=== PATIENT | male | born 1975 | race Caucasian/White ===

== ENCOUNTER → 2017-02-16 | Outpatient (CLI) | payer OTHER ==
[~2017-02-16] MED LIST: BUPR100T8 PO; CLOB-65 TOP; DOCU-149 PO; DOCU-94 PO; FLUT0.15 NAE; GABA800T PO; INSU100I23 INJ; INSU32MI13; LANC1MIS; LISI-729 PO; LSN5 PO; METF500T5 PO; METH10SO PO; NRN800 PO; NVLGIPEN INJ; OMEP40CA PO; OMEP40CA41 PO; RIVA1.5T PO; SIMV-151 PO; SIMV20TA2 PO; SULF800T23 PO; SUMA100T15 PO; SUMA100T16 PO; TRIA37.5 PO; VALA1TAB31 PO; VENL75CA73 PO; WLLSR150 PO; XRL15 PO; [UNRECOGNIZED DRUG - CODE]; [UNRECOGNIZED DRUG - CODE] PO; [UNRECOGNIZED DRUG - REMARK] PO
--- NOTE | 2017-02-17 06:38 | SPLIT NIGHT TECHNICIAN REPORT ---
[facility] Split Night Polysomnogram - Associate Sales Manager Report Study date: 02/16/2017 Referring Physician: Iona Mak M.D. Name: GERALDINE CABALLERO Hellen Associate Sales Manager: Roya Azar [facility]. Date of : 1975 Height: 41 years, Height 6' 1" Sex: Male Weight: 337 lbs Age: 41 BMI: Medications: 44.46 SUMATRIPTAN 100 MG, DOCUSATE SODIUM 100 MG, OMEPRAZOLE 40 MG, LISINOPRIL 5 MG, GABAPENTIN 800 MG, WELLBUTRIN 100 MG, SIMVASTATIN 20 MG, XARELTO 15 MG, METFORMIN 500 MG, METHADONE 10 MG/5 ML Patient History 41 yr-old male here for a baseline/split study. He has had previous sleep testing. He was found to be positive for TONY but could not tolerate CPAP. He is back after weight loss to assess his TONY. His [place] scale is 2. The test was started on room air. ETCO2 testing is included in this study. Room 1 Parameters Monitored NPSG: E1-M2, E2-M1, Fp1-M2, Fp2-M1, F3-M2, F4-M2, F4-M1, C3-M2, C4-M2, C4-M1, O1-M2, O2-M2, O2-M1, T3-M2, T4-M1, P3-M2, P4-M1, CHIN1, CHIN2, HR, EKG, Legs, PFLOW, SNOR, FLOW, CFLOW, Tidal Volume, THOR, ABDO, SpO2, PLTH, CPRESS, ETCO2 Wave, ETCO2, pH SLEEP SUMMARY DATA DIAGNOSTIC TREATMENT Lights Out: 10:14:19 PM 1:35:19 AM Lights On: 1:18:49 AM 5:47:49 AM Total Recording Time (TRT): 184.5 min. 252.5 min. Total Sleep Time (TST): 130.5 min. 216.0 min. NREM Time: 130.5 min. 117.5 min. REM Time: 0.0 min. 98.5 min. Sleep Period Time (SPT): 160.0 min. 244.0 min. Sleep Efficiency (SE): 71 % 86 % Sleep Latency: 24.5 min. 8.5 min. Arousal Index: 42.3 8.3 PAP Treatment Levels: 4, 6, 8, 9 * Optimal Pressure(s) SLEEP STAGING DATA DIAGNOSTIC TREATMENT Duration (min) TST % Duration (min) TST % Stage Wake: 54.0 min. -- 36.5 min. -- WASO: 29.5 min. -- 28.0 min. -- NREM: 130.5 min. 100 % 117.5 min. 54 % Stage N1: 35.5 min. 27 % 13.0 min. 6 % Stage N2: 89.5 min. 69 % 104.5 min. 48 % Stage N3: 5.5 min. 4 % 0.0 min. 0 % REM: 0.0 min. 0 % 98.5 min. 46 % POSITIONAL DATA Event Count Index Event Count Index Supine: 62 42.6 22 9.8 Supine NREM: 62 42.6 9 7.6 Supine REM: N/A N/A 13 12 Non-Supine: 32 36.4 3 2.2 Non-Supine NREM: 32 36.4 1 1.3 Non-Supine REM: N/A N/A 2 3.5 AROUSAL SUMMARY DATA: Event Count Index Event Count Index Apnea Arousals: 11 6.0 3 1.1 Hypopnea Arousals: 14 6.4 1 0.3 Snore Arousals: 51 23.4 6 1.7 PLM Arousals: 3 1.4 0 0.0 Non-Specific Arousals: 10 4.6 17 4.7 Total Arousals: 92 42.3 30 8.3 MYOCLONUS (PLM) Event Count Index Event Count Index PLM: 104 47.8 84 23.3 PLM AROUSAL: 3 1.4 0 0.0 PLM W/O AROUSAL 104 47.8 84 23.3 PLM W/RESP EVENT 15 0.0 0 0.0 MYOCLONUS (PLM) Event Count Index Event Count Index LM: 6 14.3 41 11.4 LM AROUSAL: 6 2.8 3 0.8 LM W/O AROUSAL LM W/RESP EVENT LM NON SPECIFIC 106 48.7 120 33.3 HEART RATE DATA DIAGNOSTIC TREATMENT Sleep (bpm): 84 81 REM (bpm): N/A 91 NREM (bpm): 92 91 Tachycardia Count: 0 0 Tachycardia Duration: 0.00 0 Bradycardia Count: 0 0 Bradycardia Duration: 0.00 0 DIAGNOSTIC PORTION TREATMENT PORTION RESPIRATORY DATA Event Count Index Event Count Index AHI: -- 40.5 -- 6.9 RDI: -- 43.2 -- 7 Obstructive Apnea: 13 6.0 0 0.0 Central Apnea: 0 0.0 4 1.1 Mixed Apnea: 0 0.0 0 0.0 Hypopnea: 75 34.5 21 5.8 RERA: 6 2.8 0 0.0 Total Apneas: 13 6.0 4 1.1 RESPIRATORY DATA REM NREM SLEEP REM NREM SLEEP Supine Position: Obstructive Apneas: N/A 0 0 0 0 0 Central Apneas: N/A 0 0 0 4 4 Mixed Apneas: N/A 0 0 0 0 0 Hypopneas: N/A 61 61 13 5 18 RERA N/A 1 1 0 0 0 Total Supine Events: N/A 62 62 13 9 22 Supine AHI: N/A 42.6 42.6 12 7.6 9.8 Supine RDI: N/A 43.3 43.3 12.2 7.6 9.8 REM NREM SLEEP REM NREM SLEEP Non-Supine Position: Obstructive Apneas: N/A 13 13 0 0 0 Central Apneas: N/A 0 0 0 0 0 Mixed Apneas: N/A 0 0 0 0 0 Hypopneas: N/A 14 14 2 1 3 RERA N/A 5 5 0 0 0 Total Supine Events: N/A 32 32 2 1 3 Supine AHI: N/A 36.4 36.4 3.5 1.3 2.2 Supine RDI: N/A 43.1 43.1 3.5 1.3 2.2 OXYGEN DESTAURATION DATA: Event Count Index Event Count Index REM Desaturations: N/A N/A 36 21.9 NREM Desaturations: 105 48.3 12 6.1 SNORE DATA DIAGNOSTIC TREATMENT Snore Time: 32.9 1:43:49 AM Snore TST%: 11 9 Snore Arousal Count: 51 6 Snore Arousal Index: 23.4 1.7 Desaturation Event Summary: Minimum %SpO2 Event Count Mean/Min/Max Duration(sec.) Desaturation Index % Time In Bed > 90 162 24.5 / 4.3 / 60.0 32.2 71.8 86 - 90 20 23.1 / 7.8 / 60.0 11.0 26.0 81 - 85 0 N/A 0.0 2.2 76 - 80 0 N/A 0.0 0.0 71 - 75 0 N/A 0.0 0.0 66 - 70 0 N/A 0.0 0.0 61 - 65 0 N/A 0.0 0.0 56 - 60 0 N/A 0.0 0.0 51 - 55 0 N/A 0.0 0.0 < 50 0 N/A 0.0 0.0 OXYGEN SATURATION DATA DIAGNOSTIC TREATMENT SpO2 Mean Sleep: 92 % 91 % SpO2 Mean REM: N/A % 91 % SpO2 Mean NREM: 92 % 91 % SpO2 Minimum Sleep: 86 % 83 % SpO2 Minimum REM: N/A % 83 % SpO2 Minimum NREM: 86 % 83 % Time Below 90% (TST): 9.7 49.2 Time Below 88% (TST): 0.3 15.7 Total REM NREM Awake <50% 0.0 min. 0.0 min. 0.0 min. 0.0 min. 51 - 60% 0.0 min. 0.0 min. 0.0 min. 0.0 min. 61 - 70% 0.0 min. 0.0 min. 0.0 min. 0.0 min. 71 - 80% 0.0 min. 0.0 min. 0.0 min. 0.0 min. 81 - 90% 118.8 min. 49.5 min. 65.5 min. 3.8 min. 91 - 100% 302.3 min. 48.8 min. 181.0 min. 72.6 min. Average 92 91 92 94 Minimum SpO2 80 83 83 80 Desaturation Event Index 22.8 21.9 28.3 8.6 # Desat. Events below 89% 42 19 21 2 Time(%) with Saturation below 89% 7.4 4.2 2.4 0.8 Time(min.) with Saturation below 89% 31.3 17.9 10.1 3.3 Recording Associate Sales Manager Comments: Mr. Caballero slept in the right, supine, and prone positions. No cardiac arrhythmias were noted. PLMs were noted. No bruxism noted. Snoring was noted and scored as a 4 on a scale of 1 through 5. (0=no snoring, 5=snoring loud enough to be heard through a closed door or down the kelly way) At 1:30 am, he met specific Split-Night criteria during the diagnostic portion of this study. CPAP was initiated at +4 CMH2O and up-titrated to a level of +9 CMH2O, Cflex 2 which nearly eliminated all respiratory events and snoring. An AirFit F10 full face mask size medium from [employer] was used during titration He awoke to use the restroom two times during the night. Mr. Caballero stated that he slept poorly. The final report will be interpreted and signed by a sleep physician. The completed physician report will then be placed in the patient medical record. Therapy Event: Therapy (cm H20) 0 4 6 8 9 Total Time at Pressure (min.) 184.5 32.7 57.3 119.5 43.0 TST at Pressure (min.) 130.5 24.2 57.3 91.5 43.0 # Periods 1 1 1 1 1 Sleep Onset (min.) 24.5 8.5 0.0 0.0 0.0 REM Onset (min.) N/A N/A 13.3 0.0 8.5 Sleep Efficiency % 70 74 100 76 100 Wakefulness (%) 29.3 26.0 0.0 23.4 0.0 Wakefulness (min.) 54.0 8.5 0.0 28.0 0.0 NREM 1 (%) 19.2 9.2 0.0 8.4 0.0 NREM 1 (min.) 35.5 3.0 0.0 10.0 0.0 NREM 2 (%) 48.5 64.9 23.1 51.5 19.7 NREM 2 (min.) 89.5 21.2 13.3 61.5 8.5 NREM 3 (%) 3.0 0.0 0.0 0.0 0.0 NREM 3 (min.) 5.5 0.0 0.0 0.0 0.0 REM (%) 0.0 0.0 76.9 16.7 80.3 REM (min.) 0.0 0.0 44.1 19.9 34.5 # Arousals 92 5 8 17 0 Arousal Index 42.3 12.4 8.4 11.2 0.0 # Snore 1,688 293 258 107 134 Snore Index 776.1 725.1 270.1 70.2 187.2 AHI 40.5 12.4 13.6 3.3 2.8 AHI Supine 42.6 12.4 13.6 4.5 N/A AHI Non-Supine 36.4 N/A N/A 1.6 2.8 NREM AHI 40.5 12.4 4.5 3.4 0.0 REM AHI N/A N/A 16.3 3.0 3.5 RDI 43.2 12.4 13.6 3.3 2.8 # Obstructive 13 0 0 0 0 # Central Ap 0 3 0 1 0 # Mixed 0 0 0 0 0 # Hypopneas 75 2 13 4 2 RERAS 6 0 0 0 0 Total Respiratory Events 94 5 13 5 2 Time Below SpO2 89.00% (min.) 1.9 0.0 14.5 11.0 0.6 Mean NREM SpO2 (%) 92 92 92 91 91 Mean REM SpO2 (%) N/A N/A 90 91 92 Mean Sleep SpO2 (%) 92 92 90 91 92 Min NREM SpO2 (%) 86 89 87 83 89 Min REM SpO2 (%) N/A N/A 83 86 86 Position Supine (min.) 86.0 24.2 57.3 53.4 0.0 Position Non-supine (min.) 44.5 0.0 0.0 38.0 43.0 LM Index Sleep 62.1 22.3 22.0 51.2 23.7 LM Index NREM 62.1 22.3 0.0 51.2 0.0 LM Index REM N/A N/A 28.6 51.2 29.6 Mean Heart Rate (bpm) 84 79 81 82 79 Min Heart Rate (bpm) 74 71 71 72 68
--- NOTE | 2017-03-03 08:49 | POLYSOMNOGRAPH REPORT ---
REFERRING PERSON: Dr. Eris Mak. LOGISTICS CENTER MANAGER: Roya Azar. Mr. Blake is a 41-year-old male sent for baseline sleep study. He has had previous sleep testing and has been intolerant to CPAP in the past. However, he has lost at least 100 pounds since then. His [place] sleepiness scale score on the evening of this study is 2. BMI is 44.46. Following the technical and digital specifications of the [employer] [employer] (AASM) a standard diagnostic polysomnogram was performed monitoring EEG, EOG, EMG (chin and leg deviations), oxygen saturation, body position, digital video, respiratory effort and airflow. The sleep Stage and event scoring was based on the AASM Manual for the Scoring of Sleep and Associated Events 2007 edition. Apneas are defined as a drop in the peak thermal sensor excursion by >90% of baseline for at least 10 seconds. Hypopneas were scored using the 4% oxygen desaturation rule (4A-[employer]) and a decrease in the nasal pressure excursions by >30% of baseline for at least 10 seconds. Respiratory effort-related arousal (RERA's) is defined as a sequence of breaths lasting at least 10 seconds characterized by increasing respiratory effort or flattening of the nasal pressure waveform leading to an arousal from sleep when the sequence of breaths does not meet criteria for an apnea or hypopnea. Apnea Hypopnea index (AHI) is defined as the number of apneas and hypopneas occurring in an hour of sleep. Respiratory disturbance index (RDI) is defined as the number of apneas, hypopneas, and RERA's occurring in an hour of sleep. Mr. Blake did qualify for a split night sleep study. He was observed for 130.5 minutes of sleep time. During that time he had 27% N1 sleep, 69% in N2 sleep and 4% N3 sleep. There were 92 cortical arousals from sleep. Ten of these arousals were nonspecific, 3 were due to periodic limb movements of sleep, 51 were due to snoring and the remaining 25 were due to respiratory events. There were 104 periodic limb movements noted on this test. Limb movement with arousal index was 1.4. Mean saturation during observation was 92% with desaturations to 86%. Saturations were less than 89% for 9.7% of total sleep time during observation. There were 13 obstructive apneas, no central or mixed apneas during observation. There were 75 hypopneas and 6 RERA. Apnea-hypopnea index was 40.5 with an RDI of 43.2. Therefore, at 1:30 a.m., this patient was started on CPAP therapy. He used a medium AirFit F10 full facemask by [facility] for his titration. He was titrated from a CPAP pressure of 4 to a CPAP pressure of 9 over the remainder of the night. Increasing pressures were needed to prevent apneas, hypopneas and arousals. On a pressure of 9, he slept for 43 minutes. There were 34.5 minutes of non-supine REM sleep on this pressure. AHI and RDI were both 2.8 and saturations were less than 89 for 0.6 minutes of recorded time. IMPRESSION AND PLAN: Successful split night sleep study in this patient with severe sleep apnea despite 100 pounds of weight loss. I would recommend that he be started on CPAP at a pressure of 9. A download from his machine can be reviewed in 1 month both to check compliance as well as AHI and further pressure adjustments can occur at that time.
== END ==
LOC: C.NEUR 21:00
PROVIDERS: ATTEND Family Medicine
DX: G47.33 Obstructive sleep apnea (adult) (pediatric) (principal); Z99.89 Dependence on other enabling machines and devices; E66.9 Obesity, unspecified

== ENCOUNTER 2017-08-24 10:47 | Inpatient (IN) | payer OTHER ==
[2017-08-24] VITALS (19 sets, daily range): BP systolic 72–157; BP diastolic 44–107; PULSE 91–101; TEMP 36.7; O2SAT 90–96; BMI 42.1
[~2017-08-24] VITALS: Ht 185.4 cm; Wt 157.6 kg
[~2017-08-24 10:47] MED LIST changes: -DOCU-149 PO; -INSU100I23 INJ; -INSU32MI13; -LANC1MIS; -LSN5 PO; -METF500T5 PO; -NRN800 PO; -NVLGIPEN INJ; -OMEP40CA41 PO; -SIMV-151 PO; -SUMA100T15 PO; -VALA1TAB31 PO; -WLLSR150 PO; -XRL15 PO; -[UNRECOGNIZED DRUG - CODE]; -[UNRECOGNIZED DRUG - CODE] PO
[2017-08-24] MEDS: NALOXONE HCL 0.4 MG/1 ML VIAL/CARP IV STA ×2 (11:13→11:28)
--- NOTE | 2017-08-24 11:18 | EMERGENCY ROOM VISIT NOTE ---
History Report prepared by Alessandro: Michelle Wilder Under the Supervision of: Dr. Sheldon Myers M.D. First contact with patient: 11:03 Chief Complaint: FALL Stated Complaint: FELL, ACTING NOT RIGHT, HEAD BACK FOOT History of Present Illness The patient is a 42 year old male who presents to the Emergency Room with complaints of a sudden, unwitnessed fall that occurred a few days ago. He currently rates his discomfort as a 2/10 in severity. Per the patient's mother , the patient fell and hit his head and back. She states that since then the patient has been confused. The patient's mother states that the patient has been drowsy for the past few days, noting that the patient has not been sleeping. She states that the patient has had a decrease in appetite. The patient's mother states that the patient is on Methadone and came here straight from the Methadone clinic. She states that the patient has complained of foot pain. Source of History: patient Onset: few days ago Position: other (global) Symptom Intensity: 2/10 Quality: other (fall) Timing: other (sudden) Note: Associated symptoms: drowsy, confused Review of Systems See HPI for pertinent positives & negatives. A total of 10 systems reviewed and were otherwise negative. Past Medical & Surgical Medical Problems: (1) Altered mental status (2) Cellulitis of forearm, left (3) Chest pain (4) Chronic back pain (5) Chronic deep venous thrombosis (6) Chronic dental pain (7) CHRONIC PAIN SYNDROME (8) Degeneration of lumbar intervertebral disc (9) Depression (10) Discitis (11) DKA, type 1, not at goal (12) Drug overdose (13) Dyslipidemia (14) Epistaxis (15) Factor V Leiden mutation (16) Foot fracture, right (17) GERD (gastroesophageal reflux disease) (18) HTN (hypertension) (19) Migraine (20) Multiple injuries 2007 (21) Narcotic withdrawal (22) Noncompliance with medication regimen (23) Osteomyelitis of thoracic spine (24) Pneumonia (25) Pulmonary embolism (26) Recurrent DVT (27) Respiratory failure (28) Stasis dermatitis, acute (29) Superficial phlebitis of arm (30) TOBACCO USE DISORDER Surgical Problems: (1) s/p left hip arthroscopy (2) s/p left knee ACL repair Family History FHx: diabetes Social History Smoking Status: Current Every Day Smoker Alcohol Use: none Drug Use: none Marital Status: single Housing Status: lives with family Occupation Status: student Current/Historical Medications Scheduled Bupropion HCl (Bupropion HCl Sr), 150 MG PO DAILY Docusate Sodium (Ra Col-Rite), 100 MG PO BID Lisinopril (Lisinopril), 5 MG PO DAILY Metformin Hcl Er (Glucophage Er), 500 MG PO DAILY Omeprazole (Prilosec), 40 MG PO DAILY Simvastatin (Simvastatin), 20 MG PO HS Allergies Coded Allergies: Amoxicillin (Verified Allergy, Severe, Hives, swelling of tongue and throat., 08/24/17) Reported by PT. Clindamycin (Verified Allergy, Severe, lip swelling, rash, 08/24/17) Penicillins (Unverified Allergy, Severe, Hives, swelling of tongue and throat., 08/24/17) Reported by PT. Aspirin (Verified Allergy, Intermediate, GI SYMPTOMS, 08/24/17) CI Pigment Blue 63 (Verified Allergy, Intermediate, DELIRIUM, 08/24/17) Duloxetine (Verified Allergy, Intermediate, DELIRIUM, 08/24/17) Ketorolac Tromethamine (Verified Allergy, Intermediate, GI SYMPTOMS, 08/24) NSAIDs (Unverified Adverse Reaction, Intermediate, SUICIDAL/HOMICIDAL, ) Tramadol (Unverified Adverse Reaction, Intermediate, SUICIDAL/HOMICIDAL, 08/24/17) Acetaminophen (Unverified Adverse Reaction, Unknown, Abdominal cramping and diarrhea., 08/24/17) Reported by PT. Azithromycin (Verified Adverse Reaction, Unknown, abd pain cramps, ) Physical Exam Vital Signs Date Time Temp Pulse Resp B/P (MAP) Pulse Ox O2 Delivery O2 Flow Rate FiO2 08/24/17 14:13 97 08/24/17 14:02 98 23 149/96 95 Room Air 08/24/17 13:10 98 130/96 90 Nasal Cannula 4.0 08/24/17 12:35 96 149/83 93 Room Air 08/24/17 11:29 104 08/24/17 11:27 102 156/115 90 Nasal Cannula 4.0 08/24/17 11:16 91 Nasal Cannula 4.0 08/24/17 11:16 91 Nasal Cannula 4.0 08/24/17 10:54 36.7 108 18 153/91 86 Room Air Physical Exam GENERAL: Falling asleep on exam, cannot answer any questions. HEAD: Normocephalic atraumatic EYES: Ocular movements intact pupils equal and react to light OROPHARYNX mucous membranes are moist no exudates present no erythema or edema present NECK: Supple no nuchal rigidity CHEST: Good equal expansion LUNGS: Clear and equal to auscultation CARDIAC: Normal S1 and S2 ABDOMEN: Soft nontender no guarding BACK: No CVA tenderness EXTREMITIES: No pain upon palpation normal muscle strength in all groups no clubbing cyanosis or edema NEURO: Falling asleep on exam, cannot answer any questions. Medical Decision & Procedures ER Provider Diagnostic Interpretation: Radiology results as stated below per my review and radiologist interpretation: CT HEAD WITHOUT CONTRAST (CT) CLINICAL HISTORY: Trauma. Acute change in mental status. COMPARISON STUDY: 05/28/2014 TECHNIQUE: Axial CT of the brain is performed from the vertex to the skull base. IV contrast was not administered for this examination. A dose lowering technique was utilized adhering to the principles of ALARA. CT DOSE: 614.27 mGy.cm FINDINGS: No intra or extra-axial mass lesions are visualized. There is no CT evidence of acute cortical infarction. There is no evidence of midline shift. There is no acute hemorrhage. No calvarial fractures are visualized. There is no evidence of pathologic ventricular dilatation. There is no evidence of acute sinusitis IMPRESSION: No acute intracranial findings Electronically signed by: Raymon Brito M.D. 08/24/2017 12:33 PM Dictated Date/Time: 08/24/2017 12:31 PM CHEST ONE VIEW PORTABLE CLINICAL HISTORY: Pt c/o hypoxia dyspnea COMPARISON STUDY: 10/08/2014 FINDINGS: Minimal bibasilar plaque atelectasis IMPRESSION: Minimal basilar atelectasis. Otherwise negative study. The above report was generated using voice recognition software. It may contain grammatical, syntax or spelling errors. Electronically signed by: Robel Faulkner M.D. 08/24/2017 12:24 PM Dictated Date/Time: 08/24/2017 12:21 PM (CHEST FOR PE) ANGIO WITH CT DOSE: 736.89 mGy.cm HISTORY: Chest pain dyspnea TECHNIQUE: Multiaxial CT images of the chest were performed following the intravenous administration of contrast to evaluate the pulmonary arteries. Maximal intensity projection images were also obtained. A dose lowering technique was utilized adhering to the principles of ALARA. COMPARISON STUDY: 10/08/2014 FINDINGS: There is a normal caliber thoracic aorta with no evidence for dissection. There is no evidence for pulmonary embolus. No pleural effusions. No pneumothorax. The liver and spleen are unremarkable. No mediastinal or hilar lymphadenopathy. The central airways are patent. The lungs are clear. Mild peribronchial thickening throughout both hemithoraces. Fatty infiltration of liver. IMPRESSION: 1. Study is negative for pulmonary embolus. 2. Lungs are clear. 3. Mild peribronchial thickening bilaterally. 4. Fatty infiltration of liver The above report was generated using voice recognition software. It may contain grammatical, syntax or spelling errors. Electronically signed by: Robel Faulkner M.D. 08/24/2017 12:42 PM Dictated Date/Time: 08/24/2017 12:34 PM Laboratory Results 08/24/17 11:30 Red Blood Count 6.08, Mean Corpuscular Volume 98.7, Mean Corpuscular Hemoglobin 31.6, Mean Corpuscular Hemoglobin Concent 32.0, Mean Platelet Volume 12.9, Neutrophils (%) (Auto) 70.1, Lymphocytes (%) (Auto) 19.8, Monocytes (%) (Auto) 9.4, Eosinophils (%) (Auto) 0.2, Basophils (%) (Auto) 0.2, Neutrophils # (Auto) 9.28, Lymphocytes # (Auto) 2.61, Monocytes # (Auto) 1.24, Eosinophils # (Auto) 0.02, Basophils # (Auto) 0.02 08/24/17 14:06 Test 08/24/17 11:30 08/24/17 11:55 08/24/17 13:54 08/24/17 14:06 White Blood Count 13.21 K/uL (4.8-10.8) Red Blood Count 6.08 M/uL (4.7-6.1) Hemoglobin 19.2 g/dL (14.0-18.0) Hematocrit 60.0 % (42-52) Mean Corpuscular Volume 98.7 fL (80-100) Mean Corpuscular Hemoglobin 31.6 pg (25-34) Mean Corpuscular Hemoglobin Concent 32.0 g/dl (32-36) Platelet Count 191 K/uL (130-400) Mean Platelet Volume 12.9 fL (7.4-10.4) Neutrophils (%) (Auto) 70.1 % Lymphocytes (%) (Auto) 19.8 % Monocytes (%) (Auto) 9.4 % Eosinophils (%) (Auto) 0.2 % Basophils (%) (Auto) 0.2 % Neutrophils # (Auto) 9.28 K/uL (1.4-6.5) Lymphocytes # (Auto) 2.61 K/uL (1.2-3.4) Monocytes # (Auto) 1.24 K/uL (0.11-0.59) Eosinophils # (Auto) 0.02 K/uL (0-0.5) Basophils # (Auto) 0.02 K/uL (0-0.2) RDW Standard Deviation 49.8 fL (36.4-46.3) RDW Coefficient of Variation 13.7 % (11.5-14.5) Immature Granulocyte % (Auto) 0.3 % Immature Granulocyte # (Auto) 0.04 K/uL (0.00-0.02) Estimated Average Glucose 435 mg/dl Hemoglobin A1c 16.8 % (4.5-5.6) Total Bilirubin 0.8 mg/dl (0.2-1) Aspartate Amino Transf (AST/SGOT) U/L (15-37) Alanine Aminotransferase (ALT/SGPT) 265 U/L (12-78) Alkaline Phosphatase 145 U/L (45-117) Total Protein 9.2 gm/dl (6.4-8.2) Albumin 3.9 gm/dl (3.4-5.0) Globulin 5.3 gm/dl (2.5-4.0) Albumin/Globulin Ratio 0.7 (0.9-2) Urine Color YELLOW Urine Appearance CLEAR (CLEAR) Urine pH 5.0 (4.5-7.5) Urine Specific [place] 1.042 (1.000-1.030) Urine Protein NEG (NEG) Urine Glucose (UA) 3+ (NEG) Urine Ketones TRACE (NEG) Urine Occult Blood NEG (NEG) Urine Nitrite NEG (NEG) Urine Bilirubin NEG (NEG) Urine Urobilinogen NEG (NEG) Urine Leukocyte Esterase NEG (NEG) Urine Opiates Screen NEG (NEG) Urine Methadone, Qualitative POS (NEG) Urine Barbiturates NEG (NEG) Urine Phencyclidine (PCP) Level NEG (NEG) Ur Amphetamine/Methamphetamine NEG (NEG) MDMA (Ecstasy) Screen NEG (NEG) Urine Benzodiazepines Screen NEG (NEG) Urine Cocaine Metabolite NEG (NEG) Urine Marijuana (THC) NEG (NEG) Prothrombin Time 11.1 SECONDS (9.0-12.0) Prothromb Time International Ratio 1.0 (0.9-1.1) Activated Partial Thromboplast Time 20.6 SECONDS (21.0-31.0) Partial Thromboplastin Ratio 0.8 Anion Gap 10.0 mmol/L (3-11) Est Creatinine Clear Calc Drug Dose 82.8 ml/min Estimated GFR () 55.6 Estimated GFR (Non- 48.0 BUN/Creatinine Ratio 23.1 (10-20) Calcium Level 10.1 mg/dl (8.5-10.1) Phosphorus Level 7.1 mg/dl (2.5-4.9) Magnesium Level 3.2 mg/dl (1.8-2.4) Total Creatine Kinase 268 U/L (39-308) Creatine Kinase MB 2.2 ng/ml (0.5-3.6) Creatine Kinase MB Ratio 0.8 (0-3.0) Troponin I < 0.015 ng/ml (0-0.045) Beta-Hydroxybutyric Acid 19.26 mg/dL (0.2-2.81) Test 08/24/17 14:25 08/24/17 14:39 08/24/17 14:40 Arterial Blood pH 7.35 (7.35-7.45) Arterial Blood Partial Pressure CO2 64 mmHg (35-46) Arterial Blood Partial Pressure O2 64 mm/Hg (80-95) Arterial Blood HCO3 35 mmol/L (19-24) Arterial Blood Oxygen Saturation 90.3 % (90-95) Arterial Blood Base Excess 6.1 mEq/L (-9-1.8) Arterial Blood Gas Delivery 4L Salazar Test POS (POS) Labs reviewed by ED physician. Medications Administered Medications (Trade) Dose Ordered Sig/Ehsan Route Start Time Stop Time Status Last Admin Dose Admin Naloxone HCl (Narcan Inj) 0.4 mg NOW STAT IV 08/24/17 11:13 08/24/17 11:15 DC 08/24/17 11:13 0.4 MG Naloxone HCl 5 mg/ Sodium Chloride 112.5 ml @ 0 mls/hr Q0M STAT IV 08/24/17 11:20 08/24/17 11:21 DC 08/24/17 13:12 4 MLS/HR Ondansetron HCl (Zofran Inj) 4 mg NOW STAT IV 08/24/17 12:10 08/24/17 12:11 DC 08/24/17 13:07 4 MG Naloxone HCl (Narcan Inj) 0.4 mg NOW STAT IV 08/24/17 13:09 08/24/17 13:10 DC 08/24/17 13:09 0.2 MG Sodium Chloride 1,000 ml @ 999 mls/hr Q1H1M STAT IV 08/24/17 13:57 08/24/17 14:57 DC 08/24/17 13:57 999 MLS/HR Sodium Chloride 1,000 ml @ 999 mls/hr Q1H1M STAT IV 08/24/17 13:57 08/24/17 14:57 DC 08/24/17 13:57 999 MLS/HR Naloxone HCl (Narcan Inj) 0.2 mg NOW STAT IV 08/24/17 14:31 08/24/17 14:32 DC 08/24/17 14:31 0.2 MG Insulin Human Regular 5.5 unit/ Syringe 5.5 ml @ 1 mls/min TODAY@1500 IV 08/24/17 15:00 08/24/17 15:06 DC 08/24/17 15:05 1 MLS/MIN Insulin Human Regular 250 units/ Sodium Chloride 252.5 ml @ 0 mls/hr Q24H IV 08/24/17 15:00 08/24/17 23:59 08/24/17 15:09 5.4 MLS/HR ECG Indication: other (confusion) Rate (beats per minute): 102 Rhythm: sinus tachycardia Findings: no acute ischemic change, no ectopy ED Course 1105: Past medical records reviewed. The patient was evaluated in room C10. A complete history and physical examination was performed. 1113: Ordered Narcan Inj 0.4 mg IV. 1155: Per nursing staff the patient responded well to the Narcan. 1202: I reevaluated the patient and he is wide awake 1210: Ordered Zofran Inj 4 mg IV. Medical Decision Differential diagnosis: Etiologies such as metabolic, infection, hypoglycemia, electrolyte abnormalities , cardiac sources, intracerebral event, toxicologic, neurologic, as well as others were entertained. This is a 42-year-old male who presents emergency department complaining of immediately falling asleep. The patient is hypoxic. He has been this way since leaving methadone clinic this morning. The patient was given Narcan which she immediately woke up with however after it ran out he immediately past backout. When he does this he is oxygen desaturates. Laboratory work was obtained the patient has a blood sugar in the thousands. Based on this finding the patient was given 2 L of fluid. An ABG was obtained and the patient was given insulin and placed on an insulin drip. I will note his potassium is 5.2. I did discuss the case with the hospitalist service who agreed to admit the patient. Patient and mother were in agreement with treatment plan. Medication Reconcilliation Current Medication List: was personally reviewed by me Blood Pressure Screening Patient's blood pressure: Elevated blood pressure Blood pressure disposition: Referred to PCP Impression Primary Impression: DKA, type 1, not at goal Critical Care I have personally spent greater than 90 minutes of critical care time in the direct management of this patient. This includes bedside care, interpretation of diagnostic studies, and testing, discussion with consultants, patient, and family members, and other required patient management activities. This 90 minutes is in excess of all separately billable procedures. Scribe Attestation The scribe's documentation has been prepared under my direction and personally reviewed by me in its entirety. I confirm that the note above accurately reflects all work, treatment, procedures, and medical decision making performed by me. Departure Information Dispostion Still a Patient Referrals Dashawn Fuentes M.D.([facility]) (PCP) Patient Instructions My [facility]
[2017-08-24] MEDS ORDERED: NALOXONE HCL INJ 5 MG in SODIUM CHLORIDE 0.9% 100ML 100 ML IV STA (11:20)
[2017-08-24 11:59] LABS: BASO % 0.2 %; BASO ABS # 0.02 K/uL (0-0.2); COMPLETE YES; EOS % 0.2 %; IG% 0.3 %; LYMPH % 19.8 %; LYMPH ABS # 2.61 K/uL (1.2-3.4); MEAN CELL VOLUME 98.7 fL (80-100); MEAN CORPUSCULAR HEMOGLOBIN 31.6 pg (25-34); MEAN PLATELET VOLUME 12.9 fL (7.4-10.4); MONO % 9.4 %; NEUT % 70.1 %; PLATELET COUNT 191 K/uL (130-400); RED BLOOD COUNT 6.08 M/uL (4.7-6.1); WHITE BLOOD COUNT 13.21 K/uL (4.8-10.8)
[2017-08-24] MEDS ORDERED: ONDANSETRON INJ 2 MG/ML 2 ML VIAL IV STA (12:10)
[2017-08-24 12:18] LABS: URINE APPEARANCE CLEAR (CLEAR); URINE BILIRUBIN NEG (NEG); URINE COLOR YELLOW; URINE NITRITE NEG (NEG); URINE SPECIFIC GRAVITY 1.042 (1.000-1.030); UROBILINOGEN NEG (NEG); ZZUR CULT IF INDIC CLEAN CATCH NO
[2017-08-24 12:20] LABS: MANUAL MICROSCOPIC REQUIRED? NO; REVIEW REQ? NO
--- NOTE | 2017-08-24 12:25 | DIAGNOSTIC IMAGING REPORT ---
CHEST ONE VIEW PORTABLE CLINICAL HISTORY: Pt c/o hypoxia dyspnea COMPARISON STUDY: 10/08/2014 FINDINGS: Minimal bibasilar plaque atelectasis IMPRESSION: Minimal basilar atelectasis. Otherwise negative study. The above report was generated using voice recognition software. It may contain grammatical, syntax or spelling errors. Electronically signed by: Robel Faulkner M.D. 08/24/2017 12:24 PM Dictated Date/Time: 08/24/2017 12:21 PM
--- NOTE | 2017-08-24 12:34 | DIAGNOSTIC IMAGING REPORT ---
CT HEAD WITHOUT CONTRAST (CT) CLINICAL HISTORY: Trauma. Acute change in mental status. COMPARISON STUDY: 05/28/2014 TECHNIQUE: Axial CT of the brain is performed from the vertex to the skull base. IV contrast was not administered for this examination. A dose lowering technique was utilized adhering to the principles of ALARA. CT DOSE: 614.27 mGy.cm FINDINGS: No intra or extra-axial mass lesions are visualized. There is no CT evidence of acute cortical infarction. There is no evidence of midline shift. There is no acute hemorrhage. No calvarial fractures are visualized. There is no evidence of pathologic ventricular dilatation. There is no evidence of acute sinusitis IMPRESSION: No acute intracranial findings Electronically signed by: Raymon Brito M.D. 08/24/2017 12:33 PM Dictated Date/Time: 08/24/2017 12:31 PM
--- NOTE | 2017-08-24 12:44 | DIAGNOSTIC IMAGING REPORT ---
(CHEST FOR PE) ANGIO WITH CT DOSE: 736.89 mGy.cm HISTORY: Chest pain dyspnea TECHNIQUE: Multiaxial CT images of the chest were performed following the intravenous administration of contrast to evaluate the pulmonary arteries. Maximal intensity projection images were also obtained. A dose lowering technique was utilized adhering to the principles of ALARA. COMPARISON STUDY: 10/08/2014 FINDINGS: There is a normal caliber thoracic aorta with no evidence for dissection. There is no evidence for pulmonary embolus. No pleural effusions. No pneumothorax. The liver and spleen are unremarkable. No mediastinal or hilar lymphadenopathy. The central airways are patent. The lungs are clear. Mild peribronchial thickening throughout both hemithoraces. Fatty infiltration of liver. IMPRESSION: 1. Study is negative for pulmonary embolus. 2. Lungs are clear. 3. Mild peribronchial thickening bilaterally. 4. Fatty infiltration of liver The above report was generated using voice recognition software. It may contain grammatical, syntax or spelling errors. Electronically signed by: Robel Faulkner M.D. 08/24/2017 12:42 PM Dictated Date/Time: 08/24/2017 12:34 PM
[2017-08-24] MEDS ORDERED: OPTIRAY 320 IV PRN (12:45)
[2017-08-24] MEDS ORDERED: NALOXONE HCL 0.4 MG/1 ML VIAL/CARP IV STA ×2 (13:09→14:31)
[2017-08-24] MEDS ORDERED: LSN5 PO (13:10)
[2017-08-24] MEDS ORDERED: DOCU-149 PO (13:10)
[2017-08-24] MEDS ORDERED: WLLSR150 PO (13:10)
[2017-08-24] MEDS ORDERED: OMEP40CA41 PO (13:11)
[2017-08-24] MEDS ORDERED: SIMV-151 PO (13:11)
[2017-08-24 13:13] LABS: BENZODIAZEPINE, URINE NEG (NEG); COCAINE,URINE NEG (NEG); PHENCYCLIDINE, URINE NEG (NEG)
[2017-08-24] MEDS ORDERED: METF500T5 PO (13:14)
[2017-08-24 13:54] LABS: ALB/GLOB RATIO 0.7 (0.9-2); ALKALINE PHOSPHATASE 145 U/L (45-117); ALT/SGPT 265 U/L (12-78); BLOOD UREA NITROGEN 39 mg/dl (7-18); BUN/CREATININE RATIO 18.5 (10-20); CALCIUM 9.9 mg/dl (8.5-10.1); CHLORIDE 96 mmol/L (98-107); CREATININE 2.13 mg/dl (0.60-1.40); GLUCOSE 1152 mg/dl (70-99); SODIUM 138 mmol/L (136-145)
[2017-08-24] MEDS ORDERED: SODIUM CHLORIDE 0.9% 1000ML 1,000 ML IV STA ×2 (13:57)
[2017-08-24] MEDS ORDERED: NovoLIN-R INSULIN PER UNIT CHARGE IV STA (13:57)
[2017-08-24] MEDS ORDERED: INSULIN IV INFUSION PROTOCOL STA (14:09)
[2017-08-24] MEDS ORDERED: SEVERE STRESS LEVEL ONE (14:15)
[2017-08-24] MEDS ORDERED: PHARMACY GLYCEMIC MGMT CONSULT PRN (14:15)
[2017-08-24] MEDS ORDERED: DKA GOAL RANGE 150-250 mg/dl 1 EA ONE (14:15)
[2017-08-24 14:30] LABS: PARTIAL THROMBOPLASTIN RATIO 0.8; PROTHROMBIN TIME (PATIENT) 11.1 SECONDS (9.0-12.0)
[2017-08-24 14:32] LABS: ESTIMATED AVERAGE GLUCOSE 435 mg/dl; HA1C FLAG Normal (Normal)
[2017-08-24 14:39] LABS: ALLEN TEST POS (POS); ARTERIAL BLD GAS O2 SATURATION 90.3 % (90-95); ARTERIAL BLOOD GAS BASE EXCESS 6.1 mEq/L (-9-1.8); ARTERIAL BLOOD GAS HCO3 35 mmol/L (19-24); ARTERIAL BLOOD GAS PO2 64 mm/Hg (80-95); ARTERIAL BLOOD GAS pH 7.35 (7.35-7.45); O2 ADMINISTRATION 4L
[2017-08-24 14:43] LABS: BLOOD UREA NITROGEN 39 mg/dl (7-18); BUN/CREATININE RATIO 23.1 (10-20); CALCIUM 10.1 mg/dl (8.5-10.1); CARBON DIOXIDE 34 mmol/L (21-32); CHLORIDE 100 mmol/L (98-107); CKMB/CK RATIO 0.8 (0-3.0); GLUCOSE 909 mg/dl (70-99); MAGNESIUM 3.2 mg/dl (1.8-2.4); PHOSPHORUS 7.1 mg/dl (2.5-4.9); POTASSIUM 5.1 mmol/L (3.5-5.1); SODIUM 144 mmol/L (136-145)
[2017-08-24] MEDS ORDERED: DEXTROSE 50% 50 ML SYR IV PRN (14:45)
[2017-08-24] MEDS ORDERED: ACETAMINOPHEN 325 MG TAB PO PRN (14:45)
[2017-08-24] MEDS ORDERED: GLUCOSE 40% GEL 15 GM TUBE PO PRN (14:45)
[2017-08-24] MEDS ORDERED: GLUCOSE 10 TABS/TUBE PO PRN (14:45)
[2017-08-24] MEDS ORDERED: GLUCAGON FOR INJ 1 MG VIAL SQ PRN (14:45)
--- NOTE | 2017-08-24 14:59 | Pharmacy Progress Note ---
Glycemic Control Intl Consult Date of Service Aug 24, 2017. Scope Glycemic Pharmacist consulted by Dr Nagel on 08/24/17 for glycemic control and to write orders per [facility] inpatient glycemic control protocol Objective Weight (Kilograms): 144.000 Accuchecks BSG (last 24hrs): Test 08/24/17 11:30 08/24/17 14:06 Random Glucose 1152 mg/dl (70-99) 909 mg/dl (70-99) Laboratory Data (last 24hrs) Test 08/24/17 11:30 08/24/17 14:06 Anion Gap mmol/L 10.0 mmol/L BUN/Creatinine Ratio 18.5 23.1 Blood Urea Nitrogen 39 mg/dl 39 mg/dl Creatinine 2.13 mg/dl 1.70 mg/dl Hemoglobin A1c 16.8 % Potassium Level mmol/L 5.1 mmol/L Sodium Level 138 mmol/L 144 mmol/L White Blood Count 13.21 K/uL Red Blood Count 6.08 M/uL Hemoglobin 19.2 g/dL Hematocrit 60.0 % Mean Corpuscular Volume 98.7 fL Mean Corpuscular Hemoglobin 31.6 pg Mean Corpuscular Hemoglobin Concent 32.0 g/dl Platelet Count 191 K/uL Mean Platelet Volume 12.9 fL Neutrophils (%) (Auto) 70.1 % Lymphocytes (%) (Auto) 19.8 % Monocytes (%) (Auto) 9.4 % Eosinophils (%) (Auto) 0.2 % Basophils (%) (Auto) 0.2 % Neutrophils # (Auto) 9.28 K/uL Lymphocytes # (Auto) 2.61 K/uL Monocytes # (Auto) 1.24 K/uL Eosinophils # (Auto) 0.02 K/uL Basophils # (Auto) 0.02 K/uL HbA1c Test 08/24/17 11:30 Hemoglobin A1c 16.8 % (4.5-5.6) H Recent Pertinent Medications Outpatient Anti-diabetic Regimen: * metformin 500 mg PO daily Risk Factors for Insulin Resistance: * Diet: NPO except ice chips Assessment & Plan ASSESSMENT: * ADA & AACE recommend a goal blood sugar range 140-180 mg/dl for the majority of critically ill & non-critically ill patients. However, more stringent targets may be selected in individual cases. Will utilize goal of 200-300mg/dl based on patient age & comorbidities. * Mr Blake is a 42 y/o T2DM who is admitted after suffering a fall several days ago. His mother reports a several day history of decreased PO intake. Currently, patient is receiving a Narcan infusion (receives methadone at home); his admitting blood sugar is 1152 mg/dL. This corrected slightly to 907 mg/dL with several fluid boluses and no insulin. * Recommend starting insulin infusion with slightly higher goal range due to the patient's HbA1C. Also recommend initiating rapid fluid replacement as typical fluid loss from [facility] is around 5-6 liters per day. PLAN FOR INPATIENT GLYCEMIC CONTROL: * Starting IV insulin infusion per severe (moderate/severe) stress protocol * Goal Range 200 - 300 mg/dl * In the critical care setting, continuous IV insulin infusion has been shown to be the best method for achieving glycemic targets. * Holding outpatient oral diabetes medications * Please note that the plan above was derived based on current level of insulin resistance and hospital stress. These recommendations are appropriate for inpatient admission only. Plan of care upon discharge will need to be reassessed to avoid potential outpatient hypo/hyperglycemia. Thank you.
[2017-08-24] MEDS ORDERED: INSULIN HUMAN REGULAR BOLUS IV SCH (15:00)
[2017-08-24] MEDS: PENDING D5NS+20mEq KCL IVF SCH ×4 (15:00→21:00)
[2017-08-24] MEDS: PENDING NSS+20mEq KCL IVF SCH ×4 (15:00→21:00)
[2017-08-24 15:03] LABS: BETA-HYDROXYBUTYRATE 19.26 mg/dL (0.2-2.81)
[2017-08-24] MEDS: INSULIN REGULAR 250 UNITS in SODIUM CHLORIDE 0.9% 250ML 250 ML IV SCH ×2 (15:09→19:57)
[2017-08-24] MEDS ORDERED: XRL15 PO (16:01)
[2017-08-24] MEDS ORDERED: NRN800 PO (16:01)
[2017-08-24] MEDS ORDERED: [UNRECOGNIZED DRUG - CODE] PO (16:01)
[2017-08-24] MEDS ORDERED: VALA1TAB31 PO (16:01)
[2017-08-24] MEDS ORDERED: SUMA100T15 PO (16:01)
--- NOTE | 2017-08-24 16:03 | History and Physical ---
History & Physical Date & Time of Service: Aug 24, 2017 at 14:50 Chief Complaint: Fell, Acting Not Right, Head Back Foot Primary Care Physician: Dashawn Fuentes M.D.(RUPINDER) History of Present Illness Source: patient, parent (mother), clinic records, hospital records Pt is 42 y/o M with PMH chronic back pain, substance abuse - on methadone, HTN, dyslipidemia, obesity, Factor V Leiden with hx DVT, on xarelto, migraine, GERD presented to ED with mother with c/o altered mental status x couple of days. Mother states pt fell on 08/20/17 and she reports that he fell backwards hitting wall hitting his head and back. Mother states since has noticed pt seems confused, is more drowsy, decreased appetite and has been c/o being dizzy. Pt very drowsy in ER and noted desaturations, and initially mother gives hx. Pt was given additional dose of narcan and arouses and gives additional history. Pt reports feeling dizzy past couple of days. He is unsure if had any LOC with the fall or after. C/O nausea and intermittent vomiting past couple of days. Pt goes to methadone clinic, denies using any other drugs. Admits drank 4 beers "the other day", but states usually doesn't drink. Pt reports was told he is diabetic. Was on metformin 500mg 1 tab daily and on 07/29/17 it was increased to 2 tabs daily. Pt reports doesn't do home glucose monitoring. No A1C noted in epic records. last glucose was 257 on 09/17/15 hospital records. Pt denies polydipsia, polyuria. Reports hx migraines but denies any increased SALEH 's. Pt admits to being non-compliant with his medications. Reports trying to loose weight, but he is unsure if he has lost any weight. Denies any known fever , chills, diaphoresis, diarrhea, constipation, vision changes, CP, SOB, orthopnea, palpitations, cough, sore throat, choking, otalgia, rhinorrhea, abdominal pain, paresthesias, weakness, extremity edema, rashes, dysuria, hematuria. In ER pt afebrile, desats to 86% on RA, 90% on 4L NC. ER staff reports pt somnolent and arouses after narcan multiple doses. WBC: 13 Glucose: 1152, beta hydroxybutyric acid: 19, hgbA1c: 16.8, BUN: 39, CR: 2.1, urine: trace ketones, urine tox: +methadone. CXR: bibasilar atelectasis, negative head CT, negative CT chest for PE. EK sinus tachy with prolonged QT: 497 Past Medical/Surgical History Medical Problems: (1) Altered mental status Status: Resolved (2) Cellulitis of forearm, left Status: Resolved (3) Chest pain Status: Resolved (4) Chronic back pain Status: Chronic (5) Chronic deep venous thrombosis Status: Chronic (6) Chronic dental pain Status: Chronic (7) CHRONIC PAIN SYNDROME Status: Chronic (8) Degeneration of lumbar intervertebral disc Status: Resolved (9) Depression Status: Chronic (10) Discitis Status: Chronic (11) Dyslipidemia Status: Chronic (12) Epistaxis Status: Resolved (13) Factor V Leiden mutation Status: Chronic (14) Foot fracture, right Status: Resolved (15) GERD (gastroesophageal reflux disease) Status: Chronic (16) HTN (hypertension) Status: Chronic (17) Migraine Status: Chronic (18) Multiple injuries 2007 Permanent Comment: slipped on floor 2007 injured back, left hip, left knee Status: Resolved (19) Narcotic withdrawal Status: Resolved (20) Noncompliance with medication regimen Status: Resolved (21) Osteomyelitis of thoracic spine Status: Resolved (22) Pneumonia Status: Resolved (23) Pulmonary embolism Status: Resolved (24) Recurrent DVT Status: Chronic (25) Respiratory failure Status: Resolved (26) Stasis dermatitis, acute Status: Resolved (27) Superficial phlebitis of arm Status: Resolved (28) TOBACCO USE DISORDER Status: Chronic Surgical Problems: (1) s/p left hip arthroscopy Status: Resolved (2) s/p left knee ACL repair Status: Resolved Family History Depression BROTHER FHx: diabetes BROTHER Social History Smoking Status: Current Every Day Smoker (0.25ppd x 10 years) Smokeless Tobacco Use: No Alcohol Use: occasionally Drug Use: other (hx substance abuse. currently on methadone) Marital Status: single Housing status: lives with family Occupational Status: student Immunizations History of Influenza Vaccine: N/A History of Tetanus Vaccine?: No History of Pneumococcal: No History of Hepatitis B Vaccine: No Multi-Drug Resistant Organisms History of MDRO: No Allergies Coded Allergies: Amoxicillin (Verified Allergy, Severe, Hives, swelling of tongue and throat., 08/24/17) Reported by PT. Clindamycin (Verified Allergy, Severe, lip swelling, rash, 08/24/17) Penicillins (Verified Allergy, Severe, Hives, swelling of tongue and throat., 08/24/17) Reported by PT. Aspirin (Verified Allergy, Intermediate, GI SYMPTOMS, 08/24/17) Duloxetine (Verified Allergy, Intermediate, DELIRIUM, 08/24/17) NSAIDs (Verified Adverse Reaction, Severe, SUICIDAL/HOMICIDAL, 08/24/17) Tramadol (Verified Adverse Reaction, Severe, SUICIDAL/HOMICIDAL, 08/24/17) Acetaminophen (Verified Adverse Reaction, Mild, Abdominal cramping and diarrhea., 08/24/17) Reported by PT. Azithromycin (Verified Adverse Reaction, Mild, abd pain cramps, 08/24/17) Ketorolac Tromethamine (Verified Adverse Reaction, Mild, GI SYMPTOMS, ) Home Medications Scheduled Bupropion HCl (Bupropion HCl Sr), 150 MG PO DAILY Docusate Sodium (Ra Col-Rite), 100 MG PO BID Gabapentin (Gabapentin), 800 MG PO QID Insulin Aspart (Novolog Flexpen), 0 INJ ACHS Insulin Glargine (Basaglar Kwikpen), 40 UNITS INJ BID Lisinopril (Lisinopril), 5 MG PO DAILY Metformin Hcl Er (Glucophage Er), 1,000 MG PO BID Methadone HCl (Methadose), 111 MG PO DAILY Omeprazole (Prilosec), 40 MG PO DAILY Rivaroxaban (Xarelto), 1 TAB PO DAILY Simvastatin (Simvastatin), 20 MG PO HS Sumatriptan Succinate (Imitrex), 1 TAB PO UD Valacyclovir Hcl (Valtrex), 2 TAB PO UD Review of Systems Constitutional: + problem reported (see HPI) Eyes: No worsening of vision, No eye pain, No redness, No discharge, No diplopia ENT: No unusual epistaxis, No nasal symptoms, No sore throat, No tinnitus, No trouble swallowing Respiratory: No cough, No sputum, No wheezing, No shortness of breath, No hemoptysis Cardiovascular: No chest pain, No orthopnea, No PND, No palpitations Abdomen: + problem reported (see HPI), No GI bleeding Musculoskeletal: + problem reported (chronic back pain) Genitourinary - Male: No hematuria, No dysuria, No urinary frequency, No urinary urgency, No urinary hesitancy, No urinary retention, No urinary incontinence Neurologic: + problem reported (see HPI) Psychiatric: + depression symptoms (hx depression - on wellbutrin) Endocrine: + problem reported (see HPI) Hematologic / Lymphatic: + problem reported (hx factor V leiden ), No abnormal bleeding/bruising, No night sweats Integumentary: + color change (hx discolored bilateral lower extremities, denies worsening) Physical Exam Vital Signs Date Time Temp Pulse Resp B/P (MAP) Pulse Ox O2 Delivery O2 Flow Rate FiO2 08/24/17 14:13 97 08/24/17 14:02 98 23 149/96 95 Room Air 08/24/17 13:10 98 130/96 90 Nasal Cannula 4.0 08/24/17 12:35 96 149/83 93 Room Air 08/24/17 11:29 104 08/24/17 11:27 102 156/115 90 Nasal Cannula 4.0 08/24/17 11:16 91 Nasal Cannula 4.0 08/24/17 11:16 91 Nasal Cannula 4.0 08/24/17 10:54 36.7 108 18 153/91 86 Room Air General Appearance: + obese, + pertinent finding (pt somnolent, does arouse after narcan given and able to answer questions, however starts talking on tangent) Head: normocephalic, atraumatic Eyes: normal inspection, PERRL, EOMI, sclerae normal ENT: hearing grossly normal, pharynx normal, + pertinent finding (+dry mucous membranes) Neck: supple, no JVD, no carotid bruits Respiratory/Chest: chest non-tender, lungs clear, normal breath sounds, no respiratory distress, no accessory muscle use Cardiovascular: no murmur, + tachycardia (100-106) Abdomen/GI: normal bowel sounds, non tender, soft Extremities/Musculoskelatal: no calf tenderness, normal capillary refill, non- tender, + pedal edema (mild bilaterally), + pertinent finding (venous stasis changes bilateral lower legs) Neurologic/Psych: + pertinent finding (drowsy, falling alseep. after narcan given during exam pt alert oriented to person, place and time. pedal pushes intact, no facial drooping, strength equal bilateral upper and lower extremities , sensation to light touch intact. ) Skin: warm/dry Diagnostics Laboratory Results Last 24 Hours Test 08/24/17 11:30 08/24/17 11:55 08/24/17 13:54 08/24/17 14:06 White Blood Count 13.21 K/uL Red Blood Count 6.08 M/uL Hemoglobin 19.2 g/dL Hematocrit 60.0 % Mean Corpuscular Volume 98.7 fL Mean Corpuscular Hemoglobin 31.6 pg Mean Corpuscular Hemoglobin Concent 32.0 g/dl Platelet Count 191 K/uL Mean Platelet Volume 12.9 fL Neutrophils (%) (Auto) 70.1 % Lymphocytes (%) (Auto) 19.8 % Monocytes (%) (Auto) 9.4 % Eosinophils (%) (Auto) 0.2 % Basophils (%) (Auto) 0.2 % Neutrophils # (Auto) 9.28 K/uL Lymphocytes # (Auto) 2.61 K/uL Monocytes # (Auto) 1.24 K/uL Eosinophils # (Auto) 0.02 K/uL Basophils # (Auto) 0.02 K/uL RDW Standard Deviation 49.8 fL RDW Coefficient of Variation 13.7 % Immature Granulocyte % (Auto) 0.3 % Immature Granulocyte # (Auto) 0.04 K/uL Sodium Level 138 mmol/L 144 mmol/L Potassium Level mmol/L 5.1 mmol/L Chloride Level 96 mmol/L 100 mmol/L Carbon Dioxide Level mmol/L 34 mmol/L Anion Gap mmol/L 10.0 mmol/L Blood Urea Nitrogen 39 mg/dl 39 mg/dl Creatinine 2.13 mg/dl 1.70 mg/dl Est Creatinine Clear Calc Drug Dose 66.1 ml/min 82.8 ml/min Estimated GFR () 42.3 55.6 Estimated GFR (Non- 36.5 48.0 BUN/Creatinine Ratio 18.5 23.1 Random Glucose 1152 mg/dl 909 mg/dl Estimated Average Glucose 435 mg/dl Hemoglobin A1c 16.8 % Calcium Level 9.9 mg/dl 10.1 mg/dl Total Bilirubin 0.8 mg/dl Aspartate Amino Transf (AST/SGOT) U/L Alanine Aminotransferase (ALT/SGPT) 265 U/L Alkaline Phosphatase 145 U/L Total Protein 9.2 gm/dl Albumin 3.9 gm/dl Globulin 5.3 gm/dl Albumin/Globulin Ratio 0.7 Beta-Hydroxybutyric Acid mg/dL 19.26 mg/dL Urine Color YELLOW Urine Appearance CLEAR Urine pH 5.0 Urine Specific [place] 1.042 Urine Protein NEG Urine Glucose (UA) 3+ Urine Ketones TRACE Urine Occult Blood NEG Urine Nitrite NEG Urine Bilirubin NEG Urine Urobilinogen NEG Urine Leukocyte Esterase NEG Urine Opiates Screen NEG Urine Methadone, Qualitative POS Urine Barbiturates NEG Urine Phencyclidine (PCP) Level NEG Ur Amphetamine/Methamphetamine NEG MDMA (Ecstasy) Screen NEG Urine Benzodiazepines Screen NEG Urine Cocaine Metabolite NEG Urine Marijuana (THC) NEG Prothrombin Time 11.1 SECONDS Prothromb Time International Ratio 1.0 Activated Partial Thromboplast Time 20.6 SECONDS Partial Thromboplastin Ratio 0.8 Phosphorus Level 7.1 mg/dl Magnesium Level 3.2 mg/dl Total Creatine Kinase 268 U/L Creatine Kinase MB 2.2 ng/ml Creatine Kinase MB Ratio 0.8 Troponin I < 0.015 ng/ml Test 08/24/17 14:25 08/24/17 14:39 08/24/17 14:40 Arterial Blood pH 7.35 Arterial Blood Partial Pressure CO2 64 mmHg Arterial Blood Partial Pressure O2 64 mm/Hg Arterial Blood HCO3 35 mmol/L Arterial Blood Oxygen Saturation 90.3 % Arterial Blood Base Excess 6.1 mEq/L Arterial Blood Gas Delivery 4L Salazar Test POS Diagnostic Radiology Head CT: IMPRESSION: No acute intracranial findings CXR: IMPRESSION: Minimal basilar atelectasis. Otherwise negative study. CT CHEST: IMPRESSION: 1. Study is negative for pulmonary embolus. 2. Lungs are clear. 3. Mild peribronchial thickening bilaterally. 4. Fatty infiltration of liver EKG EKG: sinus tachy, rate 102, QT: 497 EKG read by cardiology: 24-AUG-2017 11:48:10 [facility] Sinus tachycardia Otherwise normal ECG When compared with ECG of 08-OCT-2014 13:24, QT has lengthened Confirmed by GIOVANNA FRANCO ([id number]) on 08/24/2017 3:10:41 PM Impression Assessment and Plan DKA Pt presents with dehydration and hyperglycemia. Pt with reported hx diabetes on metformin 500mg once daily and was increased to 1000mg daily 2 weeks ago. Today Glucose: 1152. HgbA1C: 16.8. beta-hydroxybutyric acid: 19, trace ketones in urine Following DKA protocol. generous amount of fluids pharmacy glycemic consult serial prp to monitor electrolytes repeat phosphorus and magnesium labs npo until acidosis resolved vbgs Further management per ICU SOMNOLENCE/HYPOXIA metabolic encephalopathy, substance abuse. Urine tox +methadone. Pending ETOH level. Pt becomes more aroused after narcan -O2 per protocol -continue to monitor -per ICU recommendations LEUKOCYTOSIS at this time CXR no infiltrates, U/A benign for infection. No signs of infectious etiology at this time. probable secondary to dehydration, DKA -add blood culture and urine culture -pending lactic acid -pending procalcitonin -repeat CBC in am BROOKS BUN: 39, CR: 2.1, GFR: 36.5. probable secondary to dehydration, DKA -avoid contrast, nephrotoxic agents -nephro consult HTN stable at this time -continue to monitor -hold lisinopril PROLONGED QT -QTc: 497 -repeat EKG daily -avoid meds that prolong QT FACTOR V LEIDEN CT negative for PE. Ordered U/S LE. pt rx xarelto but admits med non-compliance -hold xarelto -Heparin SQ CHRONIC BACK PAIN -hold gabapentin DEPRESSION -hold wellbutrin SUBSTANCE ABUSE Pt on methadone. Urine tox positive for methadone only. Pending ETOH level. Pt responded with increased arousal after multiple doses narcan in ER -continue to monitor -neuro checks -hold methadone GERD -protonix DVT PROPHYLAXIS -Heparin SQ DISPOSITION -admit ICE -Full Code as per discussion with pt -Follows with Dr Fuentes for routine care Pt was seen with Dr Nagel. See addendum ATTENDING ADDENDUM : pt seen and examined , in agreement with H&P above 42 yo -poorly compliant with med hx of Type 2 DM , Factor v Leiden with hx of DVT on Xarelto, poly substance abuse on Methadone brought to ED by family for altered mental status pt woke up after giving multiple dose of Narcan lab shows : BSG> 1100, BROOKS , non gap acidosis -HHS pt will be admitted to ICU , started on IV insulin infusion , HB A1c > 16 -showing non compliance given IV fluid bolus 2 L in ER ordered for 1more liter of NSS followed by IVF @ 200 ml /hr BSG monitoring Q1 hr while on IV insulin gtt BROOKS with Cr > 2 -due to HHS cont IVF , nephrology eval requested case D/w on [employer] director , in agreement with ICU admission please refer to Documentation by Pito CALVERT for further discussion of other issues Kelsie Nagel MD Level of Care Critical Care Resuscitation Status FULL RESUSCITATION VTE Prophylaxis VTE Risk Assessment Done? Y/N: Yes Risk Level: High Additional Copies To Dashawn Fuentes M.D.(HUGH)
--- NOTE | 2017-08-24 16:06 | Critical Care Consultation ---
Critical Care Consultation Date of Consultation: Aug 24, 2017. Attending Physician: Reason for Consultation: Hyperosmolar Non-ketotic state New onset Type II Diabetes History of Present Illness This is a 42 yo M with h/o substance abuse currently on methadone, HTN, Obesity , Dyslipidemia, Factor V Leiden w/ Hx of multiple DVT's on Xarelto, GERD, presenting with Acute confusion and Fall with Head injury to back of his head. Much of the history is through chart review because patient is a poor historian. Prior to arrival by a few days, patient reportedly exhibited increasing confusion, lethargy. In the ED , the patient was found to be hypoxic. He was given Narcan and awakened immediately. Lab work showed Glucose of 1152 and patient was placed on an insulin drip. CT head was unremarkable. ABG showed pH of 7.35 HCo3 35 pCO2 64. Potassium of 5.2 was found. Patient was given 2L IV NS. Past Medical/Surgical History (1) Altered mental status Status: Resolved (2) Cellulitis of forearm, left Status: Resolved (3) Chest pain Status: Resolved (4) Chronic back pain Status: Chronic (5) Chronic deep venous thrombosis Status: Chronic (6) Chronic dental pain Status: Chronic (7) CHRONIC PAIN SYNDROME Status: Chronic (8) Degeneration of lumbar intervertebral disc Status: Resolved (9) Depression Status: Chronic (10) Discitis Status: Chronic (11) Dyslipidemia Status: Chronic (12) Epistaxis Status: Resolved (13) Factor V Leiden mutation Status: Chronic (14) Foot fracture, right Status: Resolved (15) GERD (gastroesophageal reflux disease) Status: Chronic (16) HTN (hypertension) Status: Chronic (17) Migraine Status: Chronic (18) Multiple injuries 2007 Permanent Comment: slipped on floor 2007 injured back, left hip, left knee Status: Resolved (19) Narcotic withdrawal Status: Resolved (20) Noncompliance with medication regimen Status: Resolved (21) Osteomyelitis of thoracic spine Status: Resolved (22) Pneumonia Status: Resolved (23) Pulmonary embolism Status: Resolved (24) Recurrent DVT Status: Chronic (25) Respiratory failure Status: Resolved (26) Stasis dermatitis, acute Status: Resolved (27) Superficial phlebitis of arm Status: Resolved (28) TOBACCO USE DISORDER Status: Chronic Surgical Problems: (1) s/p left hip arthroscopy Status: Resolved (2) s/p left knee ACL repair Status: Resolved Family History Depression BROTHER FHx: diabetes BROTHER Social History Smoking Status: Current Every Day Smoker (0.25ppd x 10 years) Smokeless Tobacco Use: No Alcohol Use: occasionally Drug Use: other (hx substance abuse. currently on methadone) Marital Status: single Housing Status: lives with family Occupation Status: student Allergies Coded Allergies: Amoxicillin (Verified Allergy, Severe, Hives, swelling of tongue and throat., 08/24/17) Reported by PT. Clindamycin (Verified Allergy, Severe, lip swelling, rash, 08/24/17) Penicillins (Verified Allergy, Severe, Hives, swelling of tongue and throat., 08/24/17) Reported by PT. Aspirin (Verified Allergy, Intermediate, GI SYMPTOMS, 08/24/17) Duloxetine (Verified Allergy, Intermediate, DELIRIUM, 08/24/17) NSAIDs (Verified Adverse Reaction, Severe, SUICIDAL/HOMICIDAL, 08/24/17) Tramadol (Verified Adverse Reaction, Severe, SUICIDAL/HOMICIDAL, 08/24/17) Acetaminophen (Verified Adverse Reaction, Mild, Abdominal cramping and diarrhea., 08/24/17) Reported by PT. Azithromycin (Verified Adverse Reaction, Mild, abd pain cramps, 08/24/17) Ketorolac Tromethamine (Verified Adverse Reaction, Mild, GI SYMPTOMS, ) Home Medications Scheduled Bupropion HCl (Bupropion HCl Sr), 150 MG PO DAILY Docusate Sodium (Ra Col-Rite), 100 MG PO BID Gabapentin (Gabapentin), 1 TAB PO QID Lisinopril (Lisinopril), 5 MG PO DAILY Metformin Hcl Er (Glucophage Er), 1,000 MG PO DAILY Methadone HCl (Methadose), 111 MG PO DAILY Omeprazole (Prilosec), 40 MG PO DAILY Rivaroxaban (Xarelto), 1 TAB PO DAILY Simvastatin (Simvastatin), 20 MG PO HS Sumatriptan Succinate (Imitrex), 1 TAB PO UD Valacyclovir Hcl (Valtrex), 2 TAB PO UD Current Inpatient Medications Current Inpatient Medications Medications (Trade) Dose Ordered Sig/Ehsan Route Start Time Stop Time Status Last Admin Dose Admin Ioversol (Optiray 320) 100 ml UD PRN IV 08/24/17 12:45 08/28/17 12:44 Insulin Aspart (novoLOG ASPART) SLIDING SCALE PCHS SC 08/24/17 19:00 09/23/17 18:59 UNV Sodium Chloride 1,000 ml @ 999 mls/hr Q1H1M ONCE IV 08/24/17 14:09 08/24/17 15:09 UNV Sodium Chloride 1,000 ml @ 200 mls/hr Q5H IV 08/24/17 14:09 09/23/17 14:08 UNV Miscellaneous Information (PENDING NSS+20mEq KCL IVF) 1 ea Q2H N/A 08/24/17 15:00 09/23/17 14:59 Miscellaneous Information (PENDING D5NS+20mEq KCL IVF) 1 ea Q2H N/A 08/24/17 15:00 09/23/17 14:59 Miscellaneous Information (Consult Glycemic Management Pharmacy) 1 ea UD PRN N/A 08/24/17 14:15 09/23/17 14:14 Non-Formulary Medication (Omeprazole (Prilosec)) 40 mg DAILY PO 08/25/17 09:00 09/24/17 08:59 UNV Insulin Human Regular 250 units/ Sodium Chloride 252.5 ml @ 0 mls/hr Q24H IV 08/24/17 15:00 08/24/17 23:59 08/24/17 15:09 5.4 MLS/HR Insulin Aspart (novoLOG ASPART) SLIDING SCALE [facility] 08/24/17 19:00 09/23/17 18:59 Glucose (Glucose 40% Gel) UD PRN PO 08/24/17 14:45 09/23/17 14:44 Glucose (Glucose Chew Tab) 1 tabs UD PRN PO 08/24/17 14:45 09/23/17 14:44 Dextrose (Dextrose 50% 50ML Syringe) 50 ml UD PRN IV 08/24/17 14:45 09/23/17 14:44 Glucagon (Glucagon Inj) 1 mg UD PRN SQ 08/24/17 14:45 09/23/17 14:44 Heparin Sodium (Porcine) (Heparin Sq 5000 Unit/0.5ml) 5,000 unit Q8H SQ 08/24/17 14:45 09/23/17 14:44 UNV Acetaminophen (Tylenol Tab) 650 mg Q4H PRN PO 08/24/17 14:45 09/23/17 14:44 UNV Pantoprazole Sodium 40 mg/ Syringe 10 ml @ 5 mls/min DAILY IV 08/25/17 09:00 09/24/17 08:59 UNV Review of Systems Constitutional: No fever, No chills Respiratory: No cough, No shortness of breath Cardiovascular: No chest pain, No edema, No palpitations Abdomen: + nausea, + vomiting, No pain, No diarrhea Genitourinary - Male: No hematuria, No dysuria Neurologic: + weakness, No numbness/tingling Endocrine: + fatigue Integumentary: No rash, No itch Physical Exam Date Time Temp Pulse Resp B/P (MAP) Pulse Ox O2 Delivery O2 Flow Rate FiO2 08/24/17 16:02 101 157/107 94 08/24/17 14:13 97 08/24/17 14:02 98 23 149/96 95 Nasal Cannula 4.0 08/24/17 13:10 98 130/96 90 Nasal Cannula 4.0 08/24/17 12:35 96 149/83 93 Room Air 08/24/17 11:29 104 08/24/17 11:27 102 156/115 90 Nasal Cannula 4.0 08/24/17 11:16 91 Nasal Cannula 4.0 08/24/17 11:16 91 Nasal Cannula 4.0 08/24/17 10:54 36.7 108 18 153/91 86 Room Air GENERAL: alert, awake EYE EXAM: PERRL and EOM's grossly intact NECK: supple, no nuchal rigidity, no adenopathy, LUNGS: Clear to auscultation. Normal chest wall mechanics HEART: no murmurs, S1 normal and S2 normal ABDOMEN: abdomen soft, non-tender, normo-active bowel sounds, no masses, no rebound or guarding. SKIN: no rashes and no bruising LOWER EXTREMITIES: No pitting edema. NEURO EXAM: Normal sensorium, cranial nerves II-XII grossly intact Laboratory Results Last 24 Hours Test 08/24/17 11:30 08/24/17 11:55 08/24/17 13:54 08/24/17 14:06 White Blood Count 13.21 K/uL Red Blood Count 6.08 M/uL Hemoglobin 19.2 g/dL Hematocrit 60.0 % Mean Corpuscular Volume 98.7 fL Mean Corpuscular Hemoglobin 31.6 pg Mean Corpuscular Hemoglobin Concent 32.0 g/dl Platelet Count 191 K/uL Mean Platelet Volume 12.9 fL Neutrophils (%) (Auto) 70.1 % Lymphocytes (%) (Auto) 19.8 % Monocytes (%) (Auto) 9.4 % Eosinophils (%) (Auto) 0.2 % Basophils (%) (Auto) 0.2 % Neutrophils # (Auto) 9.28 K/uL Lymphocytes # (Auto) 2.61 K/uL Monocytes # (Auto) 1.24 K/uL Eosinophils # (Auto) 0.02 K/uL Basophils # (Auto) 0.02 K/uL RDW Standard Deviation 49.8 fL RDW Coefficient of Variation 13.7 % Immature Granulocyte % (Auto) 0.3 % Immature Granulocyte # (Auto) 0.04 K/uL Sodium Level 138 mmol/L 144 mmol/L Potassium Level mmol/L 5.1 mmol/L Chloride Level 96 mmol/L 100 mmol/L Carbon Dioxide Level mmol/L 34 mmol/L Anion Gap mmol/L 10.0 mmol/L Blood Urea Nitrogen 39 mg/dl 39 mg/dl Creatinine 2.13 mg/dl 1.70 mg/dl Est Creatinine Clear Calc Drug Dose 66.1 ml/min 82.8 ml/min Estimated GFR () 42.3 55.6 Estimated GFR (Non- 36.5 48.0 BUN/Creatinine Ratio 18.5 23.1 Random Glucose 1152 mg/dl 909 mg/dl Estimated Average Glucose 435 mg/dl Hemoglobin A1c 16.8 % Calcium Level 9.9 mg/dl 10.1 mg/dl Total Bilirubin 0.8 mg/dl Aspartate Amino Transf (AST/SGOT) U/L Alanine Aminotransferase (ALT/SGPT) 265 U/L Alkaline Phosphatase 145 U/L Total Protein 9.2 gm/dl Albumin 3.9 gm/dl Globulin 5.3 gm/dl Albumin/Globulin Ratio 0.7 Beta-Hydroxybutyric Acid mg/dL 19.26 mg/dL Urine Color YELLOW Urine Appearance CLEAR Urine pH 5.0 Urine Specific Hughson 1.042 Urine Protein NEG Urine Glucose (UA) 3+ Urine Ketones TRACE Urine Occult Blood NEG Urine Nitrite NEG Urine Bilirubin NEG Urine Urobilinogen NEG Urine Leukocyte Esterase NEG Urine Opiates Screen NEG Urine Methadone, Qualitative POS Urine Barbiturates NEG Urine Phencyclidine (PCP) Level NEG Ur Amphetamine/Methamphetamine NEG MDMA (Ecstasy) Screen NEG Urine Benzodiazepines Screen NEG Urine Cocaine Metabolite NEG Urine Marijuana (THC) NEG Prothrombin Time 11.1 SECONDS Prothromb Time International Ratio 1.0 Activated Partial Thromboplast Time 20.6 SECONDS Partial Thromboplastin Ratio 0.8 Phosphorus Level 7.1 mg/dl Magnesium Level 3.2 mg/dl Total Creatine Kinase 268 U/L Creatine Kinase MB 2.2 ng/ml Creatine Kinase MB Ratio 0.8 Troponin I < 0.015 ng/ml Test 08/24/17 14:25 08/24/17 14:39 08/24/17 14:40 08/24/17 15:38 Arterial Blood pH 7.35 Arterial Blood Partial Pressure CO2 64 mmHg Arterial Blood Partial Pressure O2 64 mm/Hg Arterial Blood HCO3 35 mmol/L Arterial Blood Oxygen Saturation 90.3 % Arterial Blood Base Excess 6.1 mEq/L Arterial Blood Gas Delivery 4L Salazar Test POS Test 08/24/17 16:00 Diagnostic Results ULTRASOUND BILATERAL LOWER EXTREMITY VENOUS CLINICAL HISTORY: Fall. Leg pain. Factor V Leiden deficiency. COMPARISON STUDY: Bilateral lower extremity venous ultrasound dated 11/29/2013. TECHNIQUE: Real-time, grayscale, and color Doppler sonography of the deep veins of the right and left lower extremity was performed from the inguinal crease to the calf. Compression and augmentation were utilized. FINDINGS: There is no sonographic evidence of deep venous thrombosis identified in the right or left lower extremity. The common femoral, superficial femoral, and popliteal veins are patent and normally compressible bilaterally. The greater saphenous vein and the profunda femoris vein at the junction with the common femoral vein are clear in both legs. The visualized calf veins are patent bilaterally. IMPRESSION: There is no sonographic evidence of deep venous thrombosis identified in the right or left lower extremity. (CHEST FOR PE) ANGIO WITH CT DOSE: 736.89 mGy.cm HISTORY: Chest pain dyspnea TECHNIQUE: Multiaxial CT images of the chest were performed following the intravenous administration of contrast to evaluate the pulmonary arteries. Maximal intensity projection images were also obtained. A dose lowering technique was utilized adhering to the principles of ALARA. COMPARISON STUDY: 10/08/2014 FINDINGS: There is a normal caliber thoracic aorta with no evidence for dissection. There is no evidence for pulmonary embolus. No pleural effusions. No pneumothorax. The liver and spleen are unremarkable. No mediastinal or hilar lymphadenopathy. The central airways are patent. The lungs are clear. Mild peribronchial thickening throughout both hemithoraces. Fatty infiltration of liver. IMPRESSION: 1. Study is negative for pulmonary embolus. 2. Lungs are clear. 3. Mild peribronchial thickening bilaterally. 4. Fatty infiltration of liver CHEST ONE VIEW PORTABLE CLINICAL HISTORY: Pt c/o hypoxia dyspnea COMPARISON STUDY: 10/08/2014 FINDINGS: Minimal bibasilar plaque atelectasis IMPRESSION: Minimal basilar atelectasis. Otherwise negative study. ] CT HEAD WITHOUT CONTRAST (CT) CLINICAL HISTORY: Trauma. Acute change in mental status. COMPARISON STUDY: 05/28/2014 TECHNIQUE: Axial CT of the brain is performed from the vertex to the skull base. IV contrast was not administered for this examination. A dose lowering technique was utilized adhering to the principles of ALARA. CT DOSE: 614.27 mGy.cm FINDINGS: No intra or extra-axial mass lesions are visualized. There is no CT evidence of acute cortical infarction. There is no evidence of midline shift. There is no acute hemorrhage. No calvarial fractures are visualized. There is no evidence of pathologic ventricular dilatation. 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: H/o of Substance of Abuse, Methadone user, H/O Head injury GCS: 15 Pupils: Pinpoint, reactive, Focal Signs: None Narcan drip ( Titrate down) Plan to restart Methadone CT head dated 08/24/17: Result : no intracranial abnormality Respiratory: Possible Sleep Apnea: Chest X-ray: Reviewed: Will need Sleep study following discharge and f/u with Pulmonology Cardiovascular: stable Rhythm: Sinus EKG: Sinus tachycardia, QTc 497 Echo report 2014: LV wall Normal, EF 60-65%, Grossly normal valves, Valves not well visualized Fluids/Renal: BROOKS , Hyperkalemia, BROOKS: likely Prerenal, Cr trending down with IV fluids Hyperkalemia: decreased with Insulin infusion, Start PO supplementation IV Fluids: Fluids from intravenous medications GI/Nutrition: Feeding: ADA Diet Prophylaxis: Protonix Endocrine: T2DM poorly controlled, [facility] glucose trend: 1152-->909 Insulin protocol: Yes; Drip: Yes Hematology: Factor V Leiden, Hx Of DVT's Factor V Leiden, Hx Of DVT's: restart Xarelto Hemoglobin: 19 DVT prophylaxis: Restarted home Xarelto 15 mg daily Infectious Disease/Immunology: Afebrile Tmax:36.7 Leukocytosis likely stress demargination in setting of HONK Check HepC HIV Resident Physician Supervision Note: Dr. Mckeon was resident physician during care of patient. I separately evaluated patient and did history and exam. I discussed the case with the resident and generally agree with the findings and plan. Patient is critically ill due to waxing and waning mental status in the setting of an acute kidney injury and long-term chronic narcotic, methadone, use, and hyperosmolar nonketotic coma. The patient's mental status waxes and wanes and is likely multifactorial. It improves while on a Narcan drip. I suspect that given the significant acute kidney injury the patient has accumulation of methadone and its metabolites. This is also evidence by the prolonged QTC. He is certainly at risk for compromise respiratory status given his morbid obesity and likely obstructive sleep apnea, there may also be an aspect of obesity hypoventilation syndrome. His bicarbonate is elevated which could very well be compensation for chronic respiratory acidosis. He does smoke but I would doubt that he has true COPD physiology and is more likely related to obesity and sleep apnea. The patient is also at risk for DVT and PE, I have reviewed the imaging obtained in the emergency department. We will continue Xarelto at this time. The patient has a significant free water deficit. The patient's initial sodium was reported at 138 however correcting for the extreme hyperglycemia would place it on 163 mEq. I believe the patient could be at risk for central pontine myelinolysis given such a profound hyperosmolar hyperglycemic state. I have personally spent 70 minutes of critical care time in the direct management of this patient. This is a life/limb threatening event. This includes time spent evaluating patient, direct bedside care, chart review, placing orders, interpretation of diagnostic studies, discussion with consultants, patient, and family members, as well as other required patient management activities. This time is exclusive of all separately billable procedures, and teaching time and separate from and in addition to any other critical care service time. Documented By: Jorge Schroeder DO Resident Tracking Resident Involvement: Resident Care Provided Care Provided: [facility]
[2017-08-24] MEDS ORDERED: INSULIN GLARGINE SOLOSTAR 100 UNITS/ML 3 ML PEN SC ONE (16:15)
[2017-08-24] MEDS: SODIUM CHLORIDE 0.9% 1000ML 1,000 ML IV SCH ×2 (16:30→21:30)
[2017-08-24] MEDS ORDERED: SODIUM CHLORIDE 0.9% 1000ML 1,000 ML IV ONE (16:30)
[2017-08-24 16:40] LABS: THYROID STIMULATING HORMONE 0.096 uIu/ml (0.300-4.500)
[2017-08-24] MEDS ORDERED: LANTUS PER UNIT CHARGE SQ ONE (16:45)
[2017-08-24] MEDS: NALOXONE HCL INJ 5 MG in SODIUM CHLORIDE 0.9% 100ML 100 ML IV SCH (16:45)
[2017-08-24] MEDS ORDERED: INSULIN ASPART 100 UNITS/ML 3 ML PEN SC SCH (17:15)
[2017-08-24] MEDS: INSULIN ASPART 100 UNITS/ML 3 ML PEN SC SCH ×2 (17:15→21:00)
--- NOTE | 2017-08-24 17:28 | DIAGNOSTIC IMAGING REPORT ---
ULTRASOUND BILATERAL LOWER EXTREMITY VENOUS CLINICAL HISTORY: Fall. Leg pain. Factor V Leiden deficiency. COMPARISON STUDY: Bilateral lower extremity venous ultrasound dated 11/29/2013. TECHNIQUE: Real-time, grayscale, and color Doppler sonography of the deep veins of the right and left lower extremity was performed from the inguinal crease to the calf. Compression and augmentation were utilized. FINDINGS: There is no sonographic evidence of deep venous thrombosis identified in the right or left lower extremity. The common femoral, superficial femoral, and popliteal veins are patent and normally compressible bilaterally. The greater saphenous vein and the profunda femoris vein at the junction with the common femoral vein are clear in both legs. The visualized calf veins are patent bilaterally. IMPRESSION: There is no sonographic evidence of deep venous thrombosis identified in the right or left lower extremity. Electronically signed by: Luis Richter M.D. 08/24/2017 5:27 PM Dictated Date/Time: 08/24/2017 5:26 PM
[2017-08-24 18:37] LABS: BUN/CREATININE RATIO 22.4 (10-20); CALCIUM 9.7 mg/dl (8.5-10.1); CREATININE 1.47 mg/dl (0.60-1.40); MAGNESIUM 2.9 mg/dl (1.8-2.4); PHOSPHORUS 4.9 mg/dl (2.5-4.9); POTASSIUM 3.8 mmol/L (3.5-5.1)
[2017-08-24 18:54] LABS: BETA-HYDROXYBUTYRATE 8.84 mg/dL (0.2-2.81)
[2017-08-24] MEDS ORDERED: POTASSIUM CHLORIDE 20 MEQ TABCR PO ONE (19:15)
[2017-08-24] MEDS: NORMOSOL R 1,000 ML IV SCH (21:00)
[2017-08-24 21:11] LABS: ISTAT CARBON DIOXIDE 33 mEq/l (24-31); ISTAT CHLORIDE 101 mEq/L (101-112); ISTAT CREATININE 1.2 mg/dl (0.6-1.3); ISTAT HEMATOCRIT 56 % (42-52); ISTAT IONIZED CALCIUM 1.24 mmol/l (1.12-1.32); ISTAT SODIUM 147 mEq/L (135-144)
[2017-08-24] MEDS: HEPARIN SOD 5000 UNIT/0.5 ML CARP SQ SCH (23:21)
[2017-08-24 23:33] LABS: BLOOD UREA NITROGEN 27 mg/dl (7-18); BUN/CREATININE RATIO 20.8 (10-20); CALCIUM 9.7 mg/dl (8.5-10.1); CARBON DIOXIDE 38 mmol/L (21-32); CHLORIDE 112 mmol/L (98-107); GLUCOSE 346 mg/dl (70-99); MAGNESIUM 2.8 mg/dl (1.8-2.4); POTASSIUM 3.6 mmol/L (3.5-5.1); SODIUM 153 mmol/L (136-145)
[2017-08-24 23:44] LABS: BETA-HYDROXYBUTYRATE 1.66 mg/dL (0.2-2.81); CKMB/CK RATIO 0.5 (0-3.0); PHOSPHORUS 2.8 mg/dl (2.5-4.9)
[2017-08-24] MEDS ORDERED: POTASSIUM CHLORIDE 20 MEQ TABCR PO STA (23:46)
[2017-08-25] VITALS (15 sets, daily range): BP systolic 99–144; BP diastolic 67–96; PULSE 77–96; TEMP 36.5–37; O2SAT 92–94
[2017-08-25] MEDS: NORMOSOL R 1,000 ML IV SCH ×2 (02:15→09:00)
[2017-08-25] MEDS: NALOXONE HCL INJ 5 MG in SODIUM CHLORIDE 0.9% 100ML 100 ML IV SCH (02:16)
[2017-08-25 04:14] LABS: BASO % 0.3 %; BASO ABS # 0.03 K/uL (0-0.2); COMPLETE YES; EOS % 1.8 %; HEMATOCRIT 51.3 % (42-52); IG% 0.3 %; LYMPH ABS # 3.46 K/uL (1.2-3.4); MEAN CELL VOLUME 94.8 fL (80-100); MEAN CORPUSCULAR HEMOGLOBIN 31.1 pg (25-34); MEAN CORPUSCULAR HGB CONC 32.7 g/dl (32-36); MEAN PLATELET VOLUME 11.6 fL (7.4-10.4); MONO % 6.8 %; NEUT % 61.8 %; PLATELET COUNT 152 K/uL (130-400); RED BLOOD COUNT 5.41 M/uL (4.7-6.1); WHITE BLOOD COUNT 11.92 K/uL (4.8-10.8)
[2017-08-25 04:35] LABS: BUN/CREATININE RATIO 22.1 (10-20); CALCIUM 9.2 mg/dl (8.5-10.1); CREATININE 1.18 mg/dl (0.60-1.40); MAGNESIUM 2.6 mg/dl (1.8-2.4); POTASSIUM 3.8 mmol/L (3.5-5.1)
[2017-08-25 04:40] LABS: CKMB/CK RATIO 0.5 (0-3.0); PHOSPHORUS 2.8 mg/dl (2.5-4.9)
[2017-08-25] MEDS ORDERED: NURSING VERBAL MED ORDER ONE (04:45)
[2017-08-25] MEDS ORDERED: POTASSIUM CHLORIDE 20 MEQ TABCR PO ONE (05:00)
[2017-08-25] MEDS: HEPARIN SOD 5000 UNIT/0.5 ML CARP SQ SCH (05:54)
[2017-08-25] MEDS: RIVAROXABAN TAB 15 MG TAB PO SCH (07:59)
[2017-08-25] MEDS: INSULIN ASPART 100 UNITS/ML 3 ML PEN SC SCH ×5 (08:00→21:00)
--- NOTE | 2017-08-25 08:17 | Progress Note ---
Medicine Progress Note Date & Time of Visit: Aug 25, 2017 at 07:45 . Subjective Admitted yesterday with blood sugar of 1152. Received insulin infusion, IV fluids with improvement. No fever. No chest pain. No cough or dyspnea. No nausea or vomiting. No diarrhea. No urinary symptoms. . Objective Last 8 Hrs Date Time Temp Pulse Resp B/P (MAP) Pulse Ox O2 Delivery O2 Flow Rate FiO2 08/25/17 06:01 87 18 140/78 (108) 92 08/25/17 04:24 36.9 96 14 118/84 (97) 93 08/25/17 04:00 93 Nasal Cannula 08/25/17 02:01 90 17 133/86 (98) 94 08/25/17 01:01 90 22 113/90 (102) 92 Physical Exam: General- no distress Eyes- anicteric Neck- slight JVD Lungs- clear Heart- RRR, no murmur or gallop Abdomen- + BS, soft, nontender Extremities- trace pretibial edema, no calf tenderness Neuro- alert Skin- chronic venous stasis changes lower extremities; warm & dry . Laboratory Results: Last 24 Hours Test 08/24/17 11:30 08/24/17 11:55 08/24/17 13:54 08/24/17 13:59 White Blood Count 13.21 K/uL Red Blood Count 6.08 M/uL Hemoglobin 19.2 g/dL Hematocrit 60.0 % Mean Corpuscular Volume 98.7 fL Mean Corpuscular Hemoglobin 31.6 pg Mean Corpuscular Hemoglobin Concent 32.0 g/dl Platelet Count 191 K/uL Mean Platelet Volume 12.9 fL Neutrophils (%) (Auto) 70.1 % Lymphocytes (%) (Auto) 19.8 % Monocytes (%) (Auto) 9.4 % Eosinophils (%) (Auto) 0.2 % Basophils (%) (Auto) 0.2 % Neutrophils # (Auto) 9.28 K/uL Lymphocytes # (Auto) 2.61 K/uL Monocytes # (Auto) 1.24 K/uL Eosinophils # (Auto) 0.02 K/uL Basophils # (Auto) 0.02 K/uL RDW Standard Deviation 49.8 fL RDW Coefficient of Variation 13.7 % Immature Granulocyte % (Auto) 0.3 % Immature Granulocyte # (Auto) 0.04 K/uL Sodium Level 138 mmol/L Potassium Level mmol/L Chloride Level 96 mmol/L Carbon Dioxide Level mmol/L Anion Gap mmol/L Blood Urea Nitrogen 39 mg/dl Creatinine 2.13 mg/dl Est Creatinine Clear Calc Drug Dose 66.1 ml/min Estimated GFR () 42.3 Estimated GFR (Non- 36.5 BUN/Creatinine Ratio 18.5 Random Glucose 1152 mg/dl Estimated Average Glucose 435 mg/dl Hemoglobin A1c 16.8 % Calcium Level 9.9 mg/dl Total Bilirubin 0.8 mg/dl Aspartate Amino Transf (AST/SGOT) U/L Alanine Aminotransferase (ALT/SGPT) 265 U/L Alkaline Phosphatase 145 U/L Total Protein 9.2 gm/dl Albumin 3.9 gm/dl Globulin 5.3 gm/dl Albumin/Globulin Ratio 0.7 Beta-Hydroxybutyric Acid mg/dL Urine Color YELLOW Urine Appearance CLEAR Urine pH 5.0 Urine Specific [place] 1.042 Urine Protein NEG Urine Glucose (UA) 3+ Urine Ketones TRACE Urine Occult Blood NEG Urine Nitrite NEG Urine Bilirubin NEG Urine Urobilinogen NEG Urine Leukocyte Esterase NEG Urine Opiates Screen NEG Urine Methadone, Qualitative POS Urine Barbiturates NEG Urine Phencyclidine (PCP) Level NEG Ur Amphetamine/Methamphetamine NEG MDMA (Ecstasy) Screen NEG Urine Benzodiazepines Screen NEG Urine Cocaine Metabolite NEG Urine Marijuana (THC) NEG Prothrombin Time 11.1 SECONDS Prothromb Time International Ratio 1.0 Activated Partial Thromboplast Time 20.6 SECONDS Partial Thromboplastin Ratio 0.8 Bedside Glucose > 600 mg/dl Test 08/24/17 14:06 08/24/17 14:10 08/24/17 14:25 08/24/17 16:40 Sodium Level 144 mmol/L Potassium Level 5.1 mmol/L Chloride Level 100 mmol/L Carbon Dioxide Level 34 mmol/L Anion Gap 10.0 mmol/L 19.0 mmol/L Blood Urea Nitrogen 39 mg/dl Creatinine 1.70 mg/dl Est Creatinine Clear Calc Drug Dose 82.8 ml/min Estimated GFR () 55.6 Estimated GFR (Non- 48.0 BUN/Creatinine Ratio 23.1 Random Glucose 909 mg/dl Calcium Level 10.1 mg/dl Phosphorus Level 7.1 mg/dl Magnesium Level 3.2 mg/dl Total Creatine Kinase 268 U/L Creatine Kinase MB 2.2 ng/ml Creatine Kinase MB Ratio 0.8 Troponin I < 0.015 ng/ml Lipase 305 U/L Beta-Hydroxybutyric Acid 19.26 mg/dL Thyroid Stimulating Hormone (TSH) 0.096 uIu/ml Bedside Hemoglobin 19.0 g/dl Bedside Hematocrit 56 % Bedside Sodium 147 mEq/L Bedside Potassium 5.2 mEq/L Bedside Chloride 101 mEq/L Bedside Total CO2 33 mEq/l Bedside Blood Urea Nitrogen 38 mg/dl Bedside Creatinine 1.2 mg/dl Bedside Glucose (other) > 700 mg/dl Bedside Ionized Calcium (Michel) 1.24 mmol/l Arterial Blood pH 7.35 Arterial Blood Partial Pressure CO2 64 mmHg Arterial Blood Partial Pressure O2 64 mm/Hg Arterial Blood HCO3 35 mmol/L Arterial Blood Oxygen Saturation 90.3 % Arterial Blood Base Excess 6.1 mEq/L Arterial Blood Gas Delivery 4L Salazar Test POS Lactic Acid Level 1.7 mmol/L Test 08/24/17 17:58 08/24/17 19:49 08/24/17 20:35 08/24/17 21:33 Sodium Level 150 mmol/L Potassium Level 3.8 mmol/L Chloride Level 110 mmol/L Carbon Dioxide Level 33 mmol/L Anion Gap 7.0 mmol/L Blood Urea Nitrogen 33 mg/dl Creatinine 1.47 mg/dl Est Creatinine Clear Calc Drug Dose 95.7 ml/min Estimated GFR () 66.3 Estimated GFR (Non- 57.2 BUN/Creatinine Ratio 22.4 Random Glucose 642 mg/dl Calcium Level 9.7 mg/dl Phosphorus Level 4.9 mg/dl Magnesium Level 2.9 mg/dl Beta-Hydroxybutyric Acid 8.84 mg/dL Procalcitonin 0.27 ng/ml Ethyl Alcohol mg/dL < 3.0 mg/dl D-Dimer 560 ug/L FEU Venous Blood pH 7.39 Bedside Glucose 554 mg/dl 412 mg/dl Test 08/24/17 22:36 08/24/17 22:40 08/24/17 23:02 08/24/17 23:27 Bedside Glucose 349 mg/dl 299 mg/dl Creatine Kinase MB Ratio 0.5 Venous Blood pH 7.39 Sodium Level 153 mmol/L Potassium Level 3.6 mmol/L Chloride Level 112 mmol/L Carbon Dioxide Level 38 mmol/L Anion Gap 3.0 mmol/L Blood Urea Nitrogen 27 mg/dl Creatinine 1.30 mg/dl Est Creatinine Clear Calc Drug Dose 108.2 ml/min Estimated GFR () 76.9 Estimated GFR (Non- 66.4 BUN/Creatinine Ratio 20.8 Random Glucose 346 mg/dl Calcium Level 9.7 mg/dl Phosphorus Level 2.8 mg/dl Magnesium Level 2.8 mg/dl Total Creatine Kinase 319 U/L Creatine Kinase MB 1.7 ng/ml Troponin I < 0.015 ng/ml Beta-Hydroxybutyric Acid 1.66 mg/dL Hepatitis C Antibody NEG Test 08/25/17 00:29 08/25/17 01:38 08/25/17 01:54 08/25/17 02:12 Bedside Glucose 246 mg/dl 180 mg/dl 198 mg/dl 196 mg/dl Test 08/25/17 02:30 08/25/17 03:03 08/25/17 04:02 08/25/17 05:10 Bedside Glucose 207 mg/dl 220 mg/dl 217 mg/dl 211 mg/dl White Blood Count 11.92 K/uL Red Blood Count 5.41 M/uL Hemoglobin 16.8 g/dL Hematocrit 51.3 % Mean Corpuscular Volume 94.8 fL Mean Corpuscular Hemoglobin 31.1 pg Mean Corpuscular Hemoglobin Concent 32.7 g/dl Platelet Count 152 K/uL Mean Platelet Volume 11.6 fL Neutrophils (%) (Auto) 61.8 % Lymphocytes (%) (Auto) 29.0 % Monocytes (%) (Auto) 6.8 % Eosinophils (%) (Auto) 1.8 % Basophils (%) (Auto) 0.3 % Neutrophils # (Auto) 7.38 K/uL Lymphocytes # (Auto) 3.46 K/uL Monocytes # (Auto) 0.81 K/uL Eosinophils # (Auto) 0.21 K/uL Basophils # (Auto) 0.03 K/uL RDW Standard Deviation 47.2 fL RDW Coefficient of Variation 13.7 % Immature Granulocyte % (Auto) 0.3 % Immature Granulocyte # (Auto) 0.03 K/uL Venous Blood pH 7.39 Sodium Level 154 mmol/L Potassium Level 3.8 mmol/L Chloride Level 112 mmol/L Carbon Dioxide Level 38 mmol/L Anion Gap 4.0 mmol/L Blood Urea Nitrogen 26 mg/dl Creatinine 1.18 mg/dl Est Creatinine Clear Calc Drug Dose 119.2 ml/min Estimated GFR () 86.5 Estimated GFR (Non- 74.6 BUN/Creatinine Ratio 22.1 Random Glucose 245 mg/dl Calcium Level 9.2 mg/dl Phosphorus Level 2.8 mg/dl Magnesium Level 2.6 mg/dl Total Creatine Kinase 321 U/L Creatine Kinase MB 1.7 ng/ml Creatine Kinase MB Ratio 0.5 Troponin I 0.016 ng/ml Lipase 140 U/L Test 08/25/17 08:00 Date/Time Source Procedure Growth Status 08/24/17 19:49 Blood Blood Culture Pending Received 08/24/17 16:40 Blood Blood Culture Pending Received 08/24/17 16:38 Nasal MRSA DNA Surveillance Screen - Final Specimen Negative for MRSA by DNA Probe Complete Assessment & Plan DM TYPE 2, UNCONTROLLED / HYPEROSMOLAR HYPERGLYCEMIC STATE Presented with blood sugar of 1152. Although ketones were present (elevated BHB), anion gap and pH were normal. Therefore, favor HHS rather than DKA. Hgb A1C 16. No apparent infection or other acute illness that might precipitate hyperglycemia; suspect noncompliance is a factor. Pharmacy consulted for glycemia management. Glucose has improved with insulin infusion. Transition to SQ therapy per protocol. Ongoing diabetes education / support. ALTERED MENTAL STATUS Head CT negative. Metabolic encephalopathy secondary to HHS. Improved. HISTORY PULMONARY EMBOLISM / FACTOR V LEIDEN MUTATION / ELEVATED D-DIMER Compliance with rivaroxaban uncertain. D-dimer elevated. CTA chest negative for PE. Venous duplex lower extremities negative for DVT. Resume rivaroxaban. HYPERTENSION Lisinopril held due to BROOKS. Follow and titrate therapy. ACUTE KIDNEY INJURY Serum creatinine 2.13 on admission. BROOKS probably secondary to hyperglycemia / osmolar diuresis. Received IV fluids. Serum creatinine today = 1.18. Follow. HYPERNATREMIA Serum sodium this morning = 154. Adjust IV fluids. CHRONIC PAIN Continue methadone at usual dose. VTE PROPHYLAXIS Receiving SQ heparin. Resume rivaroxaban. DISPOSITION Expected discharge to home. Family Medicine follow-up with Dr. Fuentes. . Current Inpatient Medications: Current Inpatient Medications Medications (Trade) Dose Ordered Sig/Ehsan Route Start Time Stop Time Status Last Admin Dose Admin Ioversol (Optiray 320) 100 ml UD PRN IV 08/24/17 12:45 08/28/17 12:44 Miscellaneous Information (Consult Glycemic Management Pharmacy) 1 ea UD PRN N/A 08/24/17 14:15 09/23/17 14:14 Insulin Aspart (novoLOG ASPART) SLIDING SCALE PCHS SC 08/24/17 17:15 09/23/17 18:59 Glucose (Glucose 40% Gel) UD PRN PO 08/24/17 14:45 09/23/17 14:44 Glucose (Glucose Chew Tab) 1 tabs UD PRN PO 08/24/17 14:45 09/23/17 14:44 Dextrose (Dextrose 50% 50ML Syringe) 50 ml UD PRN IV 08/24/17 14:45 09/23/17 14:44 Glucagon (Glucagon Inj) 1 mg UD PRN SQ 08/24/17 14:45 09/23/17 14:44 Heparin Sodium (Porcine) (Heparin Sq 5000 Unit/0.5ml) 5,000 unit Q8 SQ 08/24/17 22:00 09/23/17 21:59 08/25/17 05:54 5,000 UNIT Acetaminophen (Tylenol Tab) 650 mg Q4H PRN PO 08/24/17 14:45 09/23/17 14:44 Pantoprazole Sodium 40 mg/ Syringe 10 ml @ 5 mls/min DAILY@1100 IV 08/25/17 11:00 09/24/17 10:59 Naloxone HCl 5 mg/ Sodium Chloride 112.5 ml @ 5 mls/hr [id number] IV 08/24/17 16:45 09/23/17 16:44 08/25/17 02:16 5 MLS/HR Parenteral Electrolyte Solution 1,000 ml @ 150 mls/hr [id number] IV 08/24/17 20:30 09/23/17 20:29 08/25/17 02:15 150 MLS/HR Rivaroxaban (Xarelto Tab) 15 mg DAILY PO 08/25/17 09:00 09/24/17 08:59 08/25/17 07:59 15 MG
[2017-08-25] MEDS ORDERED: NON-FORMULARY MEDICATION (Omeprazole (Prilosec) 40 MG) PO SCH (09:00)
[2017-08-25 09:11] LABS: BUN/CREATININE RATIO 19.9 (10-20); CREATININE 1.19 mg/dl (0.60-1.40); MAGNESIUM 2.7 mg/dl (1.8-2.4); PHOSPHORUS 2.4 mg/dl (2.5-4.9); POTASSIUM 3.6 mmol/L (3.5-5.1)
--- NOTE | 2017-08-25 10:14 | Nephrology Consultation ---
Nephrology Consultation Date of Consultation: Aug 24, 2017. ( delayed note) Reason for Consultation: ARF and Electrolyte issues History of Present Illness 42 /M with PMH chronic back pain, substance abuse - on methadone, HTN, obesity , Factor V Leiden with h/o DVT, ???on xarelto, presented to ED with c/o altered mental status for couple of days. He fell on 08/20/17 backwards hitting wall with his head . Since then somewhat seems confused, more drowsy, decreased appetite and has been c/o being dizzy. Pt was given additional dose of narcan . C/O nausea and intermittent vomiting past couple of days. Pt goes to methadone clinic, denies using any other drugs. Pt reports was told he is diabetic few years ago and was on metformin 500mg 1 tab daily and on 07/29/17 it was increased to 2 tabs daily. Last glucose was 257 on 09/17/15 hospital records. for thee last few years he was c/o POlydipsia and polyuria and has lost more than 80 lbvs of weight . He thought he was doing great by loosing wt. Pt admits to being non-compliant with his medications. Denies any known fever , chills, diaphoresis, diarrhea, constipation, vision changes, CP, SOB, orthopnea, palpitations, cough, sore throat, choking, otalgia, rhinorrhea, abdominal pain, paresthesias, weakness, extremity edema, rashes, dysuria, hematuria. In ER pt afebrile, desats to 86% on RA, 90% on 4L NC. ER staff reports pt somnolent and arouses after narcan multiple doses. Glucose: 1152, beta hydroxybutyric acid: 19, hgbA1c: 16.8, BUN: 39, CR: 2.1, urine: trace ketones, urine tox: +methadone. Na was 138. Started on Insulin drip and aggressive hydration. making urine. Seemed alert when I saw him in the ICU. Past Medical/Surgical History Medical Problems: (1) Altered mental status Status: Resolved (2) Cellulitis of forearm, left Status: Resolved (3) Chest pain Status: Resolved (4) Chronic back pain Status: Chronic (5) Chronic deep venous thrombosis Status: Chronic (6) Chronic dental pain Status: Chronic (7) CHRONIC PAIN SYNDROME Status: Chronic (8) Degeneration of lumbar intervertebral disc Status: Resolved (9) Depression Status: Chronic (10) Discitis Status: Chronic (11) Dyslipidemia Status: Chronic (12) Epistaxis Status: Resolved (13) Factor V Leiden mutation Status: Chronic (14) Foot fracture, right Status: Resolved (15) GERD (gastroesophageal reflux disease) Status: Chronic (16) HTN (hypertension) Status: Chronic (17) Migraine Status: Chronic (18) Multiple injuries 2007 Permanent Comment: slipped on floor 2007 injured back, left hip, left knee Status: Resolved (19) Narcotic withdrawal Status: Resolved (20) Noncompliance with medication regimen Status: Resolved (21) Osteomyelitis of thoracic spine Status: Resolved (22) Pneumonia Status: Resolved (23) Pulmonary embolism Status: Resolved (24) Recurrent DVT Status: Chronic (25) Respiratory failure Status: Resolved (26) Stasis dermatitis, acute Status: Resolved (27) Superficial phlebitis of arm Status: Resolved (28) TOBACCO USE DISORDER Status: Chronic Surgical Problems: (1) s/p left hip arthroscopy Status: Resolved (2) s/p left knee ACL repair Status: Resolved Family History Depression BROTHER FHx: diabetes BROTHER Social History Smoking Status: Current Every Day Smoker (0.25ppd x 10 years) Smokeless Tobacco Use: No Alcohol Use: occasionally Drug Use: other (hx substance abuse. currently on methadone) Marital Status: single Housing status: lives with family Occupational Status: student Immunizations History of Influenza Vaccine: N/A History of Tetanus Vaccine?: No History of Pneumococcal: No History of Hepatitis B Vaccine: No Multi-Drug Resistant Organisms History of MDRO: No Allergies Coded Allergies: Amoxicillin (Verified Allergy, Severe, Hives, swelling of tongue and throat., 08/24/17) Reported by PT. Clindamycin (Verified Allergy, Severe, lip swelling, rash, 08/24/17) Penicillins (Unverified Allergy, Severe, Hives, swelling of tongue and throat., 08/24/17) Reported by PT. Aspirin (Verified Allergy, Intermediate, GI SYMPTOMS, 08/24/17) CI Pigment Blue 63 (Verified Allergy, Intermediate, DELIRIUM, 08/24/17) Duloxetine (Verified Allergy, Intermediate, DELIRIUM, 08/24/17) Ketorolac Tromethamine (Verified Allergy, Intermediate, GI SYMPTOMS, 08/24) NSAIDs (Unverified Adverse Reaction, Intermediate, SUICIDAL/HOMICIDAL, ) Tramadol (Unverified Adverse Reaction, Intermediate, SUICIDAL/HOMICIDAL, 08/24/17) Acetaminophen (Unverified Adverse Reaction, Unknown, Abdominal cramping and diarrhea., 08/24/17) Reported by PT. Azithromycin (Verified Adverse Reaction, Unknown, abd pain cramps, ) Home Medications Scheduled Bupropion HCl (Bupropion HCl Sr), 150 MG PO DAILY Docusate Sodium (Ra Col-Rite), 100 MG PO BID Lisinopril (Lisinopril), 5 MG PO DAILY Metformin Hcl Er (Glucophage Er), 500 MG PO DAILY Omeprazole (Prilosec), 40 MG PO DAILY Simvastatin (Simvastatin), 20 MG PO HS Review of Systems 12 systems reviewed and negative. +ve listed in HPI. Physical Ex - H&P Physical Exam Vital Signs Date Time Temp Pulse Resp B/P (MAP) Pulse Ox O2 Delivery O2 Flow Rate FiO2 08/24/17 14:13 97 08/24/17 14:02 98 23 149/96 95 Room Air 08/24/17 13:10 98 130/96 90 Nasal Cannula 4.0 08/24/17 12:35 96 149/83 93 Room Air 08/24/17 11:29 104 08/24/17 11:27 102 156/115 90 Nasal Cannula 4.0 08/24/17 11:16 91 Nasal Cannula 4.0 08/24/17 11:16 91 Nasal Cannula 4.0 08/24/17 10:54 36.7 108 18 153/91 86 Room Air General Appearance: + obese, looks older than age. Head: normocephalic, atraumatic +dry mucous membranes) Neck: supple, no JVD, no carotid bruits Respiratory/Chest: chest non-tender, lungs clear, normal breath sounds, no respiratory distress, no accessory muscle use Cardiovascular: no murmur, + tachycardia (100-106) Abdomen/GI: normal bowel sounds, non tender, soft Extremities/Musculoskelatal: no calf tenderness, normal capillary refill, non- tender, + no edema venous stasis skin changes bilateral lower legs) Neurologic/Psych: By my exam time after naracan he was fully awake and alert. Diagnostics - H&P Diagnostics Laboratory Results Last 24 Hours Test 08/24/17 11:30 08/24/17 11:55 08/24/17 13:54 08/24/17 14:06 White Blood Count 13.21 K/uL Red Blood Count 6.08 M/uL Hemoglobin 19.2 g/dL Hematocrit 60.0 % Mean Corpuscular Volume 98.7 fL Mean Corpuscular Hemoglobin 31.6 pg Mean Corpuscular Hemoglobin Concent 32.0 g/dl Platelet Count 191 K/uL Mean Platelet Volume 12.9 fL Neutrophils (%) (Auto) 70.1 % Lymphocytes (%) (Auto) 19.8 % Monocytes (%) (Auto) 9.4 % Eosinophils (%) (Auto) 0.2 % Basophils (%) (Auto) 0.2 % Neutrophils # (Auto) 9.28 K/uL Lymphocytes # (Auto) 2.61 K/uL Monocytes # (Auto) 1.24 K/uL Eosinophils # (Auto) 0.02 K/uL Basophils # (Auto) 0.02 K/uL RDW Standard Deviation 49.8 fL RDW Coefficient of Variation 13.7 % Immature Granulocyte % (Auto) 0.3 % Immature Granulocyte # (Auto) 0.04 K/uL Sodium Level 138 mmol/L 144 mmol/L Potassium Level mmol/L 5.1 mmol/L Chloride Level 96 mmol/L 100 mmol/L Carbon Dioxide Level mmol/L 34 mmol/L Anion Gap mmol/L 10.0 mmol/L Blood Urea Nitrogen 39 mg/dl 39 mg/dl Creatinine 2.13 mg/dl 1.70 mg/dl Est Creatinine Clear Calc Drug Dose 66.1 ml/min 82.8 ml/min Estimated GFR () 42.3 55.6 Estimated GFR (Non- 36.5 48.0 BUN/Creatinine Ratio 18.5 23.1 Random Glucose 1152 mg/dl 909 mg/dl Estimated Average Glucose 435 mg/dl Hemoglobin A1c 16.8 % Calcium Level 9.9 mg/dl 10.1 mg/dl Total Bilirubin 0.8 mg/dl Aspartate Amino Transf (AST/SGOT) U/L Alanine Aminotransferase (ALT/SGPT) 265 U/L Alkaline Phosphatase 145 U/L Total Protein 9.2 gm/dl Albumin 3.9 gm/dl Globulin 5.3 gm/dl Albumin/Globulin Ratio 0.7 Beta-Hydroxybutyric Acid mg/dL 19.26 mg/dL Urine Color YELLOW Urine Appearance CLEAR Urine pH 5.0 Urine Specific [place] 1.042 Urine Protein NEG Urine Glucose (UA) 3+ Urine Ketones TRACE Urine Occult Blood NEG Urine Nitrite NEG Urine Bilirubin NEG Urine Urobilinogen NEG Urine Leukocyte Esterase NEG Urine Opiates Screen NEG Urine Methadone, Qualitative POS Urine Barbiturates NEG Urine Phencyclidine (PCP) Level NEG Ur Amphetamine/Methamphetamine NEG MDMA (Ecstasy) Screen NEG Urine Benzodiazepines Screen NEG Urine Cocaine Metabolite NEG Urine Marijuana (THC) NEG Prothrombin Time 11.1 SECONDS Prothromb Time International Ratio 1.0 Activated Partial Thromboplast Time 20.6 SECONDS Partial Thromboplastin Ratio 0.8 Phosphorus Level 7.1 mg/dl Magnesium Level 3.2 mg/dl Total Creatine Kinase 268 U/L Creatine Kinase MB 2.2 ng/ml Creatine Kinase MB Ratio 0.8 Troponin I < 0.015 ng/ml Test 08/24/17 14:25 08/24/17 14:39 08/24/17 14:40 Arterial Blood pH 7.35 Arterial Blood Partial Pressure CO2 64 mmHg Arterial Blood Partial Pressure O2 64 mm/Hg Arterial Blood HCO3 35 mmol/L Arterial Blood Oxygen Saturation 90.3 % Arterial Blood Base Excess 6.1 mEq/L Arterial Blood Gas Delivery 4L Salazar Test POS Diagnostic Radiology Head CT: IMPRESSION: No acute intracranial findings CXR: IMPRESSION: Minimal basilar atelectasis. Otherwise negative study. CT CHEST: IMPRESSION: 1. Study is negative for pulmonary embolus. 2. Lungs are clear. 3. Mild peribronchial thickening bilaterally. 4. Fatty infiltration of liver Family History Depression BROTHER FHx: diabetes BROTHER Social History Smoking Status: Current Every Day Smoker Alcohol Use: none Drug Use: other (hx substance abuse. currently on methadone) Marital Status: single Housing Status: lives with family Occupation Status: student Allergies Coded Allergies: Amoxicillin (Verified Allergy, Severe, Hives, swelling of tongue and throat., 08/24/17) Reported by PT. Clindamycin (Verified Allergy, Severe, lip swelling, rash, 08/24/17) Penicillins (Verified Allergy, Severe, Hives, swelling of tongue and throat., 08/24/17) Reported by PT. Aspirin (Verified Allergy, Intermediate, GI SYMPTOMS, 08/24/17) Duloxetine (Verified Allergy, Intermediate, DELIRIUM, 08/24/17) NSAIDs (Verified Adverse Reaction, Severe, SUICIDAL/HOMICIDAL, 08/24/17) Tramadol (Verified Adverse Reaction, Severe, SUICIDAL/HOMICIDAL, 08/24/17) Acetaminophen (Verified Adverse Reaction, Mild, Abdominal cramping and diarrhea., 08/24/17) Reported by PT. Azithromycin (Verified Adverse Reaction, Mild, abd pain cramps, 08/24/17) Ketorolac Tromethamine (Verified Adverse Reaction, Mild, GI SYMPTOMS, ) Medications Current Inpatient Medications Medications (Trade) Dose Ordered Sig/Ehsan Route Start Time Stop Time Status Last Admin Dose Admin Ioversol (Optiray 320) 100 ml UD PRN IV 08/24/17 12:45 08/28/17 12:44 Miscellaneous Information (Consult Glycemic Management Pharmacy) 1 ea UD PRN N/A 08/24/17 14:15 09/23/17 14:14 Insulin Human Regular 250 units/ Sodium Chloride 252.5 ml @ 0 mls/hr Q24H IV 08/24/17 15:00 08/28/17 23:59 08/24/17 19:57 7.8 MLS/HR Insulin Aspart (novoLOG ASPART) SLIDING SCALE PCHS SC 08/24/17 17:15 09/23/17 18:59 08/25/17 09:39 12 UNITS Glucose (Glucose 40% Gel) UD PRN PO 08/24/17 14:45 09/23/17 14:44 Glucose (Glucose Chew Tab) 1 tabs UD PRN PO 08/24/17 14:45 09/23/17 14:44 Dextrose (Dextrose 50% 50ML Syringe) 50 ml UD PRN IV 08/24/17 14:45 09/23/17 14:44 Glucagon (Glucagon Inj) 1 mg UD PRN SQ 08/24/17 14:45 09/23/17 14:44 Heparin Sodium (Porcine) (Heparin Sq 5000 Unit/0.5ml) 5,000 unit Q8 SQ 08/24/17 22:00 09/23/17 21:59 08/25/17 05:54 5,000 UNIT Acetaminophen (Tylenol Tab) 650 mg Q4H PRN PO 08/24/17 14:45 09/23/17 14:44 Pantoprazole Sodium 40 mg/ Syringe 10 ml @ 5 mls/min DAILY@1100 IV 08/25/17 11:00 09/24/17 10:59 Naloxone HCl 5 mg/ Sodium Chloride 112.5 ml @ 5 mls/hr [id number] IV 08/24/17 16:45 09/23/17 16:44 08/25/17 02:16 5 MLS/HR Parenteral Electrolyte Solution 1,000 ml @ 150 mls/hr [id number] IV 08/24/17 20:30 09/23/17 20:29 08/25/17 09:00 150 MLS/HR Rivaroxaban (Xarelto Tab) 15 mg DAILY PO 08/25/17 09:00 09/24/17 08:59 08/25/17 07:59 15 MG Home Meds and Scripts Medications Dose Route/Sig Max Daily Dose Days Date Category Dose Instructions Methadose (Methadone HCl) 10 Mg/Ml Soln 111 Mg PO DAILY 08/24/17 Reported Valtrex (Valacyclovir Hcl) 1 Gm Tab 2 Tab PO UD 30 08/24/17 Reported 2 tabs po Q12 hr for 1 day prn cold sore Imitrex (Sumatriptan Succinate) 100 Mg Tab 1 Tab PO UD 30 08/24/17 Reported 1 tab po Q2hrs prn migraine. do not exceed more than 2 tabs in 24 hours Gabapentin 800 Mg Tab 1 Tab PO QID 08/24/17 Reported Xarelto (Rivaroxaban) 15 Mg Tab 1 Tab PO DAILY 08/24/17 Reported Glucophage Er (Metformin HCl) 500 Mg Tab 1,000 Mg PO DAILY 08/24/17 Reported Prilosec (Omeprazole) 40 Mg Cap 40 Mg PO DAILY 08/24/17 Reported Simvastatin 20 Mg Tab 20 Mg PO HS 08/24/17 Reported Lisinopril 5 Mg Tab 5 Mg PO DAILY 08/24/17 Reported Bupropion HCl Sr (Bupropion HCl) 150 Mg Tabcr 150 Mg PO DAILY 08/24/17 Reported Ra Col-Rite (Docusate Sodium) 100 Mg Cap 100 Mg PO BID 08/24/17 Reported Physical Exam Date Time Temp Pulse Resp B/P (MAP) Pulse Ox O2 Delivery O2 Flow Rate FiO2 08/25/17 08:00 94 Nasal Cannula 4.0 08/25/17 08:00 36.6 87 16 144/96 (112) 94 Nasal Cannula 4.0 08/25/17 06:01 87 18 140/78 (108) 92 08/25/17 04:24 36.9 96 14 118/84 (97) 93 08/25/17 04:00 93 Nasal Cannula 08/25/17 02:01 90 17 133/86 (98) 94 08/25/17 01:01 90 22 113/90 (102) 92 08/25/17 00:01 36.5 90 24 133/87 (95) 93 08/24/17 23:59 93 Nasal Cannula 08/24/17 22:30 91 27 137/96 (104) 91 08/24/17 20:15 91 27 137/96 (104) 91 08/24/17 20:02 93 19 72/44 (66) 96 08/24/17 20:00 91 4.0 08/24/17 20:00 93 18 94 08/24/17 19:01 94 26 138/91 (110) 94 08/24/17 19:00 95 22 08/24/17 18:01 96 25 131/96 (105) 90 08/24/17 18:00 95 20 91 08/24/17 17:01 96 22 120/79 (101) 92 08/24/17 17:00 96 20 90 08/24/17 16:38 94 17 136/97 (111) 92 08/24/17 16:34 36.7 101 23 144/86 92 4.0 08/24/17 16:02 101 157/107 94 08/24/17 15:36 97 157/107 (112) 92 08/24/17 15:00 97 93 08/24/17 14:31 100 19 118/88 (109) 90 08/24/17 14:13 97 08/24/17 14:02 98 23 149/96 95 Nasal Cannula 4.0 08/24/17 14:02 99 24 149/96 (102) 91 08/24/17 14:01 97 25 153/100 (131) 92 08/24/17 14:00 96 26 93 08/24/17 13:10 98 130/96 90 Nasal Cannula 4.0 08/24/17 12:35 96 149/83 93 Room Air 08/24/17 11:29 104 08/24/17 11:27 102 156/115 90 Nasal Cannula 4.0 11/22/17 11:16 91 Nasal Cannula 4.0 08/24/17 11:16 91 Nasal Cannula 4.0 08/24/17 10:54 36.7 108 18 153/91 86 Room Air General Appearance: + mild distress, + obese Neck: supple, no JVD Respiratory/Chest: lungs clear, no respiratory distress Cardiovascular: regular rate, rhythm, no edema Abdomen: non tender, soft Extremities: non-tender, no pedal edema Skin: + pertinent finding skin changes of venous stasis seen Diagnostics Last 24 Hours Test 08/24/17 11:30 08/24/17 11:55 08/24/17 13:54 08/24/17 13:59 White Blood Count 13.21 K/uL Red Blood Count 6.08 M/uL Hemoglobin 19.2 g/dL Hematocrit 60.0 % Mean Corpuscular Volume 98.7 fL Mean Corpuscular Hemoglobin 31.6 pg Mean Corpuscular Hemoglobin Concent 32.0 g/dl Platelet Count 191 K/uL Mean Platelet Volume 12.9 fL Neutrophils (%) (Auto) 70.1 % Lymphocytes (%) (Auto) 19.8 % Monocytes (%) (Auto) 9.4 % Eosinophils (%) (Auto) 0.2 % Basophils (%) (Auto) 0.2 % Neutrophils # (Auto) 9.28 K/uL Lymphocytes # (Auto) 2.61 K/uL Monocytes # (Auto) 1.24 K/uL Eosinophils # (Auto) 0.02 K/uL Basophils # (Auto) 0.02 K/uL RDW Standard Deviation 49.8 fL RDW Coefficient of Variation 13.7 % Immature Granulocyte % (Auto) 0.3 % Immature Granulocyte # (Auto) 0.04 K/uL Sodium Level 138 mmol/L Potassium Level mmol/L Chloride Level 96 mmol/L Carbon Dioxide Level mmol/L Anion Gap mmol/L Blood Urea Nitrogen 39 mg/dl Creatinine 2.13 mg/dl Est Creatinine Clear Calc Drug Dose 66.1 ml/min Estimated GFR () 42.3 Estimated GFR (Non- 36.5 BUN/Creatinine Ratio 18.5 Random Glucose 1152 mg/dl Estimated Average Glucose 435 mg/dl Hemoglobin A1c 16.8 % Calcium Level 9.9 mg/dl Total Bilirubin 0.8 mg/dl Aspartate Amino Transf (AST/SGOT) U/L Alanine Aminotransferase (ALT/SGPT) 265 U/L Alkaline Phosphatase 145 U/L Total Protein 9.2 gm/dl Albumin 3.9 gm/dl Globulin 5.3 gm/dl Albumin/Globulin Ratio 0.7 Beta-Hydroxybutyric Acid mg/dL Urine Color YELLOW Urine Appearance CLEAR Urine pH 5.0 Urine Specific [place] 1.042 Urine Protein NEG Urine Glucose (UA) 3+ Urine Ketones TRACE Urine Occult Blood NEG Urine Nitrite NEG Urine Bilirubin NEG Urine Urobilinogen NEG Urine Leukocyte Esterase NEG Urine Opiates Screen NEG Urine Methadone, Qualitative POS Urine Barbiturates NEG Urine Phencyclidine (PCP) Level NEG Ur Amphetamine/Methamphetamine NEG MDMA (Ecstasy) Screen NEG Urine Benzodiazepines Screen NEG Urine Cocaine Metabolite NEG Urine Marijuana (THC) NEG Prothrombin Time 11.1 SECONDS Prothromb Time International Ratio 1.0 Activated Partial Thromboplast Time 20.6 SECONDS Partial Thromboplastin Ratio 0.8 Bedside Glucose > 600 mg/dl Test 08/24/17 14:06 08/24/17 14:10 08/24/17 14:25 08/24/17 16:40 Sodium Level 144 mmol/L Potassium Level 5.1 mmol/L Chloride Level 100 mmol/L Carbon Dioxide Level 34 mmol/L Anion Gap 10.0 mmol/L 19.0 mmol/L Blood Urea Nitrogen 39 mg/dl Creatinine 1.70 mg/dl Est Creatinine Clear Calc Drug Dose 82.8 ml/min Estimated GFR () 55.6 Estimated GFR (Non- 48.0 BUN/Creatinine Ratio 23.1 Random Glucose 909 mg/dl Calcium Level 10.1 mg/dl Phosphorus Level 7.1 mg/dl Magnesium Level 3.2 mg/dl Total Creatine Kinase 268 U/L Creatine Kinase MB 2.2 ng/ml Creatine Kinase MB Ratio 0.8 Troponin I < 0.015 ng/ml Lipase 305 U/L Beta-Hydroxybutyric Acid 19.26 mg/dL Thyroid Stimulating Hormone (TSH) 0.096 uIu/ml Bedside Hemoglobin 19.0 g/dl Bedside Hematocrit 56 % Bedside Sodium 147 mEq/L Bedside Potassium 5.2 mEq/L Bedside Chloride 101 mEq/L Bedside Total CO2 33 mEq/l Bedside Blood Urea Nitrogen 38 mg/dl Bedside Creatinine 1.2 mg/dl Bedside Glucose (other) > 700 mg/dl Bedside Ionized Calcium (Michel) 1.24 mmol/l Arterial Blood pH 7.35 Arterial Blood Partial Pressure CO2 64 mmHg Arterial Blood Partial Pressure O2 64 mm/Hg Arterial Blood HCO3 35 mmol/L Arterial Blood Oxygen Saturation 90.3 % Arterial Blood Base Excess 6.1 mEq/L Arterial Blood Gas Delivery 4L Salazar Test POS Lactic Acid Level 1.7 mmol/L Test 08/24/17 17:58 08/24/17 19:49 08/24/17 20:35 08/24/17 21:33 Sodium Level 150 mmol/L Potassium Level 3.8 mmol/L Chloride Level 110 mmol/L Carbon Dioxide Level 33 mmol/L Anion Gap 7.0 mmol/L Blood Urea Nitrogen 33 mg/dl Creatinine 1.47 mg/dl Est Creatinine Clear Calc Drug Dose 95.7 ml/min Estimated GFR () 66.3 Estimated GFR (Non- 57.2 BUN/Creatinine Ratio 22.4 Random Glucose 642 mg/dl Calcium Level 9.7 mg/dl Phosphorus Level 4.9 mg/dl Magnesium Level 2.9 mg/dl Beta-Hydroxybutyric Acid 8.84 mg/dL Procalcitonin 0.27 ng/ml Ethyl Alcohol mg/dL < 3.0 mg/dl D-Dimer 560 ug/L FEU Venous Blood pH 7.39 Bedside Glucose 554 mg/dl 412 mg/dl Test 08/24/17 22:36 08/24/17 22:40 08/24/17 23:02 08/24/17 23:27 Bedside Glucose 349 mg/dl 299 mg/dl Creatine Kinase MB Ratio 0.5 Venous Blood pH 7.39 Sodium Level 153 mmol/L Potassium Level 3.6 mmol/L Chloride Level 112 mmol/L Carbon Dioxide Level 38 mmol/L Anion Gap 3.0 mmol/L Blood Urea Nitrogen 27 mg/dl Creatinine 1.30 mg/dl Est Creatinine Clear Calc Drug Dose 108.2 ml/min Estimated GFR () 76.9 Estimated GFR (Non- 66.4 BUN/Creatinine Ratio 20.8 Random Glucose 346 mg/dl Calcium Level 9.7 mg/dl Phosphorus Level 2.8 mg/dl Magnesium Level 2.8 mg/dl Total Creatine Kinase 319 U/L Creatine Kinase MB 1.7 ng/ml Troponin I < 0.015 ng/ml Beta-Hydroxybutyric Acid 1.66 mg/dL Hepatitis C Antibody NEG Test 08/25/17 00:29 08/25/17 01:38 08/25/17 01:54 08/25/17 02:12 Bedside Glucose 246 mg/dl 180 mg/dl 198 mg/dl 196 mg/dl Test 08/25/17 02:30 08/25/17 03:03 08/25/17 04:02 08/25/17 05:10 Bedside Glucose 207 mg/dl 220 mg/dl 217 mg/dl 211 mg/dl White Blood Count 11.92 K/uL Red Blood Count 5.41 M/uL Hemoglobin 16.8 g/dL Hematocrit 51.3 % Mean Corpuscular Volume 94.8 fL Mean Corpuscular Hemoglobin 31.1 pg Mean Corpuscular Hemoglobin Concent 32.7 g/dl Platelet Count 152 K/uL Mean Platelet Volume 11.6 fL Neutrophils (%) (Auto) 61.8 % Lymphocytes (%) (Auto) 29.0 % Monocytes (%) (Auto) 6.8 % Eosinophils (%) (Auto) 1.8 % Basophils (%) (Auto) 0.3 % Neutrophils # (Auto) 7.38 K/uL Lymphocytes # (Auto) 3.46 K/uL Monocytes # (Auto) 0.81 K/uL Eosinophils # (Auto) 0.21 K/uL Basophils # (Auto) 0.03 K/uL RDW Standard Deviation 47.2 fL RDW Coefficient of Variation 13.7 % Immature Granulocyte % (Auto) 0.3 % Immature Granulocyte # (Auto) 0.03 K/uL Venous Blood pH 7.39 Sodium Level 154 mmol/L Potassium Level 3.8 mmol/L Chloride Level 112 mmol/L Carbon Dioxide Level 38 mmol/L Anion Gap 4.0 mmol/L Blood Urea Nitrogen 26 mg/dl Creatinine 1.18 mg/dl Est Creatinine Clear Calc Drug Dose 119.2 ml/min Estimated GFR () 86.5 Estimated GFR (Non- 74.6 BUN/Creatinine Ratio 22.1 Random Glucose 245 mg/dl Calcium Level 9.2 mg/dl Phosphorus Level 2.8 mg/dl Magnesium Level 2.6 mg/dl Total Creatine Kinase 321 U/L Creatine Kinase MB 1.7 ng/ml Creatine Kinase MB Ratio 0.5 Troponin I 0.016 ng/ml Lipase 140 U/L Test 08/25/17 05:58 08/25/17 08:01 08/25/17 08:17 08/25/17 08:42 Bedside Glucose 217 mg/dl 185 mg/dl 189 mg/dl Venous Blood pH 7.37 Sodium Level 156 mmol/L Potassium Level 3.6 mmol/L Chloride Level 113 mmol/L Carbon Dioxide Level 38 mmol/L Anion Gap 4.0 mmol/L Blood Urea Nitrogen 24 mg/dl Creatinine 1.19 mg/dl Est Creatinine Clear Calc Drug Dose 118.5 ml/min Estimated GFR () 85.6 Estimated GFR (Non- 73.8 BUN/Creatinine Ratio 19.9 Random Glucose 207 mg/dl Calcium Level 9.0 mg/dl Phosphorus Level 2.4 mg/dl Magnesium Level 2.7 mg/dl Total Bilirubin 0.5 mg/dl Direct Bilirubin 0.1 mg/dl Aspartate Amino Transf (AST/SGOT) 59 U/L Alanine Aminotransferase (ALT/SGPT) 164 U/L Alkaline Phosphatase 98 U/L Total Protein 6.7 gm/dl Albumin 2.9 gm/dl Assessment & Plan 42/M Severe Uncontrolled DM 2 presenting with Hyperosmolar state and associated ARF and major electrolyte disorders. It was not DKA. ARF--pre renal--Continue Hydration. It is improving and will improve further. Hypernatremia---Typically with high glucose they have true water deficit and hypernatremia. But at the time of Admission extreme hyperglycemia was causing Pseudohyponatremia thus they were cancelling each other out. anw now with much better glucose the true na state is being seen. Now with rising NA+ Recommend to change the iv fluid to 1/2 NS at 150 ml/hr.Check labs every 8 hrs. High Mag--will improve slowly. Current choice of fluid --Normosol may not be the best--as it has Mag and too much Na. Thanks for the consult.
[2017-08-25] MEDS ORDERED: POTASSIUM CHLORIDE 20 MEQ TABCR PO STA (10:35)
[2017-08-25] MEDS: LACTATED RINGER'S 1000ML 1,000 ML IV SCH ×3 (10:42→19:23)
[2017-08-25] MEDS ORDERED: PANTOprazole INJ 40 MG in SYRINGE 0 ML IV SCH (11:00)
--- NOTE | 2017-08-25 11:25 | Critical Care Progress Note ---
Critical Care Progress Note Date of Service Aug 25, 2017. ICU Day ICU Day Number: [address] Schroeder Subjective NO acute events overnight. He denies lightheadedness, diaphoresis, N/V, abdominal pain, change in stool, CP, SOB. Objective GENERAL: alert, well appearing, no distress, non-toxic EYE EXAM: normal conjunctiva, PERRL and EOM's grossly intact NECK: supple, no nuchal rigidity, no adenopathy, non-tender LUNGS: Clear to auscultation. Normal chest wall mechanics HEART: no murmurs, S1 normal and S2 normal ABDOMEN: abdomen soft, non-tender, normo-active bowel sounds, no masses UPPER EXTREMITIES: upper extremities are grossly normal. LOWER EXTREMITIES: No pitting edema. 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: H/o of Substance Abuse, Methadone user, H/O Head injury GCS: 15 Pupils: Pinpoint, reactive Focal Signs: None Continue Narcan drip ( Titrate down) Hold Methadone secondary to QT prolongation CT head dated 08/24/17: Result : no intracranial abnormality Respiratory: Possible Sleep Apnea: Chest X-ray: Reviewed: Will need Sleep study following discharge and f/u with Pulmonology Cardiovascular: Prolonged QT stable Rhythm: Sinus EKG: NS, QTc 559 ,Prolonged QT likely secondary to h/o methadone use Echo report 2013: LV wall Normal, EF 60-65%, Grossly normal valves, Valves not well visualized Fluids/Renal: BROOKS , Hyperkalemia, Hypernatremia BROOKS: likely Prerenal, Cr trending down with IV fluids Hyperkalemia: decreased with Insulin infusion, Given 60meq KCl PO Hypernatremia: 154<--153, Start LR D/C Normosol Check BMP's q6 GI/Nutrition: Feeding: Start ADA Diet Prophylaxis: Protonix Endocrine: T2DM poorly controlled, [facility] glucose trend: 1152-->909-->642-->-->-->207 -->288 Insulin protocol: Yes; Drip: Yes Hematology: Factor V Leiden, Hx Of DVT's Factor V Leiden, Hx Of DVT's: restart Xarelto Hemoglobin: 16.8 DVT prophylaxis: Continue Xarelto 15 mg daily , D/C Heparin Infectious Disease/Immunology: Afebrile Tmax: 37.0 Leukocytosis likely stress demargination in setting of HONK Hep C Neg. F/u HIV Blood cx pending Resident Physician Supervision Note: Dr. Mckeon was resident physician during care of patient. I separately evaluated patient and did history and exam. I discussed the case with the resident and generally agree with the findings and plan. The patient status has continued to improve in last 24 hours and will discontinue the Narcan drip today. Still at risk for over an re-sedation as his QTc is still significantly prolonged believe he is still clearing methadone metabolites. There is been improvement in the patient's hyperglycemic status however there is still a significant free water deficit patient's serum sodium corrected yesterday was 163, and in the last 24 hours is now decreased to 156. He was being volume expanded with Normosol, I have changed that to LR which has a sodium content of 130 mEq per liter. I am happy with his sodium correction, and wouldn't tend to be more aggressive with free water repletion tomorrow giving his brain time to adjust to the sodium and osmolar fluid changes. Currently I estimate his free water deficit is roughly 10 L. I would encourage him to take free water orally and allow his body to correct itself. Patient is still rather somnolent being off the Narcan therefore we will keep him in the ICU for close observation. I have personally spent 45 minutes of critical care time in the direct management of this patient. This is a life/limb threatening event. This includes time spent evaluating patient, direct bedside care, chart review, placing orders, interpretation of diagnostic studies, discussion with consultants, patient, and family members, as well as other required patient management activities. This time is exclusive of all separately billable procedures, and teaching time and separate from and in addition to any other critical care service time. Documented By: Jorge Schroeder DO Consults & Procedures Consultants: Nephrology Procedures: ULTRASOUND BILATERAL LOWER EXTREMITY VENOUS CLINICAL HISTORY: Fall. Leg pain. Factor V Leiden deficiency. COMPARISON STUDY: Bilateral lower extremity venous ultrasound dated 11/29/2013. TECHNIQUE: Real-time, grayscale, and color Doppler sonography of the deep veins of the right and left lower extremity was performed from the inguinal crease to the calf. Compression and augmentation were utilized. FINDINGS: There is no sonographic evidence of deep venous thrombosis identified in the right or left lower extremity. The common femoral, superficial femoral, and popliteal veins are patent and normally compressible bilaterally. The greater saphenous vein and the profunda femoris vein at the junction with the common femoral vein are clear in both legs. The visualized calf veins are patent bilaterally. IMPRESSION: There is no sonographic evidence of deep venous thrombosis identified in the right or left lower extremity. (CHEST FOR PE) ANGIO WITH CT DOSE: 736.89 mGy.cm HISTORY: Chest pain dyspnea TECHNIQUE: Multiaxial CT images of the chest were performed following the intravenous administration of contrast to evaluate the pulmonary arteries. Maximal intensity projection images were also obtained. A dose lowering technique was utilized adhering to the principles of ALARA. COMPARISON STUDY: 10/08/2014 FINDINGS: There is a normal caliber thoracic aorta with no evidence for dissection. There is no evidence for pulmonary embolus. No pleural effusions. No pneumothorax. The liver and spleen are unremarkable. No mediastinal or hilar lymphadenopathy. The central airways are patent. The lungs are clear. Mild peribronchial thickening throughout both hemithoraces. Fatty infiltration of liver. IMPRESSION: 1. Study is negative for pulmonary embolus. 2. Lungs are clear. 3. Mild peribronchial thickening bilaterally. 4. Fatty infiltration of liver CHEST ONE VIEW PORTABLE CLINICAL HISTORY: Pt c/o hypoxia dyspnea COMPARISON STUDY: 10/08/2014 FINDINGS: Minimal bibasilar plaque atelectasis IMPRESSION: Minimal basilar atelectasis. Otherwise negative study. Data Medications: Current Inpatient Medications Medications (Trade) Dose Ordered Sig/Ehsan Route Start Time Stop Time Status Last Admin Dose Admin Ioversol (Optiray 320) 100 ml UD PRN IV 08/24/17 12:45 08/28/17 12:44 Miscellaneous Information (Consult Glycemic Management Pharmacy) 1 ea UD PRN N/A 08/24/17 14:15 12/22/17 14:14 Insulin Human Regular 250 units/ Sodium Chloride 252.5 ml @ 0 mls/hr Q24H IV 08/24/17 15:00 08/28/17 23:59 08/24/17 19:57 7.8 MLS/HR Insulin Aspart (novoLOG ASPART) SLIDING SCALE PCHS SC 08/24/17 17:15 09/23/17 18:59 08/25/17 09:39 12 UNITS Glucose (Glucose 40% Gel) UD PRN PO 08/24/17 14:45 09/23/17 14:44 Glucose (Glucose Chew Tab) 1 tabs UD PRN PO 08/24/17 14:45 09/23/17 14:44 Dextrose (Dextrose 50% 50ML Syringe) 50 ml UD PRN IV 08/24/17 14:45 09/23/17 14:44 Glucagon (Glucagon Inj) 1 mg UD PRN SQ 08/24/17 14:45 09/23/17 14:44 Acetaminophen (Tylenol Tab) 650 mg Q4H PRN PO 08/24/17 14:45 09/23/17 14:44 Pantoprazole Sodium 40 mg/ Syringe 10 ml @ 5 mls/min DAILY@1100 IV 08/25/17 11:00 09/24/17 10:59 08/25/17 10:35 5 MLS/MIN Naloxone HCl 5 mg/ Sodium Chloride 112.5 ml @ 5 mls/hr [id number] IV 08/24/17 16:45 09/23/17 16:44 08/25/17 02:16 5 MLS/HR Rivaroxaban (Xarelto Tab) 15 mg DAILY PO 08/25/17 09:00 09/24/17 08:59 08/25/17 07:59 15 MG Lactated Ringer's 1,000 ml @ 150 mls/hr Q6H40M IV 08/25/17 10:30 09/24/17 10:29 08/25/17 10:42 150 MLS/HR Vital Signs: Date Time Temp Pulse Resp B/P (MAP) Pulse Ox O2 Delivery O2 Flow Rate FiO2 08/25/17 10:00 82 14 116/90 (99) 92 Nasal Cannula 4.0 08/25/17 08:00 94 Nasal Cannula 4.0 08/25/17 08:00 36.6 87 16 144/96 (112) 94 Nasal Cannula 4.0 08/25/17 06:01 87 18 140/78 (108) 92 08/25/17 04:24 36.9 96 14 118/84 (97) 93 08/25/17 04:00 93 Nasal Cannula 08/25/17 02:01 90 17 133/86 (98) 94 08/25/17 01:01 90 22 113/90 (102) 92 08/25/17 00:01 36.5 90 24 133/87 (95) 93 08/24/17 23:59 93 Nasal Cannula 08/24/17 22:30 91 27 137/96 (104) 91 08/24/17 20:15 91 27 137/96 (104) 91 08/24/17 20:02 93 19 72/44 (66) 96 08/24/17 20:00 91 4.0 08/24/17 20:00 93 18 94 08/24/17 19:01 94 26 138/91 (110) 94 08/24/17 19:00 95 22 08/24/17 18:01 96 25 131/96 (105) 90 08/24/17 18:00 95 20 91 08/24/17 17:01 96 22 120/79 (101) 92 08/24/17 17:00 96 20 90 08/24/17 16:38 94 17 136/97 (111) 92 08/24/17 16:34 36.7 101 23 144/86 92 4.0 08/24/17 16:02 101 157/107 94 08/24/17 15:36 97 157/107 (112) 92 08/24/17 15:00 97 93 08/24/17 14:31 100 19 118/88 (109) 90 08/24/17 14:13 97 08/24/17 14:02 98 23 149/96 95 Nasal Cannula 4.0 08/24/17 14:02 99 24 149/96 (102) 91 08/24/17 14:01 97 25 153/100 (131) 92 08/24/17 14:00 96 26 93 08/24/17 13:10 98 130/96 90 Nasal Cannula 4.0 08/24/17 12:35 96 149/83 93 Room Air 08/24/17 11:29 104 08/24/17 11:27 102 156/115 90 Nasal Cannula 4.0 Laboratory Results: Last 24 Hours Test 08/24/17 11:30 08/24/17 11:55 08/24/17 13:54 08/24/17 13:59 White Blood Count 13.21 K/uL Red Blood Count 6.08 M/uL Hemoglobin 19.2 g/dL Hematocrit 60.0 % Mean Corpuscular Volume 98.7 fL Mean Corpuscular Hemoglobin 31.6 pg Mean Corpuscular Hemoglobin Concent 32.0 g/dl Platelet Count 191 K/uL Mean Platelet Volume 12.9 fL Neutrophils (%) (Auto) 70.1 % Lymphocytes (%) (Auto) 19.8 % Monocytes (%) (Auto) 9.4 % Eosinophils (%) (Auto) 0.2 % Basophils (%) (Auto) 0.2 % Neutrophils # (Auto) 9.28 K/uL Lymphocytes # (Auto) 2.61 K/uL Monocytes # (Auto) 1.24 K/uL Eosinophils # (Auto) 0.02 K/uL Basophils # (Auto) 0.02 K/uL RDW Standard Deviation 49.8 fL RDW Coefficient of Variation 13.7 % Immature Granulocyte % (Auto) 0.3 % Immature Granulocyte # (Auto) 0.04 K/uL Sodium Level 138 mmol/L Potassium Level mmol/L Chloride Level 96 mmol/L Carbon Dioxide Level mmol/L Anion Gap mmol/L Blood Urea Nitrogen 39 mg/dl Creatinine 2.13 mg/dl Est Creatinine Clear Calc Drug Dose 66.1 ml/min Estimated GFR () 42.3 Estimated GFR (Non- 36.5 BUN/Creatinine Ratio 18.5 Random Glucose 1152 mg/dl Estimated Average Glucose 435 mg/dl Hemoglobin A1c 16.8 % Calcium Level 9.9 mg/dl Total Bilirubin 0.8 mg/dl Aspartate Amino Transf (AST/SGOT) U/L Alanine Aminotransferase (ALT/SGPT) 265 U/L Alkaline Phosphatase 145 U/L Total Protein 9.2 gm/dl Albumin 3.9 gm/dl Globulin 5.3 gm/dl Albumin/Globulin Ratio 0.7 Beta-Hydroxybutyric Acid mg/dL Urine Color YELLOW Urine Appearance CLEAR Urine pH 5.0 Urine Specific [place] 1.042 Urine Protein NEG Urine Glucose (UA) 3+ Urine Ketones TRACE Urine Occult Blood NEG Urine Nitrite NEG Urine Bilirubin NEG Urine Urobilinogen NEG Urine Leukocyte Esterase NEG Urine Opiates Screen NEG Urine Methadone, Qualitative POS Urine Barbiturates NEG Urine Phencyclidine (PCP) Level NEG Ur Amphetamine/Methamphetamine NEG MDMA (Ecstasy) Screen NEG Urine Benzodiazepines Screen NEG Urine Cocaine Metabolite NEG Urine Marijuana (THC) NEG Prothrombin Time 11.1 SECONDS Prothromb Time International Ratio 1.0 Activated Partial Thromboplast Time 20.6 SECONDS Partial Thromboplastin Ratio 0.8 Bedside Glucose > 600 mg/dl Test 08/24/17 14:06 08/24/17 14:10 08/24/17 14:25 08/24/17 16:40 Sodium Level 144 mmol/L Potassium Level 5.1 mmol/L Chloride Level 100 mmol/L Carbon Dioxide Level 34 mmol/L Anion Gap 10.0 mmol/L 19.0 mmol/L Blood Urea Nitrogen 39 mg/dl Creatinine 1.70 mg/dl Est Creatinine Clear Calc Drug Dose 82.8 ml/min Estimated GFR () 55.6 Estimated GFR (Non- 48.0 BUN/Creatinine Ratio 23.1 Random Glucose 909 mg/dl Calcium Level 10.1 mg/dl Phosphorus Level 7.1 mg/dl Magnesium Level 3.2 mg/dl Total Creatine Kinase 268 U/L Creatine Kinase MB 2.2 ng/ml Creatine Kinase MB Ratio 0.8 Troponin I < 0.015 ng/ml Lipase 305 U/L Beta-Hydroxybutyric Acid 19.26 mg/dL Thyroid Stimulating Hormone (TSH) 0.096 uIu/ml Bedside Hemoglobin 19.0 g/dl Bedside Hematocrit 56 % Bedside Sodium 147 mEq/L Bedside Potassium 5.2 mEq/L Bedside Chloride 101 mEq/L Bedside Total CO2 33 mEq/l Bedside Blood Urea Nitrogen 38 mg/dl Bedside Creatinine 1.2 mg/dl Bedside Glucose (other) > 700 mg/dl Bedside Ionized Calcium (Michel) 1.24 mmol/l Arterial Blood pH 7.35 Arterial Blood Partial Pressure CO2 64 mmHg Arterial Blood Partial Pressure O2 64 mm/Hg Arterial Blood HCO3 35 mmol/L Arterial Blood Oxygen Saturation 90.3 % Arterial Blood Base Excess 6.1 mEq/L Arterial Blood Gas Delivery 4L Salazar Test POS Lactic Acid Level 1.7 mmol/L Test 08/24/17 17:58 08/24/17 19:49 08/24/17 20:35 08/24/17 21:33 Sodium Level 150 mmol/L Potassium Level 3.8 mmol/L Chloride Level 110 mmol/L Carbon Dioxide Level 33 mmol/L Anion Gap 7.0 mmol/L Blood Urea Nitrogen 33 mg/dl Creatinine 1.47 mg/dl Est Creatinine Clear Calc Drug Dose 95.7 ml/min Estimated GFR () 66.3 Estimated GFR (Non- 57.2 BUN/Creatinine Ratio 22.4 Random Glucose 642 mg/dl Calcium Level 9.7 mg/dl Phosphorus Level 4.9 mg/dl Magnesium Level 2.9 mg/dl Beta-Hydroxybutyric Acid 8.84 mg/dL Procalcitonin 0.27 ng/ml Ethyl Alcohol mg/dL < 3.0 mg/dl D-Dimer 560 ug/L FEU Venous Blood pH 7.39 Bedside Glucose 554 mg/dl 412 mg/dl Test 08/24/17 22:36 08/24/17 22:40 08/24/17 23:02 08/24/17 23:27 Bedside Glucose 349 mg/dl 299 mg/dl Creatine Kinase MB Ratio 0.5 Venous Blood pH 7.39 Sodium Level 153 mmol/L Potassium Level 3.6 mmol/L Chloride Level 112 mmol/L Carbon Dioxide Level 38 mmol/L Anion Gap 3.0 mmol/L Blood Urea Nitrogen 27 mg/dl Creatinine 1.30 mg/dl Est Creatinine Clear Calc Drug Dose 108.2 ml/min Estimated GFR () 76.9 Estimated GFR (Non- 66.4 BUN/Creatinine Ratio 20.8 Random Glucose 346 mg/dl Calcium Level 9.7 mg/dl Phosphorus Level 2.8 mg/dl Magnesium Level 2.8 mg/dl Total Creatine Kinase 319 U/L Creatine Kinase MB 1.7 ng/ml Troponin I < 0.015 ng/ml Beta-Hydroxybutyric Acid 1.66 mg/dL Hepatitis C Antibody NEG Test 08/25/17 00:29 08/25/17 01:38 08/25/17 01:54 08/25/17 02:12 Bedside Glucose 246 mg/dl 180 mg/dl 198 mg/dl 196 mg/dl Test 08/25/17 02:30 08/25/17 03:03 08/25/17 04:02 08/25/17 05:10 Bedside Glucose 207 mg/dl 220 mg/dl 217 mg/dl 211 mg/dl White Blood Count 11.92 K/uL Red Blood Count 5.41 M/uL Hemoglobin 16.8 g/dL Hematocrit 51.3 % Mean Corpuscular Volume 94.8 fL Mean Corpuscular Hemoglobin 31.1 pg Mean Corpuscular Hemoglobin Concent 32.7 g/dl Platelet Count 152 K/uL Mean Platelet Volume 11.6 fL Neutrophils (%) (Auto) 61.8 % Lymphocytes (%) (Auto) 29.0 % Monocytes (%) (Auto) 6.8 % Eosinophils (%) (Auto) 1.8 % Basophils (%) (Auto) 0.3 % Neutrophils # (Auto) 7.38 K/uL Lymphocytes # (Auto) 3.46 K/uL Monocytes # (Auto) 0.81 K/uL Eosinophils # (Auto) 0.21 K/uL Basophils # (Auto) 0.03 K/uL RDW Standard Deviation 47.2 fL RDW Coefficient of Variation 13.7 % Immature Granulocyte % (Auto) 0.3 % Immature Granulocyte # (Auto) 0.03 K/uL Venous Blood pH 7.39 Sodium Level 154 mmol/L Potassium Level 3.8 mmol/L Chloride Level 112 mmol/L Carbon Dioxide Level 38 mmol/L Anion Gap 4.0 mmol/L Blood Urea Nitrogen 26 mg/dl Creatinine 1.18 mg/dl Est Creatinine Clear Calc Drug Dose 119.2 ml/min Estimated GFR () 86.5 Estimated GFR (Non- 74.6 BUN/Creatinine Ratio 22.1 Random Glucose 245 mg/dl Calcium Level 9.2 mg/dl Phosphorus Level 2.8 mg/dl Magnesium Level 2.6 mg/dl Total Creatine Kinase 321 U/L Creatine Kinase MB 1.7 ng/ml Creatine Kinase MB Ratio 0.5 Troponin I 0.016 ng/ml Lipase 140 U/L Test 08/25/17 05:58 08/25/17 08:01 08/25/17 08:17 08/25/17 08:42 Bedside Glucose 217 mg/dl 185 mg/dl 189 mg/dl Venous Blood pH 7.37 Sodium Level 156 mmol/L Potassium Level 3.6 mmol/L Chloride Level 113 mmol/L Carbon Dioxide Level 38 mmol/L Anion Gap 4.0 mmol/L Blood Urea Nitrogen 24 mg/dl Creatinine 1.19 mg/dl Est Creatinine Clear Calc Drug Dose 118.5 ml/min Estimated GFR () 85.6 Estimated GFR (Non- 73.8 BUN/Creatinine Ratio 19.9 Random Glucose 207 mg/dl Calcium Level 9.0 mg/dl Phosphorus Level 2.4 mg/dl Magnesium Level 2.7 mg/dl Total Bilirubin 0.5 mg/dl Direct Bilirubin 0.1 mg/dl Aspartate Amino Transf (AST/SGOT) 59 U/L Alanine Aminotransferase (ALT/SGPT) 164 U/L Alkaline Phosphatase 98 U/L Total Protein 6.7 gm/dl Albumin 2.9 gm/dl Test 08/25/17 10:06 Bedside Glucose 270 mg/dl Resident Tracking Resident Involvement: Resident Care Provided Care Provided: Adult Hospital Medicine
[2017-08-25 12:24] LABS: BUN/CREATININE RATIO 21.2 (10-20); CALCIUM 8.7 mg/dl (8.5-10.1); CREATININE 1.17 mg/dl (0.60-1.40); MAGNESIUM 2.5 mg/dl (1.8-2.4); PHOSPHORUS 2.2 mg/dl (2.5-4.9); POTASSIUM 3.9 mmol/L (3.5-5.1)
[2017-08-25] MEDS: INSULIN REGULAR 250 UNITS in SODIUM CHLORIDE 0.9% 250ML 250 ML IV SCH (15:07)
[2017-08-25 18:23] LABS: BUN/CREATININE RATIO 22.3 (10-20); CALCIUM 8.5 mg/dl (8.5-10.1); CREATININE 1.02 mg/dl (0.60-1.40); POTASSIUM 3.7 mmol/L (3.5-5.1)
[2017-08-25] MEDS ORDERED: INSULIN GLARGINE SOLOSTAR 100 UNITS/ML 3 ML PEN SC SCH (18:30)
[2017-08-26] VITALS (12 sets, daily range): BP systolic 99–147; BP diastolic 56–82; PULSE 71–89; TEMP 36.5–37.5; O2SAT 91–96
[2017-08-26 00:58] LABS: BUN/CREATININE RATIO 19.6 (10-20); CALCIUM 8.1 mg/dl (8.5-10.1); CREATININE 1.05 mg/dl (0.60-1.40); POTASSIUM 3.6 mmol/L (3.5-5.1)
[2017-08-26] MEDS ORDERED: POTASSIUM CHLORIDE 20 MEQ TABCR PO STA (01:13)
[2017-08-26] MEDS: LACTATED RINGER'S 1000ML 1,000 ML IV SCH (01:36)
[2017-08-26 06:58] LABS: BUN/CREATININE RATIO 21.5 (10-20); CALCIUM 8.3 mg/dl (8.5-10.1); CREATININE 0.91 mg/dl (0.60-1.40); MAGNESIUM 2.3 mg/dl (1.8-2.4); POTASSIUM 3.8 mmol/L (3.5-5.1)
[2017-08-26 07:01] LABS: PHOSPHORUS 2.3 mg/dl (2.5-4.9)
[2017-08-26] MEDS ORDERED: NURSING VERBAL MED ORDER ONE (07:15)
[2017-08-26 07:22] LABS: BASO % 0.2 %; BASO ABS # 0.02 K/uL (0-0.2); COMPLETE YES; EOS % 3.7 %; HEMATOCRIT 44.4 % (42-52); IG% 0.2 %; LYMPH % 41.3 %; LYMPH ABS # 3.44 K/uL (1.2-3.4); MEAN CELL VOLUME 95.1 fL (80-100); MEAN CORPUSCULAR HEMOGLOBIN 29.6 pg (25-34); MEAN CORPUSCULAR HGB CONC 31.1 g/dl (32-36); MEAN PLATELET VOLUME 12.1 fL (7.4-10.4); MONO % 6.3 %; NEUT % 48.3 %; PLATELET COUNT 109 K/uL (130-400); RED BLOOD COUNT 4.67 M/uL (4.7-6.1); WHITE BLOOD COUNT 8.32 K/uL (4.8-10.8)
[2017-08-26] MEDS: INSULIN ASPART 100 UNITS/ML 3 ML PEN SC SCH ×4 (08:00→22:13)
[2017-08-26] MEDS: RIVAROXABAN TAB 15 MG TAB PO SCH (08:01)
[2017-08-26] MEDS: INSULIN GLARGINE SOLOSTAR 100 UNITS/ML 3 ML PEN SC SCH ×2 (08:30→17:05)
--- NOTE | 2017-08-26 11:50 | Critical Care Progress Note ---
Critical Care Progress Note Date of Service Aug 26, 2017. ICU Day ICU Day Number: [address] Schroeder Subjective No acute events overnight. Patient has no complaint. No fatigue weakness, n/v, abdominal pain , CP, palpitation, SOB Objective GENERAL: alert, well appearing, no distress, non-toxic EYE EXAM: normal conjunctiva, PERRL and EOM's grossly intact NECK: supple, no nuchal rigidity, no adenopathy, non-tender LUNGS: Clear to auscultation. Normal chest wall mechanics HEART: no murmurs, S1 normal and S2 normal ABDOMEN: abdomen soft, non-tender, normo-active bowel sounds, no masses UPPER EXTREMITIES: upper extremities are grossly normal. LOWER EXTREMITIES: No pitting edema. 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: H/o of Substance Abuse, Methadone user, H/O Head injury GCS: 15 Pupils: Pinpoint, reactive Focal Signs: None Narcan drip off Hold Methadone secondary to QT prolongation CT head dated 08/24/17: Result : no intracranial abnormality Respiratory: Possible Sleep Apnea: Chest X-ray: Reviewed: Will need Sleep study following discharge and f/u with Pulmonology Cardiovascular: Prolonged QT stable Rhythm: Sinus EKG: NS, QTc 524 ,NO significant changed from previous .Prolonged QT likely secondary to h/o methadone use Echo report 2013: LV wall Normal, EF 60-65%, Grossly normal valves, Valves not well visualized Fluids/Renal: BROOKS , Hyperkalemia, Hypernatremia, BROOKS: likely prerenal, now resolved with fluids Hyperkalemia: resolved Hypernatremia: Corrected Na 151, trending down in general LR stopped overnight, Free water deficit:6.9 L , Replete orally today Check BMP's GI/Nutrition: Feeding: ADA Diet Prophylaxis: Protonix Endocrine: T2DM poorly controlled, [facility] glucose trend: 1152-->909-->642-->-->-->207 -->288 Insulin protocol: Yes; Drip: Yes Hematology: Factor V Leiden, Hx Of DVT's Factor V Leiden, Hx Of DVT's: restart Xarelto Hemoglobin: 13.8 DVT prophylaxis: Continue Xarelto 15 mg daily Infectious Disease/Immunology: Afebrile Tmax: 37.0 Leukocytosis likely stress demargination in setting of [facility] Hep C Neg. F/u HIV Blood NGTD HIV, Hep C neg .Resident Physician Supervision Note: Dr. Mckeon was resident physician during care of patient. I separately evaluated patient and did history and exam. I discussed the case with the resident and generally agree with the findings and plan. increased lantus dosing. continued insulin infusion. Documented By: Jorge Schroeder DO Consults & Procedures Consultants: Nephrology Procedures: ULTRASOUND BILATERAL LOWER EXTREMITY VENOUS CLINICAL HISTORY: Fall. Leg pain. Factor V Leiden deficiency. COMPARISON STUDY: Bilateral lower extremity venous ultrasound dated 11/29/2013. TECHNIQUE: Real-time, grayscale, and color Doppler sonography of the deep veins of the right and left lower extremity was performed from the inguinal crease to the calf. Compression and augmentation were utilized. FINDINGS: There is no sonographic evidence of deep venous thrombosis identified in the right or left lower extremity. The common femoral, superficial femoral, and popliteal veins are patent and normally compressible bilaterally. The greater saphenous vein and the profunda femoris vein at the junction with the common femoral vein are clear in both legs. The visualized calf veins are patent bilaterally. IMPRESSION: There is no sonographic evidence of deep venous thrombosis identified in the right or left lower extremity. (CHEST FOR PE) ANGIO WITH CT DOSE: 736.89 mGy.cm HISTORY: Chest pain dyspnea TECHNIQUE: Multiaxial CT images of the chest were performed following the intravenous administration of contrast to evaluate the pulmonary arteries. Maximal intensity projection images were also obtained. A dose lowering technique was utilized adhering to the principles of ALARA. COMPARISON STUDY: 10/08/2014 FINDINGS: There is a normal caliber thoracic aorta with no evidence for dissection. There is no evidence for pulmonary embolus. No pleural effusions. No pneumothorax. The liver and spleen are unremarkable. No mediastinal or hilar lymphadenopathy. The central airways are patent. The lungs are clear. Mild peribronchial thickening throughout both hemithoraces. Fatty infiltration of liver. IMPRESSION: 1. Study is negative for pulmonary embolus. 2. Lungs are clear. 3. Mild peribronchial thickening bilaterally. 4. Fatty infiltration of liver CHEST ONE VIEW PORTABLE CLINICAL HISTORY: Pt c/o hypoxia dyspnea COMPARISON STUDY: 10/08/2014 FINDINGS: Minimal bibasilar plaque atelectasis IMPRESSION: Minimal basilar atelectasis. Otherwise negative study. Data Medications: Current Inpatient Medications Medications (Trade) Dose Ordered Sig/Ehsan Route Start Time Stop Time Status Last Admin Dose Admin Ioversol (Optiray 320) 100 ml UD PRN IV 08/24/17 12:45 08/28/17 12:44 Miscellaneous Information (Consult Glycemic Management Pharmacy) 1 ea UD PRN N/A 08/24/17 14:15 09/23/17 14:14 Insulin Human Regular 250 units/ Sodium Chloride 252.5 ml @ 0 mls/hr Q24H IV 08/24/17 15:00 08/28/17 23:59 08/25/17 15:07 7 MLS/HR Insulin Aspart (novoLOG ASPART) SLIDING SCALE PCHS SC 08/24/17 17:15 09/23/17 18:59 08/26/17 08:00 9 UNITS Glucose (Glucose 40% Gel) UD PRN PO 08/24/17 14:45 09/23/17 14:44 Glucose (Glucose Chew Tab) 1 tabs UD PRN PO 08/24/17 14:45 09/23/17 14:44 Dextrose (Dextrose 50% 50ML Syringe) 50 ml UD PRN IV 08/24/17 14:45 09/23/17 14:44 Glucagon (Glucagon Inj) 1 mg UD PRN SQ 08/24/17 14:45 09/23/17 14:44 Acetaminophen (Tylenol Tab) 650 mg Q4H PRN PO 08/24/17 14:45 09/23/17 14:44 Rivaroxaban (Xarelto Tab) 15 mg DAILY PO 08/25/17 09:00 09/24/17 08:59 08/26/17 08:01 15 MG Insulin Glargine (Lantus Solostar Pen) 80 units BID SC 08/26/17 09:00 09/24/17 18:29 08/26/17 08:30 80 UNITS Vital Signs: Date Time Temp Pulse Resp B/P (MAP) Pulse Ox O2 Delivery O2 Flow Rate FiO2 08/26/17 10:00 89 22 93 Room Air 08/26/17 08:00 36.7 81 18 99/72 (81) 91 Room Air 08/26/17 08:00 91 Room Air 08/26/17 06:01 76 20 122/56 (78) 94 Room Air 08/26/17 04:01 36.8 71 18 114/66 (82) 92 Nasal Cannula 4.0 08/26/17 04:00 93 Nasal Cannula 4.0 08/26/17 02:01 73 18 122/68 (86) 96 Nasal Cannula 4.0 08/26/17 00:02 36.9 83 16 122/74 (90) 92 4.0 08/25/17 23:59 93 Nasal Cannula 4.0 08/25/17 22:00 77 18 128/76 (93) 93 Nasal Cannula 4.0 08/25/17 20:00 94 Nasal Cannula 40.0 08/25/17 20:00 36.8 83 18 132/81 (98) 94 Nasal Cannula 4.0 08/25/17 18:00 89 18 123/91 (102) 93 Nasal Cannula 4.0 08/25/17 16:00 36.8 82 16 110/67 (81) 93 Nasal Cannula 4.0 08/25/17 16:00 93 Nasal Cannula 4.0 08/25/17 14:00 84 16 103/82 (89) 92 Nasal Cannula 4.0 08/25/17 12:00 92 Nasal Cannula 4.0 08/25/17 12:00 37.0 85 16 99/69 (79) 92 Nasal Cannula 4.0 Laboratory Results: Last 24 Hours Test 08/25/17 11:58 08/25/17 12:15 08/25/17 13:02 08/25/17 13:39 Venous Blood pH 7.39 Sodium Level 151 mmol/L Potassium Level 3.9 mmol/L Chloride Level 112 mmol/L Carbon Dioxide Level 37 mmol/L Anion Gap 3.0 mmol/L Blood Urea Nitrogen 25 mg/dl Creatinine 1.17 mg/dl Est Creatinine Clear Calc Drug Dose 120.5 ml/min Estimated GFR () 87.4 Estimated GFR (Non- 75.4 BUN/Creatinine Ratio 21.2 Random Glucose 288 mg/dl Calcium Level 8.7 mg/dl Phosphorus Level 2.2 mg/dl Magnesium Level 2.5 mg/dl Bedside Glucose 332 mg/dl 275 mg/dl HIV (1&2) Ab and P24 Ag, 4th Gener NEG Test 08/25/17 13:57 08/25/17 15:02 08/25/17 16:02 08/25/17 17:00 Bedside Glucose 375 mg/dl 201 mg/dl 195 mg/dl 183 mg/dl Test 08/25/17 17:50 08/25/17 18:22 08/25/17 19:27 08/25/17 20:27 Sodium Level 149 mmol/L Potassium Level 3.7 mmol/L Chloride Level 111 mmol/L Carbon Dioxide Level 35 mmol/L Anion Gap 3.0 mmol/L Blood Urea Nitrogen 23 mg/dl Creatinine 1.02 mg/dl Est Creatinine Clear Calc Drug Dose 138.2 ml/min Estimated GFR () 103.1 Estimated GFR (Non- 89.0 BUN/Creatinine Ratio 22.3 Random Glucose 216 mg/dl Calcium Level 8.5 mg/dl Bedside Glucose 230 mg/dl 214 mg/dl 206 mg/dl Test 08/25/17 21:29 08/25/17 22:26 08/25/17 23:31 08/26/17 00:14 Bedside Glucose 147 mg/dl 218 mg/dl 216 mg/dl Sodium Level 146 mmol/L Potassium Level 3.6 mmol/L Chloride Level 106 mmol/L Carbon Dioxide Level 33 mmol/L Anion Gap 7.0 mmol/L Blood Urea Nitrogen 21 mg/dl Creatinine 1.05 mg/dl Est Creatinine Clear Calc Drug Dose 134.3 ml/min Estimated GFR () 99.6 Estimated GFR (Non- 85.9 BUN/Creatinine Ratio 19.6 Random Glucose 236 mg/dl Calcium Level 8.1 mg/dl Test 08/26/17 00:16 08/26/17 01:39 08/26/17 02:26 08/26/17 03:31 Bedside Glucose 206 mg/dl 204 mg/dl 238 mg/dl 178 mg/dl Test 08/26/17 04:30 08/26/17 05:23 08/26/17 05:35 08/26/17 06:53 Bedside Glucose 191 mg/dl 178 mg/dl 150 mg/dl White Blood Count 8.32 K/uL Red Blood Count 4.67 M/uL Hemoglobin 13.8 g/dL Hematocrit 44.4 % Mean Corpuscular Volume 95.1 fL Mean Corpuscular Hemoglobin 29.6 pg Mean Corpuscular Hemoglobin Concent 31.1 g/dl Platelet Count 109 K/uL Mean Platelet Volume 12.1 fL Neutrophils (%) (Auto) 48.3 % Lymphocytes (%) (Auto) 41.3 % Monocytes (%) (Auto) 6.3 % Eosinophils (%) (Auto) 3.7 % Basophils (%) (Auto) 0.2 % Neutrophils # (Auto) 4.01 K/uL Lymphocytes # (Auto) 3.44 K/uL Monocytes # (Auto) 0.52 K/uL Eosinophils # (Auto) 0.31 K/uL Basophils # (Auto) 0.02 K/uL RDW Standard Deviation 46.7 fL RDW Coefficient of Variation 13.5 % Immature Granulocyte % (Auto) 0.2 % Immature Granulocyte # (Auto) 0.02 K/uL Sodium Level 149 mmol/L Potassium Level 3.8 mmol/L Chloride Level 111 mmol/L Carbon Dioxide Level 34 mmol/L Anion Gap 4.0 mmol/L Blood Urea Nitrogen 20 mg/dl Creatinine 0.91 mg/dl Est Creatinine Clear Calc Drug Dose 156.1 ml/min Estimated GFR () 118.4 Estimated GFR (Non- 102.1 BUN/Creatinine Ratio 21.5 Random Glucose 190 mg/dl Calcium Level 8.3 mg/dl Phosphorus Level 2.3 mg/dl Magnesium Level 2.3 mg/dl Total Bilirubin 0.5 mg/dl Direct Bilirubin 0.1 mg/dl Aspartate Amino Transf (AST/SGOT) 61 U/L Alanine Aminotransferase (ALT/SGPT) 121 U/L Alkaline Phosphatase 80 U/L Total Protein 5.7 gm/dl Albumin 2.5 gm/dl Lipase 100 U/L Test 08/26/17 07:55 08/26/17 09:05 08/26/17 10:05 08/26/17 11:07 Bedside Glucose 250 mg/dl 224 mg/dl 183 mg/dl 166 mg/dl
--- NOTE | 2017-08-26 12:26 | PROGRESS NOTE ---
DATE: 08/26/2017 REASON FOR CONSULT: Acute renal failure in the setting of extremely elevated blood glucose and multiple electrolyte issues. HISTORY OF PRESENT ILLNESS: He is making very good improvement. He now has normal glucose and normal kidney function and he looks much better and he feels better. He is still in the ICU but he is in the process of being transferred to the regular floor. Urine output yesterday was 1250 mL. PHYSICAL EXAMINATION: GENERAL: He is awake, alert, oriented x3. HEENT: Mucous membrane is moist. NECK: Supple. No jugular venous distention. VITAL SIGNS: Most recent blood pressure is 99/72, 93% on room air, pulse rate 89 per minute, temperature 36.7. CHEST: Bilateral clear to auscultation. CARDIOVASCULAR: S1 and S2, regular. ABDOMEN: Soft, nontender. EXTREMITIES: Shows 1+ edema with chronic venous stasis skin changes. LABORATORY DATA: Sodium 149, potassium 3.8, chloride 111, BUN 20, creatinine 0.91, calcium of 8.3. ASSESSMENT AND PLAN: 1. Acute renal failure resolved. It was prerenal secondary to extremely high glucose and associated osmotic diuresis. 2. Electrolyte imbalance. Most of the electrolytes are significantly better. Sodium is now down to 149 from 154. This will continue to get better. Fluid management is being addressed by critical care. At this point, I will sign out from the case. TAYLOR
[2017-08-26 12:45] LABS: BUN/CREATININE RATIO 19.3 (10-20); CALCIUM 8.3 mg/dl (8.5-10.1); CREATININE 0.93 mg/dl (0.60-1.40); POTASSIUM 3.5 mmol/L (3.5-5.1)
--- NOTE | 2017-08-26 14:36 | Pharmacy Progress Note ---
Pharmacy Glycemic Short Note 2 Date of Service Aug 26, 2017. OUTPATIENT ANTIDIABETIC REGIMEN: * Metformin 1000mg PO daily * HbA1c 16.8% (08/24/17) ASSESSMENT: * Mr Blake is a 42yo diabetic male, admitted with HHS (BSG 1152mg/dL). * Patient has required IV insulin infusion at high rates since admission. * Lantus initiated last evening in an attempt to transition off of IV insulin. * Even with Lantus on board, insulin infusion continues at rates of ~5-7 units/ hr. Will continue to overlap insulin gtt with Lantus until gtt "turns itself off" via insulin infusion adjustment calculator. * Reportedly, patient "grazes" on food intermittently throughout the day, which makes it difficult to adequately cover his carb intake. * Patient is in need of a great deal of education and support in terms of glycemic management. Current A1c is extremely elevated. CDE consult in place. PLAN FOR INPATIENT GLYCEMIC CONTROL: * Hold outpatient oral diabetes medications * Consider resuming in the next few days. * Patient rec'd IV contrast and was admitted with BROKOS * Basal insulin * Lantus 80 units SQ BID * Bolus insulin * NovoLog per scale ACHS or Q6hrs while NPO * Goal Range: Low 120 mg/dL - High 190 mg/dL * Correction/Prandial coverage per insulin infusion adjustment calculator ( until gtt d/c'd) PLAN FOR DISCHARGE: * Current A1c (16.8%) indicates incredibly poor glycemic control as an outpatient (estimated average glucose 435mg/dL). * Patient likely requires the addition of insulin at this point. 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 * Patient would greatly benefit from diabetic education and will need to increase self-monitoring with any changes to his glycemic regimen.
[2017-08-26 18:47] LABS: METHADONE METABOLITE 2430 NG/ML (CUTOFF=100); METHADONE VERIFIC 4360 NG/ML (CUTOFF=100)
[2017-08-26 19:28] LABS: BLOOD UREA NITROGEN 19 mg/dl (7-18); BUN/CREATININE RATIO 20.6 (10-20); CALCIUM 7.9 mg/dl (8.5-10.1); CARBON DIOXIDE 29 mmol/L (21-32); CHLORIDE 108 mmol/L (98-107); CREATININE 0.91 mg/dl (0.60-1.40); GLUCOSE 190 mg/dl (70-99); SODIUM 142 mmol/L (136-145)
--- NOTE | 2017-08-26 19:37 | Progress Note ---
Medicine Progress Note Date & Time of Visit: Aug 26, 2017 at ~ 11:00 . Subjective Feels better. Still insulin infusion. Blood sugars improved. Polyuria improved. No chest pain. No cough or shortness of breath. No nausea or vomiting. . Objective Last 8 Hrs Date Time Temp Pulse Resp B/P (MAP) Pulse Ox O2 Delivery O2 Flow Rate FiO2 08/26/17 19:11 36.5 73 18 135/56 (82) 92 Room Air 08/26/17 16:08 93 Room Air 08/26/17 15:34 36.9 72 18 119/80 (93) 94 Room Air 08/26/17 12:00 93 Room Air Physical Exam: General- no distress Eyes- anicteric Neck- no JVD Lungs- clear Heart- RRR, no murmur or gallop Abdomen- + BS, soft, nontender Extremities- trace pretibial edema, no calf tenderness Neuro- alert Skin- chronic venous stasis changes lower extremities; warm & dry . Laboratory Results: Last 24 Hours Test 08/25/17 20:27 08/25/17 21:29 08/25/17 22:26 08/25/17 23:31 Bedside Glucose 206 mg/dl 147 mg/dl 218 mg/dl 216 mg/dl Test 08/26/17 00:14 08/26/17 00:16 08/26/17 01:39 08/26/17 02:26 Sodium Level 146 mmol/L Potassium Level 3.6 mmol/L Chloride Level 106 mmol/L Carbon Dioxide Level 33 mmol/L Anion Gap 7.0 mmol/L Blood Urea Nitrogen 21 mg/dl Creatinine 1.05 mg/dl Est Creatinine Clear Calc Drug Dose 134.3 ml/min Estimated GFR () 99.6 Estimated GFR (Non- 85.9 BUN/Creatinine Ratio 19.6 Random Glucose 236 mg/dl Calcium Level 8.1 mg/dl Bedside Glucose 206 mg/dl 204 mg/dl 238 mg/dl Test 08/26/17 03:31 08/26/17 04:30 08/26/17 05:23 08/26/17 05:35 Bedside Glucose 178 mg/dl 191 mg/dl 178 mg/dl White Blood Count 8.32 K/uL Red Blood Count 4.67 M/uL Hemoglobin 13.8 g/dL Hematocrit 44.4 % Mean Corpuscular Volume 95.1 fL Mean Corpuscular Hemoglobin 29.6 pg Mean Corpuscular Hemoglobin Concent 31.1 g/dl Platelet Count 109 K/uL Mean Platelet Volume 12.1 fL Neutrophils (%) (Auto) 48.3 % Lymphocytes (%) (Auto) 41.3 % Monocytes (%) (Auto) 6.3 % Eosinophils (%) (Auto) 3.7 % Basophils (%) (Auto) 0.2 % Neutrophils # (Auto) 4.01 K/uL Lymphocytes # (Auto) 3.44 K/uL Monocytes # (Auto) 0.52 K/uL Eosinophils # (Auto) 0.31 K/uL Basophils # (Auto) 0.02 K/uL RDW Standard Deviation 46.7 fL RDW Coefficient of Variation 13.5 % Immature Granulocyte % (Auto) 0.2 % Immature Granulocyte # (Auto) 0.02 K/uL Sodium Level 149 mmol/L Potassium Level 3.8 mmol/L Chloride Level 111 mmol/L Carbon Dioxide Level 34 mmol/L Anion Gap 4.0 mmol/L Blood Urea Nitrogen 20 mg/dl Creatinine 0.91 mg/dl Est Creatinine Clear Calc Drug Dose 156.1 ml/min Estimated GFR () 118.4 Estimated GFR (Non- 102.1 BUN/Creatinine Ratio 21.5 Random Glucose 190 mg/dl Calcium Level 8.3 mg/dl Phosphorus Level 2.3 mg/dl Magnesium Level 2.3 mg/dl Total Bilirubin 0.5 mg/dl Direct Bilirubin 0.1 mg/dl Aspartate Amino Transf (AST/SGOT) 61 U/L Alanine Aminotransferase (ALT/SGPT) 121 U/L Alkaline Phosphatase 80 U/L Total Protein 5.7 gm/dl Albumin 2.5 gm/dl Lipase 100 U/L Test 08/26/17 06:53 08/26/17 07:55 08/26/17 09:05 08/26/17 10:05 Bedside Glucose 150 mg/dl 250 mg/dl 224 mg/dl 183 mg/dl Test 08/26/17 11:07 08/26/17 11:55 08/26/17 11:59 08/26/17 13:16 Bedside Glucose 166 mg/dl 141 mg/dl 247 mg/dl Sodium Level 143 mmol/L Potassium Level 3.5 mmol/L Chloride Level 109 mmol/L Carbon Dioxide Level 32 mmol/L Anion Gap 3.0 mmol/L Blood Urea Nitrogen 18 mg/dl Creatinine 0.93 mg/dl Est Creatinine Clear Calc Drug Dose 152.7 ml/min Estimated GFR () 115.3 Estimated GFR (Non- 99.5 BUN/Creatinine Ratio 19.3 Random Glucose 161 mg/dl Calcium Level 8.3 mg/dl Chemistry Specimen Hemolysis Test 08/26/17 14:04 08/26/17 15:06 08/26/17 15:56 08/26/17 17:01 Bedside Glucose 241 mg/dl 202 mg/dl 154 mg/dl 172 mg/dl Test 08/26/17 18:05 08/26/17 18:47 08/26/17 19:05 08/26/17 19:28 Bedside Glucose 162 mg/dl 220 mg/dl Sodium Level 142 mmol/L Potassium Level mmol/L Chloride Level 108 mmol/L Carbon Dioxide Level 29 mmol/L Anion Gap 5.0 mmol/L Blood Urea Nitrogen 19 mg/dl Creatinine 0.91 mg/dl Est Creatinine Clear Calc Drug Dose 156.1 ml/min Estimated GFR () 118.4 Estimated GFR (Non- 102.1 BUN/Creatinine Ratio 20.6 Random Glucose 190 mg/dl Calcium Level 7.9 mg/dl Assessment & Plan DM TYPE 2, UNCONTROLLED / HYPEROSMOLAR HYPERGLYCEMIC STATE Presented with blood sugar of 1152. Although ketones were present (elevated BHB), anion gap and pH were normal. Therefore, favor HHS rather than DKA. Hgb A1C 16. No apparent infection or other acute illness that might precipitate hyperglycemia; suspect noncompliance is a factor. Pharmacy consulted for glycemia management. Glucose has improved with insulin infusion. Transition to SQ therapy per protocol. Ongoing diabetes education / support. ALTERED MENTAL STATUS Head CT negative. Metabolic encephalopathy secondary to HHS. Improved. HISTORY PULMONARY EMBOLISM / FACTOR V LEIDEN MUTATION / ELEVATED D-DIMER Compliance with rivaroxaban uncertain. D-dimer elevated. CTA chest negative for PE. Venous duplex lower extremities negative for DVT. Resume rivaroxaban. HYPERTENSION Lisinopril held due to BROOKS. Follow and titrate therapy. ACUTE KIDNEY INJURY Serum creatinine 2.13 on admission. BROOKS probably secondary to hyperglycemia / osmolar diuresis. Received IV fluids. Serum creatinine today = 09.1. Follow. HYPERNATREMIA Serum sodium as high as 156. Hypernatremia secondary to HHS. Na this morning = 149. Follow. CHRONIC PAIN Continue methadone at usual dose. VTE PROPHYLAXIS Received SQ heparin, transitioned to rivaroxaban. DISPOSITION Expected discharge to home. Family Medicine follow-up with Dr. Fuentes. . Current Inpatient Medications: Current Inpatient Medications Medications (Trade) Dose Ordered Sig/Ehsan Route Start Time Stop Time Status Last Admin Dose Admin Ioversol (Optiray 320) 100 ml UD PRN IV 08/24/17 12:45 08/28/17 12:44 Miscellaneous Information (Consult Glycemic Management Pharmacy) 1 ea UD PRN N/A 08/24/17 14:15 09/23/17 14:14 Insulin Human Regular 250 units/ Sodium Chloride 252.5 ml @ 0 mls/hr Q24H IV 08/24/17 15:00 08/28/17 23:59 08/25/17 15:07 7 MLS/HR Insulin Aspart (novoLOG ASPART) SLIDING SCALE PCHS SC 08/24/17 17:15 09/23/17 18:59 08/26/17 17:06 5 UNITS Glucose (Glucose 40% Gel) UD PRN PO 08/24/17 14:45 09/23/17 14:44 Glucose (Glucose Chew Tab) 1 tabs UD PRN PO 08/24/17 14:45 09/23/17 14:44 Dextrose (Dextrose 50% 50ML Syringe) 50 ml UD PRN IV 08/24/17 14:45 09/23/17 14:44 Glucagon (Glucagon Inj) 1 mg UD PRN SQ 08/24/17 14:45 09/23/17 14:44 Acetaminophen (Tylenol Tab) 650 mg Q4H PRN PO 08/24/17 14:45 09/23/17 14:44 Rivaroxaban (Xarelto Tab) 15 mg DAILY PO 08/25/17 09:00 09/24/17 08:59 08/26/17 08:01 15 MG Insulin Glargine (Lantus Solostar Pen) 80 units BID SC 08/26/17 09:00 09/24/17 18:29 08/26/17 17:05 80 UNITS
[2017-08-26] MEDS: INSULIN REGULAR 250 UNITS in SODIUM CHLORIDE 0.9% 250ML 250 ML IV SCH (19:43)
[2017-08-26] MEDS ORDERED: METHADONE PRN (22:00)
[2017-08-26] MEDS: GABAPENTIN 400 MG CAP PO SCH (22:15)
[2017-08-27] VITALS (7 sets, daily range): BP systolic 101–142; BP diastolic 68–77; PULSE 72–88; TEMP 36.4–36.8; O2SAT 90–97; Ht 185.4 cm; Wt 157.6 kg
[2017-08-27] MEDS: INSULIN ASPART 100 UNITS/ML 3 ML PEN SC SCH ×6 (00:50→20:58)
[2017-08-27 07:01] LABS: HEMATOCRIT 41.8 % (42-52); MEAN CELL VOLUME 93.7 fL (80-100); MEAN CORPUSCULAR HEMOGLOBIN 30.3 pg (25-34); MEAN CORPUSCULAR HGB CONC 32.3 g/dl (32-36); RED BLOOD COUNT 4.46 M/uL (4.7-6.1); WHITE BLOOD COUNT 7.57 K/uL (4.8-10.8)
[2017-08-27 07:34] LABS: BUN/CREATININE RATIO 21.4 (10-20); CALCIUM 7.7 mg/dl (8.5-10.1); CREATININE 0.88 mg/dl (0.60-1.40); MAGNESIUM 2.3 mg/dl (1.8-2.4); PHOSPHORUS 1.6 mg/dl (2.5-4.9); POTASSIUM 3.6 mmol/L (3.5-5.1)
[2017-08-27 08:09] LABS: MEAN PLATELET VOLUME 11.9 fL (7.4-10.4); PLATELET COUNT 92 K/uL (130-400)
[2017-08-27 08:12] LABS: BASO % 0.3 %; BASO ABS # 0.02 K/uL (0-0.2); COMPLETE YES; EOS % 3.3 %; IG% 0.4 %; LYMPH % 37.3 %; LYMPH ABS # 2.82 K/uL (1.2-3.4); MONO % 6.6 %; NEUT % 52.1 %; PLT ESTIMATE DECREASED
[2017-08-27] MEDS ORDERED: INSULIN GLARGINE SOLOSTAR 100 UNITS/ML 3 ML PEN SC SCH ×2 (09:00→21:00)
[2017-08-27] MEDS: METHADONE ORAL SOLN 2 MG/1ML PO SCH (09:19)
[2017-08-27] MEDS: GABAPENTIN 400 MG CAP PO SCH ×4 (09:28→20:58)
[2017-08-27] MEDS: BuPROPion SR 150 MG TABCR PO SCH (09:28)
[2017-08-27] MEDS: RIVAROXABAN TAB 15 MG TAB PO SCH (09:28)
--- NOTE | 2017-08-27 11:37 | Pharmacy Progress Note ---
Glycemic Control Progress Note Date of Service Aug 27, 2017. Scope Glycemic Pharmacist consulted for glycemic control to write orders per [facility] inpatient glycemic control protocol. Objective Accuchecks BSG (last 24hrs): Test 08/26/17 11:55 08/26/17 11:59 08/26/17 13:16 08/26/17 14:04 Random Glucose 161 mg/dl (70-99) Bedside Glucose 141 mg/dl (70-99) 247 mg/dl (70-99) 241 mg/dl (70-99) Test 08/26/17 15:06 08/26/17 15:56 08/26/17 17:01 08/26/17 18:05 Bedside Glucose 202 mg/dl (70-99) 154 mg/dl (70-99) 172 mg/dl (70-99) 162 mg/dl (70-99) Test 08/26/17 18:47 08/26/17 19:05 08/26/17 20:02 08/26/17 20:59 Random Glucose 190 mg/dl (70-99) Bedside Glucose 220 mg/dl (70-99) 185 mg/dl (70-99) 241 mg/dl (70-99) Test 08/26/17 22:04 08/26/17 23:27 08/27/17 00:25 08/27/17 01:21 Bedside Glucose 157 mg/dl (70-99) 195 mg/dl (70-99) 195 mg/dl (70-99) 220 mg/dl (70-99) Test 08/27/17 02:38 08/27/17 04:22 08/27/17 06:33 08/27/17 06:43 Bedside Glucose 217 mg/dl (70-99) 221 mg/dl (70-99) 219 mg/dl (70-99) Random Glucose 237 mg/dl (70-99) Test 08/27/17 11:04 Bedside Glucose 223 mg/dl (70-99) HbA1c: Test 08/24/17 11:30 Hemoglobin A1c 16.8 % (4.5-5.6) H Recent Pertinent Medications Outpatient Anti-diabetic Regimen: * metformin 500 mg PO daily Risk Factors for Insulin Resistance: * Diet: NPO except ice chips Outpatient Anti-Diabetic Meds [Oral Agents] [Basal Insulin] [Bolus Insulin] or [GLP-1 RA] Assessment & Plan ASSESSMENT: * See progress note from 08/24/17 for more background info, in short: * Pt receiving SQ basal bolus insulin regimen for hyperglycemia secondary to baseline DM (outpatient regimen on hold). * Patient is currently receiving an average of 277 units of insulin per day * 160 units of basal insulin * 26 units of prandial/correctional insulin PLUS insulin infusion ranging from 5.4 units/hr to 8.4 units/hr * BSGs ranging 141 - 220 mg/dl over the past 24hrs * Changes needed to insulin regimen: * AM Fasting BSG = 237 mg/dl. This is slightly above goal range for patient based on inpatient targets and co-morbidities. Patient received Lantus 80 units SQ BID yesterday x 2 doses. This is a reasonable fasting blood sugar considering the patient's HbA1C. Reduced Lantus to 60 units SQ BID based upon an estimated total daily dose of 250 units/day (calculated from insulin infusion gtt rate average plus Lantus dose). This will most likely underdose the patient, but will provide adequate coverage at this point. Scale provided for this evening in case Lantus dose is too aggressive. Please note that a full Lantus 24 hour dose was not given because the infusion was shut off yesterday evening based upon the calculator. * Post-prandial BSGs cannot be evaluated currently. From breakfast to lunch, blood sugars remained stable. Continue aggressive Novolog dosing based upon TDD of 250 units/day. Overnight acchucheck added in case basal dose not sufficient. * Total daily dose = 200-250 units. Continue regimen. PLAN FOR INPATIENT GLYCEMIC CONTROL: * Decreasing Lantus/ to 60 units SQ BID * Starting correction factor to 5 mg/dl/unit * Starting carb ratio to 1 unit per 2 grams CHO consumed * Changing goal range to Low 110 mg/dL - High 140 mg/dL --> once patient more controlled reasonable to change to 140-180 mg/dL RECOMMENDATIONS FOR DISCHARGE: * see note from 08/26/17
--- NOTE | 2017-08-27 16:03 | Progress Note ---
Medicine Progress Note Date & Time of Visit: Aug 27, 2017 at 10:45 . Subjective Blood sugars improved. Weaned off insulin infusion yesterday. No fever. No chest pain. No cough or SOB. No nausea or vomiting. . Objective Last 8 Hrs Date Time Temp Pulse Resp B/P (MAP) Pulse Ox O2 Delivery O2 Flow Rate FiO2 08/27/17 15:50 36.4 80 20 132/69 (90) 90 Room Air 08/27/17 13:36 36.7 88 20 122/77 (92) 91 Room Air 08/27/17 12:18 36.6 78 18 135/69 (91) 97 Room Air 08/27/17 12:00 Room Air 08/27/17 08:13 36.6 72 18 101/68 (79) 94 Room Air Physical Exam: General- no distress Neck- no JVD Lungs- clear Heart- RRR, no murmur or gallop Abdomen- + BS, soft, nontender Extremities- trace pretibial edema, no calf tenderness Neuro- alert Skin- trace pretibial edema; chronic venous stasis changes lower extremities; warm & dry . Laboratory Results: Last 24 Hours Test 08/26/17 17:01 08/26/17 18:05 08/26/17 18:47 08/26/17 19:05 Bedside Glucose 172 mg/dl 162 mg/dl 220 mg/dl Sodium Level 142 mmol/L Potassium Level mmol/L Chloride Level 108 mmol/L Carbon Dioxide Level 29 mmol/L Anion Gap 5.0 mmol/L Blood Urea Nitrogen 19 mg/dl Creatinine 0.91 mg/dl Est Creatinine Clear Calc Drug Dose 156.1 ml/min Estimated GFR () 118.4 Estimated GFR (Non- 102.1 BUN/Creatinine Ratio 20.6 Random Glucose 190 mg/dl Calcium Level 7.9 mg/dl Test 08/26/17 20:02 08/26/17 20:59 08/26/17 21:18 08/26/17 22:04 Bedside Glucose 185 mg/dl 241 mg/dl 157 mg/dl Potassium Level 4.3 mmol/L Test 08/26/17 23:27 08/27/17 00:25 08/27/17 01:21 08/27/17 02:38 Bedside Glucose 195 mg/dl 195 mg/dl 220 mg/dl 217 mg/dl Test 08/27/17 04:22 08/27/17 06:33 08/27/17 06:43 08/27/17 11:04 Bedside Glucose 221 mg/dl 219 mg/dl 223 mg/dl White Blood Count 7.57 K/uL Red Blood Count 4.46 M/uL Hemoglobin 13.5 g/dL Hematocrit 41.8 % Mean Corpuscular Volume 93.7 fL Mean Corpuscular Hemoglobin 30.3 pg Mean Corpuscular Hemoglobin Concent 32.3 g/dl Platelet Count 92 K/uL Mean Platelet Volume 11.9 fL Neutrophils (%) (Auto) 52.1 % Lymphocytes (%) (Auto) 37.3 % Monocytes (%) (Auto) 6.6 % Eosinophils (%) (Auto) 3.3 % Basophils (%) (Auto) 0.3 % Neutrophils # (Auto) 3.95 K/uL Lymphocytes # (Auto) 2.82 K/uL Monocytes # (Auto) 0.50 K/uL Eosinophils # (Auto) 0.25 K/uL Basophils # (Auto) 0.02 K/uL RDW Standard Deviation 46.2 fL RDW Coefficient of Variation 13.4 % Immature Granulocyte % (Auto) 0.4 % Immature Granulocyte # (Auto) 0.03 K/uL Platelet Estimate DECREASED Sodium Level 141 mmol/L Potassium Level 3.6 mmol/L Chloride Level 107 mmol/L Carbon Dioxide Level 28 mmol/L Anion Gap 6.0 mmol/L Blood Urea Nitrogen 19 mg/dl Creatinine 0.88 mg/dl Est Creatinine Clear Calc Drug Dose 168.2 ml/min Estimated GFR () 121.1 Estimated GFR (Non- 104.5 BUN/Creatinine Ratio 21.4 Random Glucose 237 mg/dl Calcium Level 7.7 mg/dl Phosphorus Level 1.6 mg/dl Magnesium Level 2.3 mg/dl Assessment & Plan DM TYPE 2, UNCONTROLLED / HYPEROSMOLAR HYPERGLYCEMIC STATE Presented with blood sugar of 1152. Although ketones were present (elevated BHB), anion gap and pH were normal. Therefore, favor HHS rather than DKA. Hgb A1C 16. No apparent infection or other acute illness that might precipitate hyperglycemia; suspect noncompliance is a factor. Pharmacy consulted for glycemia management. Glucoses improved with insulin infusion. Transitioned to SQ therapy with Lantus + NovoLog per protocol. FBS today = 219. Ongoing diabetes education / support. ALTERED MENTAL STATUS Head CT negative. Metabolic encephalopathy secondary to HHS. Improved. HISTORY PULMONARY EMBOLISM / FACTOR V LEIDEN MUTATION / ELEVATED D-DIMER Compliance with rivaroxaban uncertain. D-dimer elevated. CTA chest negative for PE. Venous duplex lower extremities negative for DVT. Resumed rivaroxaban. HYPERTENSION Lisinopril held due to BROOKS. Renal function improved. Resume lisinopril. Follow and titrate therapy. ACUTE KIDNEY INJURY Serum creatinine 2.13 on admission. BROOKS probably secondary to hyperglycemia / osmolar diuresis. Received IV fluids. Serum creatinine today = 0.88. Follow. HYPERNATREMIA Serum sodium as high as 156. Hypernatremia secondary to HHS. Na this morning = 141. Follow. CHRONIC PAIN Resumed methadone at usual dose. VTE PROPHYLAXIS Received SQ heparin, transitioned to rivaroxaban. DISPOSITION Expected discharge to home. Family Medicine follow-up with Dr. Fuentes. . Current Inpatient Medications: Current Inpatient Medications Medications (Trade) Dose Ordered Sig/Ehsan Route Start Time Stop Time Status Last Admin Dose Admin Ioversol (Optiray 320) 100 ml UD PRN IV 08/24/17 12:45 08/28/17 12:44 Miscellaneous Information (Consult Glycemic Management Pharmacy) 1 ea UD PRN N/A 08/24/17 14:15 09/23/17 14:14 Glucose (Glucose 40% Gel) UD PRN PO 08/24/17 14:45 09/23/17 14:44 Glucose (Glucose Chew Tab) 1 tabs UD PRN PO 08/24/17 14:45 09/23/17 14:44 Dextrose (Dextrose 50% 50ML Syringe) 50 ml UD PRN IV 08/24/17 14:45 09/23/17 14:44 Glucagon (Glucagon Inj) 1 mg UD PRN SQ 08/24/17 14:45 09/23/17 14:44 Acetaminophen (Tylenol Tab) 650 mg Q4H PRN PO 08/24/17 14:45 09/23/17 14:44 Rivaroxaban (Xarelto Tab) 15 mg DAILY PO 08/25/17 09:00 09/24/17 08:59 08/27/17 09:28 15 MG Bupropion HCl (Wellbutrin-Sr Tab) 150 mg DAILY PO 08/27/17 09:00 09/26/17 08:59 08/27/17 09:28 150 MG Methadone HCl (Methadone HCl) 111 mg QAM PO 08/27/17 09:00 09/10/17 08:59 08/27/17 09:19 111 MG Gabapentin (Neurontin Cap) 400 mg QID PO 08/26/17 21:00 09/25/17 20:59 08/27/17 12:47 400 MG Non-Formulary Medication (Patient'S Own Controlled Med) 1 ea QAM PRN N/A 08/26/17 22:00 09/09/17 21:59 Insulin Aspart (novoLOG ASPART) SLIDING SCALE ACHS UT 08/27/17 07:00 09/26/17 06:59 08/27/17 12:42 40 UNITS Insulin Aspart (novoLOG ASPART) SLIDING SCALE TODAY@0200 UT 08/28/17 02:00 08/28/17 02:01 Insulin Glargine (Lantus Solostar Pen) SEE PROTOCOL TEXT BID UT 08/27/17 21:00 09/26/17 20:59
[2017-08-27] MEDS ORDERED: LISINOPRIL 2.5 MG TAB PO ONE (16:04)
[2017-08-27] MEDS ORDERED: POTASSIUM PHOS 3 MMOL/1 ML INFUSION IV ONE (16:15)
[2017-08-27] MEDS ORDERED: POTASSIUM PHOSPHATE INJ 21 MMOL in SODIUM CHLORIDE 0.9% 500ML 500 ML IV ONE (16:15)
[2017-08-28] MEDS ORDERED: INSULIN ASPART 100 UNITS/ML 3 ML PEN SC SCH (02:00)
[2017-08-28 07:21] VITALS: BP 107/72; PULSE 83; TEMP 36.5; O2SAT 92
[2017-08-28 07:50] LABS: HEMATOCRIT 39.5 % (42-52); MEAN CELL VOLUME 93.4 fL (80-100); MEAN CORPUSCULAR HGB CONC 32.2 g/dl (32-36); MEAN PLATELET VOLUME 12.4 fL (7.4-10.4); PLATELET COUNT 97 K/uL (130-400); RED BLOOD COUNT 4.23 M/uL (4.7-6.1); WHITE BLOOD COUNT 8.44 K/uL (4.8-10.8)
[2017-08-28 07:51] LABS: BASO % 0.1 %; BASO ABS # 0.01 K/uL (0-0.2); COMPLETE YES; EOS % 2.5 %; IG% 0.4 %; LYMPH % 32.3 %; LYMPH ABS # 2.73 K/uL (1.2-3.4); MONO % 8.1 %; NEUT % 56.6 %
[2017-08-28] MEDS: BuPROPion SR 150 MG TABCR PO SCH (07:58)
[2017-08-28] MEDS: RIVAROXABAN TAB 15 MG TAB PO SCH (07:58)
[2017-08-28] MEDS: GABAPENTIN 400 MG CAP PO SCH ×2 (07:58→11:54)
[2017-08-28 07:59] LABS: BUN/CREATININE RATIO 19.4 (10-20); CREATININE 0.84 mg/dl (0.60-1.40); POTASSIUM 3.9 mmol/L (3.5-5.1)
[2017-08-28] MEDS: INSULIN ASPART 100 UNITS/ML 3 ML PEN SC SCH ×2 (07:59→11:51)
[2017-08-28] MEDS: METHADONE ORAL SOLN 2 MG/1ML PO SCH (08:14)
[2017-08-28] MEDS ORDERED: INSULIN GLARGINE SOLOSTAR 100 UNITS/ML 3 ML PEN SC SCH ×3 (09:00→21:00)
[2017-08-28] MEDS ORDERED: LISINOPRIL 2.5 MG TAB PO SCH (09:00)
--- NOTE | 2017-08-28 11:38 | Pharmacy Progress Note ---
Pharmacy Glycemic Short Note 2 Date of Service Aug 28, 2017. OUTPATIENT ANTIDIABETIC REGIMEN: * metformin 1 gm PO BID ASSESSMENT: * Mr Blake is a 42 y/o M admitted with HHS after an unresponsive episode at the methadone clinic. He was previously on an insulin infusion until the infusion turned itself off the evening of 08/26. Yesterday he received a total fo 224 units of insulin (110 units of basal) and blood sugars ranged from 90- 237 mg/dL. Fasting this morning was 223 mg/dL (may have resulted from uncovered snack). Estimate patient requires between 140-180 units of insulin/day. Adjusted accordingly by lowering Lantus and loosening parameters on Novolog. PLAN FOR INPATIENT GLYCEMIC CONTROL: * Hold outpatient oral diabetes medications * Basal insulin * Lantus 45 units SQ this morning then 30-40 units SQ BID starting tonight * Bolus insulin * NovoLog per scale ACHS or Q6hrs while NPO * Goal Range: Low 120 mg/dL - High 150 mg/dL * Correction Factor: 10 mg/dL/unit * Nutritional / Prandial insulin per carb ratio of 1 unit per 4 grams CHO consumed PLAN FOR DISCHARGE: * please see note from 08/26/17
--- NOTE | 2017-08-28 14:52 | Progress Note ---
Medicine Progress Note Date & Time of Visit: Aug 28, 2017 at 14:52 . Subjective Feels well. Blood sugars improved. Has received diabetes education and feels comfortable with glucometer checks and insulin injections. No fever, chest pain, cough, SOB, nausea, vomiting. . Objective Last 8 Hrs Date Time Temp Pulse Resp B/P (MAP) Pulse Ox O2 Delivery O2 Flow Rate FiO2 08/28/17 08:30 Room Air 08/28/17 07:21 36.5 83 22 107/72 (84) 92 Physical Exam: General- no distress Neck- no JVD Lungs- clear Heart- RRR, no murmur or gallop Abdomen- + BS, soft, nontender Extremities- trace pretibial edema, no calf tenderness Neuro- alert Skin- trace pretibial edema; chronic venous stasis changes lower extremities; warm & dry . Laboratory Results: Last 24 Hours Test 08/27/17 16:12 08/27/17 19:58 08/28/17 01:43 08/28/17 02:12 Bedside Glucose 122 mg/dl 90 mg/dl 99 mg/dl 87 mg/dl Test 08/28/17 06:53 08/28/17 07:18 08/28/17 11:18 White Blood Count 8.44 K/uL Red Blood Count 4.23 M/uL Hemoglobin 12.7 g/dL Hematocrit 39.5 % Mean Corpuscular Volume 93.4 fL Mean Corpuscular Hemoglobin 30.0 pg Mean Corpuscular Hemoglobin Concent 32.2 g/dl Platelet Count 97 K/uL Mean Platelet Volume 12.4 fL Neutrophils (%) (Auto) 56.6 % Lymphocytes (%) (Auto) 32.3 % Monocytes (%) (Auto) 8.1 % Eosinophils (%) (Auto) 2.5 % Basophils (%) (Auto) 0.1 % Neutrophils # (Auto) 4.78 K/uL Lymphocytes # (Auto) 2.73 K/uL Monocytes # (Auto) 0.68 K/uL Eosinophils # (Auto) 0.21 K/uL Basophils # (Auto) 0.01 K/uL RDW Standard Deviation 45.8 fL RDW Coefficient of Variation 13.5 % Immature Granulocyte % (Auto) 0.4 % Immature Granulocyte # (Auto) 0.03 K/uL Sodium Level 142 mmol/L Potassium Level 3.9 mmol/L Chloride Level 108 mmol/L Carbon Dioxide Level 26 mmol/L Anion Gap 8.0 mmol/L Blood Urea Nitrogen 16 mg/dl Creatinine 0.84 mg/dl Est Creatinine Clear Calc Drug Dose 176.1 ml/min Estimated GFR () 123.4 Estimated GFR (Non- 106.5 BUN/Creatinine Ratio 19.4 Random Glucose 223 mg/dl Calcium Level 8.0 mg/dl Phosphorus Level 2.0 mg/dl Bedside Glucose 205 mg/dl 163 mg/dl Assessment & Plan DM TYPE 2, UNCONTROLLED / HYPEROSMOLAR HYPERGLYCEMIC STATE Presented with blood sugar of 1152. Although ketones were present (elevated BHB), anion gap and pH were normal. Therefore, favor HHS rather than DKA. Hgb A1C 16. No apparent infection or other acute illness that might precipitate hyperglycemia; suspect noncompliance is a factor. Pharmacy consulted for glycemia management. Glucoses improved with insulin infusion. Transitioned to SQ therapy with Lantus + NovoLog per protocol. FBS today = 205. Given degree of hyperglycemia at presentation, best to allow relatively high blood sugars initially. Discharge on metformin 1000 mg BID, insulin glargine 40 units BID, insulin aspartate with meals. Ongoing diabetes education / support. ALTERED MENTAL STATUS Head CT negative. Metabolic encephalopathy secondary to HHS. Improved. HISTORY PULMONARY EMBOLISM / FACTOR V LEIDEN MUTATION / ELEVATED D-DIMER Compliance with rivaroxaban uncertain. D-dimer elevated. CTA chest negative for PE. Venous duplex lower extremities negative for DVT. Resumed rivaroxaban. HYPERTENSION Lisinopril held due to BROOKS. Renal function improved. Resume lisinopril. Follow and titrate therapy. ACUTE KIDNEY INJURY Serum creatinine 2.13 on admission. BROOKS probably secondary to hyperglycemia / osmolar diuresis. Received IV fluids. Serum creatinine today = 0.84. HYPERNATREMIA Serum sodium as high as 156. Hypernatremia secondary to HHS. Na this morning = 142. Follow. CHRONIC PAIN Resumed methadone at usual dose. VTE PROPHYLAXIS Received SQ heparin, transitioned to rivaroxaban. DISPOSITION Discharge to home. Family Medicine follow-up with Dr. Fuentes. . Consultants: [facility] . Procedures: cardiac monitoring IV fluids IV meds CT head CTA chest venous duplex lower extremities diabetes education . Current Inpatient Medications: Current Inpatient Medications Medications (Trade) Dose Ordered Sig/Ehsan Route Start Time Stop Time Status Last Admin Dose Admin Miscellaneous Information (Consult Glycemic Management Pharmacy) 1 asia VARGAS PRN N/A 08/24/17 14:15 09/23/17 14:14 Glucose (Glucose 40% Gel) UD PRN PO 08/24/17 14:45 09/23/17 14:44 Glucose (Glucose Chew Tab) 1 tabs UD PRN PO 08/24/17 14:45 09/23/17 14:44 Dextrose (Dextrose 50% 50ML Syringe) 50 ml UD PRN IV 08/24/17 14:45 09/23/17 14:44 Glucagon (Glucagon Inj) 1 mg UD PRN SQ 08/24/17 14:45 09/23/17 14:44 Acetaminophen (Tylenol Tab) 650 mg Q4H PRN PO 08/24/17 14:45 09/23/17 14:44 Rivaroxaban (Xarelto Tab) 15 mg DAILY PO 08/25/17 09:00 09/24/17 08:59 08/28/17 07:58 15 MG Bupropion HCl (Wellbutrin-Sr Tab) 150 mg DAILY PO 08/27/17 09:00 09/26/17 08:59 08/28/17 07:58 150 MG Methadone HCl (Methadone HCl) 111 mg QAM PO 08/27/17 09:00 09/10/17 08:59 08/28/17 08:14 111 MG Gabapentin (Neurontin Cap) 400 mg QID PO 08/26/17 21:00 09/25/17 20:59 08/28/17 11:54 400 MG Non-Formulary Medication (Patient'S Own Controlled Med) 1 ea QAM PRN N/A 08/26/17 22:00 09/09/17 21:59 Insulin Aspart (novoLOG ASPART) SLIDING SCALE ACHS SC 08/27/17 07:00 09/26/17 06:59 08/28/17 11:51 19 UNITS Lisinopril (Zestril Tab) 2.5 mg QAM PO 08/28/17 09:00 09/27/17 08:59 08/28/17 07:57 2.5 MG Insulin Glargine (Lantus Solostar Pen) see protocol text BID SC 08/28/17 21:00 09/27/17 20:59
[2017-08-28] MEDS ORDERED: NVLGIPEN INJ (15:12)
[2017-08-28] MEDS ORDERED: LANC1MIS (15:12)
[2017-08-28] MEDS ORDERED: [UNRECOGNIZED DRUG - CODE] ×2 (15:12)
[2017-08-28] MEDS ORDERED: METF500T5 PO (15:12)
[2017-08-28] MEDS ORDERED: INSU32MI13 (15:12)
[2017-08-28] MEDS ORDERED: INSU100I23 INJ (15:12)
--- NOTE | 2017-08-28 15:25 | Discharge Instructions ---
Discharge Instructions Date of Service Aug 28, 2017. Admission Reason for Admission: diabetes with very high blood sugars . Discharge Discharge Diagnosis / Problem: diabetes Discharge Goals Goal(s): Improve disease control Activity Recommendations Activity Limitations: resume your previous activity . Instructions / Follow-Up Instructions / Follow-Up APPOINTMENTS: FAMILY MEDICINE 08/30/2017 11:40 AM Dashawn Fuentes MD OTHER INSTRUCTIONS: Your blood sugar was very high when you came to the hospital. Check blood sugars before each meal and at bedtime. Increase metformin (Glucophage) to 2 pills (1000 mg) twice a day. Start insulin glargine (Basaglar) 40 units twice a day in morning and at bedtime. Start insulin aspartate (NovoLog), starting with the following schedule: 10 units before each meal skip dose if blood sugar is less than 100 take extra amount if blood sugars are above 150 blood sugar 151-200 take additional 4 units blood sugar 201-250 take additional 8 units blood sugar above 250 take additional [address] Fuentes to make referral to Diabetes Team for ongoing teaching, support, monitoring. Seek medical attention if you have: * blood sugars that are consistently running too high (above 250) or too low ( below 70) * temperature above 101 * chest pain or trouble breathing * abdominal pain, nausea, vomiting * diarrhea, dark stools or bloody stools * any unanswered questions or concerns Call 911 if symptoms are severe. Call if you have any questions or problems. My cell # is [phone]. You can also reach a [facility] hospitalist on duty at [facility] 24 hours a day by calling [phone]. Please take good care of yourself. Jj Olvera . Current Hospital Diet Patient's current hospital diet: Diabetes Type 2 Diet Discharge Diet Recommended Diet: AHA Diet (Heart Healthy), Diabetes Type 2 Diet Pending Studies Studies pending at discharge: no Laboratory Results Hemoglobin A1c Test 08/24/17 11:30 Range/Units Estimated Average Glucose 435 mg/dl Hemoglobin A1c 16.8 H 4.5-5.6 % Medical Emergencies . Who to Call and When: Medical Emergencies: If at any time you feel your situation is an emergency, please call 911 immediately. . Non-Emergent Contact Non-Emergency issues call your: Primary Care Provider, Hospital Doctor . . "Provider Documentation" section prepared by Jj lOvera. . VTE Core Measure Inpt VTE Proph given/why not?: Unfractionated heparin SQ, Other Anticoagulation (rivaroxaban)
[2017-08-28 15:40] VITALS: BP 107/72; PULSE 83; TEMP 36.5; O2SAT 92
--- NOTE | 2017-08-29 05:25 | Discharge Summary ---
Discharge Summary Date of Service Aug 29, 2017. Discharge Summary Admission Date: Aug 24, 2017 at 14:39 Discharge Date: Aug 28, 2017 Discharge Disposition: Home Principal Diagnosis: diabetes mellitus type 2 with hyperosmolar hyperglycemic state OTHER ACUTE DIAGNOSES: hypernatremia acute kidney injury metabolic encephalopathy . Secondary Diagnoses/Problems: Chronic and Resolved Medical Problems: (1) Chronic back pain Status: Chronic (2) Chronic deep venous thrombosis Status: Chronic (3) Chronic dental pain Status: Chronic (4) CHRONIC PAIN SYNDROME Status: Chronic (5) Degeneration of lumbar intervertebral disc Status: Chronic (6) Depression Status: Chronic (7) Diabetes mellitus, type 2 Status: Chronic (8) Discitis Status: Resolved (9) Dyslipidemia Status: Chronic (10) Factor V Leiden mutation Status: Chronic (11) Foot fracture, right Status: Resolved (12) GERD (gastroesophageal reflux disease) Status: Chronic (13) History of DVT (deep vein thrombosis) Status: Chronic (14) History of pulmonary embolism Status: Chronic (15) HTN (hypertension) Status: Chronic (16) Migraine Status: Chronic (17) Multiple injuries 2007 Permanent Comment: slipped on floor 2007 injured back, left hip, left knee Status: Resolved (18) Osteomyelitis of thoracic spine Status: Resolved (19) Pneumonia Status: Resolved (20) TOBACCO USE DISORDER Status: Chronic Surgical Problems: (1) s/p left hip arthroscopy Status: Chronic (2) s/p left knee ACL repair Status: Chronic . Procedures: cardiac monitoring IV fluids IV meds CT head CTA chest venous duplex lower extremities diabetes education . Consultations: CCM . Medication Reconciliation New Medications: Blood Glucose Monitoring Suppl (Accu-Chek Yarelis) 1 Mis Mis BOX ACHS, #1 12 Refills test strips Blood Glucose Monitoring Suppl (Accu-Chek Yarelis) 1 Mis Mis UNIT, #1 glucometer Insulin Aspart (Novolog Flexpen) 100 Units/Ml Inj 0 INJ ACHS, #5 PEN 12 Refills Insulin Glargine (Basaglar Kwikpen) 100 Unit/Ml Inj 40 UNITS INJ BID, #5 PEN 12 Refills Insulin Pen Needle (Bd Pen Needle/Emily/Ultra) 1 Mis Mis BOX ACHS, #1 12 Refills Lancets (Accu-Chek Fastclix Lancet) 1 Mis Mis UNIT ACHS, #1 12 Refills Metformin Hcl Er (Glucophage Er) 500 Mg Tab 1000 MG PO BID, #120 TAB 5 Refills Continued Medications: Bupropion HCl (Bupropion HCl Sr) 150 Mg Tabcr 150 MG PO DAILY Docusate Sodium (Ra Col-Rite) 100 Mg Cap 100 MG PO BID Gabapentin (Gabapentin) 800 Mg Tab 800 MG PO QID Lisinopril (Lisinopril) 5 Mg Tab 5 MG PO DAILY Methadone HCl (Methadose) 10 Mg/Ml Soln 111 MG PO DAILY Omeprazole (Prilosec) 40 Mg Cap 40 MG PO DAILY Rivaroxaban (Xarelto) 15 Mg Tab 1 TAB PO DAILY Simvastatin (Simvastatin) 20 Mg Tab 20 MG PO HS Sumatriptan Succinate (Imitrex) 100 Mg Tab 1 TAB PO UD for 30 Days, #9 TAB 1 Refill 1 tab po Q2hrs prn migraine. do not exceed more than 2 tabs in 24 hours Valacyclovir Hcl (Valtrex) 1 Gm Tab 2 TAB PO UD for 30 Days, TAB 3 Refills 2 tabs po Q12 hr for 1 day prn cold sore Discontinued Medications: Metformin Hcl Er (Glucophage Er) 500 Mg Tab 1000 MG PO DAILY Admission Information HPI (per Admitting provider): Pt is 42 y/o M with PMH chronic back pain, substance abuse - on methadone, HTN, dyslipidemia, obesity, Factor V Leiden with hx DVT, on xarelto, migraine, GERD presented to ED with mother with c/o altered mental status x couple of days. Mother states pt fell on 08/20/17 and she reports that he fell backwards hitting wall hitting his head and back. Mother states since has noticed pt seems confused, is more drowsy, decreased appetite and has been c/o being dizzy. Pt very drowsy in ER and noted desaturations, and initially mother gives hx. Pt was given additional dose of narcan and arouses and gives additional history. Pt reports feeling dizzy past couple of days. He is unsure if had any LOC with the fall or after. C/O nausea and intermittent vomiting past couple of days. Pt goes to methadone clinic, denies using any other drugs. Admits drank 4 beers "the other day", but states usually doesn't drink. Pt reports was told he is diabetic. Was on metformin 500mg 1 tab daily and on 07/29/17 it was increased to 2 tabs daily. Pt reports doesn't do home glucose monitoring. No A1C noted in epic records. last glucose was 257 on 09/17/15 hospital records. Pt denies polydipsia, polyuria. Reports hx migraines but denies any increased SALEH 's. Pt admits to being non-compliant with his medications. Reports trying to loose weight, but he is unsure if he has lost any weight. Denies any known fever , chills, diaphoresis, diarrhea, constipation, vision changes, CP, SOB, orthopnea, palpitations, cough, sore throat, choking, otalgia, rhinorrhea, abdominal pain, paresthesias, weakness, extremity edema, rashes, dysuria, hematuria. In ER pt afebrile, desats to 86% on RA, 90% on 4L NC. ER staff reports pt somnolent and arouses after narcan multiple doses. WBC: 13 Glucose: 1152, beta hydroxybutyric acid: 19, hgbA1c: 16.8, BUN: 39, CR: 2.1, urine: trace ketones, urine tox: +methadone. CXR: bibasilar atelectasis, negative head CT, negative CT chest for PE. EK sinus tachy with prolonged QT: 497 . Physical Exam (per Admitting): General Appearance: + obese, + pertinent finding (pt somnolent, does arouse after narcan given and able to answer questions, however starts talking on tangent) Head: normocephalic, atraumatic Eyes: normal inspection, PERRL, EOMI, sclerae normal ENT: hearing grossly normal, pharynx normal, + pertinent finding (+dry mucous membranes) Neck: supple, no JVD, no carotid bruits Respiratory/Chest: chest non-tender, lungs clear, normal breath sounds, no respiratory distress, no accessory muscle use Cardiovascular: no murmur, + tachycardia (100-106) Abdomen/GI: normal bowel sounds, non tender, soft Extremities/Musculoskelatal: no calf tenderness, normal capillary refill, non-tender, + pedal edema (mild bilaterally), + pertinent finding (venous stasis changes bilateral lower legs) Neurologic/Psych: + pertinent finding (drowsy, falling alseep. after narcan given during exam pt alert oriented to person, place and time. pedal pushes intact, no facial drooping, strength equal bilateral upper and lower extremities , sensation to light touch intact. ) Skin: warm/dry Hospital Course DM TYPE 2, UNCONTROLLED / HYPEROSMOLAR HYPERGLYCEMIC STATE Presented with blood sugar of 1152. Although ketones were present (elevated BHB), anion gap and pH were normal. Therefore, favor HHS rather than DKA. Hgb A1C 16. No apparent infection or other acute illness that might precipitate hyperglycemia; suspect noncompliance is a factor. Pharmacy consulted for glycemia management. Glucoses improved with insulin infusion. Transitioned to SQ therapy with Lantus + NovoLog per protocol. FBS today = 205. Given degree of hyperglycemia at presentation, best to allow relatively high blood sugars initially. Discharge on metformin 1000 mg BID, insulin glargine 40 units BID, insulin aspartate with meals. Ongoing diabetes education / support. ALTERED MENTAL STATUS Head CT negative. Metabolic encephalopathy secondary to HHS. Improved. HISTORY PULMONARY EMBOLISM / FACTOR V LEIDEN MUTATION / ELEVATED D-DIMER Compliance with rivaroxaban uncertain. D-dimer elevated. CTA chest negative for PE. Venous duplex lower extremities negative for DVT. Resumed rivaroxaban. HYPERTENSION Lisinopril held due to BROOKS. Renal function improved. Resume lisinopril. Follow and titrate therapy. ACUTE KIDNEY INJURY Serum creatinine 2.13 on admission. BROOKS probably secondary to hyperglycemia / osmolar diuresis. Received IV fluids. Serum creatinine today = 0.84. HYPERNATREMIA Serum sodium as high as 156. Hypernatremia secondary to HHS. Na this morning = 142. Follow. CHRONIC PAIN Resumed methadone at usual dose. VTE PROPHYLAXIS Received SQ heparin, transitioned to rivaroxaban. DISPOSITION Discharge to home. Family Medicine follow-up with Dr. Fuentes. . Total time spent on discharge = 45 min. This includes examination of the patient, discharge planning, medication reconciliation, and communication with other providers. . Discharge Instructions Date of Service Aug 28, 2017. Admission Reason for Admission: diabetes with very high blood sugars . Discharge Discharge Diagnosis / Problem: diabetes Discharge Goals Goal(s): Improve disease control Activity Recommendations Activity Limitations: resume your previous activity . Instructions / Follow-Up Instructions / Follow-Up APPOINTMENTS: FAMILY MEDICINE 08/30/2017 11:40 AM Dashawn Fuentes MD OTHER INSTRUCTIONS: Your blood sugar was very high when you came to the hospital. Check blood sugars before each meal and at bedtime. Increase metformin (Glucophage) to 2 pills (1000 mg) twice a day. Start insulin glargine (Basaglar) 40 units twice a day in morning and at bedtime. Start insulin aspartate (NovoLog), starting with the following schedule: 10 units before each meal skip dose if blood sugar is less than 100 take extra amount if blood sugars are above 150 blood sugar 151-200 take additional 4 units blood sugar 201-250 take additional 8 units blood sugar above 250 take additional [address] Fuentes to make referral to Diabetes Team for ongoing teaching, support, monitoring. Seek medical attention if you have: * blood sugars that are consistently running too high (above 250) or too low ( below 70) * temperature above 101 * chest pain or trouble breathing * abdominal pain, nausea, vomiting * diarrhea, dark stools or bloody stools * any unanswered questions or concerns Call 911 if symptoms are severe. Call if you have any questions or problems. My cell # is [phone]. You can also reach a [facility] hospitalist on duty at [facility] 24 hours a day by calling [phone]. Please take good care of yourself. Jj Olvera . Current Hospital Diet Patient's current hospital diet: Diabetes Type 2 Diet Discharge Diet Recommended Diet: AHA Diet (Heart Healthy), Diabetes Type 2 Diet Pending Studies Studies pending at discharge: no Laboratory Results Hemoglobin A1c Test 08/24/17 11:30 Range/Units Estimated Average Glucose 435 mg/dl Hemoglobin A1c 16.8 H 4.5-5.6 % Medical Emergencies . Who to Call and When: Medical Emergencies: If at any time you feel your situation is an emergency, please call 911 immediately. . Non-Emergent Contact Non-Emergency issues call your: Primary Care Provider, Hospital Doctor . . "Provider Documentation" section prepared by Jj Olvera. . VTE Core Measure Inpt VTE Proph given/why not?: Unfractionated heparin SQ, Other Anticoagulation (rivaroxaban) . Additional Copies To Dashawn Fuentes M.D.(RAHEEM
== END 2017-08-28 16:10 | disposition home or self-care (01) | DRG 637 ==
LOC: C.EDB 10:48 → C.MSICU 14:39 → ENRESERV 14:52 → C.2E 08-26 11:06 → ENRESERV 08-27 11:35 → C.MS2W 08-27 13:26
PROVIDERS: ADMIT Hospitalist; ATTEND Hospitalist
DX: E11.00 Type 2 diabetes mellitus with hyperosmolarity without nonketotic hyperglycemic-hyperosmolar coma (NKHHC) (principal); G93.41 Metabolic encephalopathy; N17.9 Acute kidney failure, unspecified; D68.2 Hereditary deficiency of other clotting factors; G89.4 Chronic pain syndrome; F32.9 Major depressive disorder, single episode, unspecified; E78.5 Hyperlipidemia, unspecified; I10 Essential (primary) hypertension; K21.9 Gastro-esophageal reflux disease without esophagitis; F17.200 Nicotine dependence, unspecified, uncomplicated; E86.0 Dehydration; E87.5 Hyperkalemia; E87.8 Other disorders of electrolyte and fluid balance, not elsewhere classified; Z86.711 Personal history of pulmonary embolism; Z87.01 Personal history of pneumonia (recurrent); Z91.14 Patient's other noncompliance with medication regimen; Z83.3 Family history of diabetes mellitus

== ENCOUNTER → 2017-09-12 | Outpatient (CLI) | payer OTHER ==
[~2017-09-12] MED LIST changes: -BUPR100T8 PO; -CLOB-65 TOP; +DOCU-149 PO; -DOCU-94 PO; -FLUT0.15 NAE; -GABA800T PO; +INSU100I23 INJ; -LISI-729 PO; +LSN5 PO; +METF500T5 PO; -METH10SO PO; +NRN800 PO; +NVLGIPEN INJ; -OMEP40CA PO; +OMEP40CA41 PO; -RIVA1.5T PO; +SIMV-151 PO; -SIMV20TA2 PO; -SULF800T23 PO; +SUMA100T15 PO; -SUMA100T16 PO; -TRIA37.5 PO; +VALA1TAB31 PO; -VENL75CA73 PO; +WLLSR150 PO; +XRL15 PO; +[UNRECOGNIZED DRUG - CODE] PO; -[UNRECOGNIZED DRUG - REMARK] PO
== END | disposition home or self-care (01) ==
LOC: C.CPL 13:13
PROVIDERS: ATTEND Emergency Medicine Emergency Medical Services
DX: F11.20 Opioid dependence, uncomplicated (principal)

== ENCOUNTER 2017-10-19 14:52 | Emergency (ER) | payer OTHER ==
[~2017-10-19] VITALS: Ht 185.4 cm; Wt 152.0 kg
[2017-10-19 14:54] VITALS: PULSE 103; TEMP 36.3; Ht 185.4 cm; Wt 152.0 kg
[2017-10-19] MEDS ORDERED: INSU100I23 SQ (15:03)
--- NOTE | 2017-10-19 16:42 | DIAGNOSTIC IMAGING REPORT ---
(TESTICULAR) SCROTUM-CONT HISTORY: Pain. Edema. scrotal swelling and redness COMPARISON: None. FINDINGS: Right testis: Maximum linear dimension 5.0 cm. Normal vascular flow Left testis: Maximum dimension 4.7 cm. Normal vascular flow IMPRESSION: Normal testicular ultrasound. Mild scrotal wall thickening. The above report was generated using voice recognition software. It may contain grammatical, syntax or spelling errors. Electronically signed by: Robel Faulkner M.D. 10/19/2017 4:41 PM Dictated Date/Time: 10/19/2017 4:39 PM
[2017-10-19 16:50] VITALS: BP 139/78; O2SAT 97
--- NOTE | 2017-10-20 17:21 | EMERGENCY ROOM VISIT NOTE ---
ED Visit Note First contact with patient: 15:07 Chief Complaint: My scrotum is swollen. History of Present Illness: Mr. Blake is a 42-year-old white male who ambulates into the ED complaining of scrotal itching and swelling. Patient reports he started wearing a new of underwear last evening before bed. After going to bed he noted itching of his scrotum. When he woke up this morning he noted a couple hives over his scrotum and then started having some scrotal swelling. He is expressing concerns about a possible allergic reaction. He does report he has taken 25 mg of Benadryl prior to coming to the hospital and has resolution of itching. Associated with the symptoms he is reported as having a mild stinging sensation of the skin of the scrotum. He rates this discomfort 3/10. The pain was nonradiating. The pain worsens when he was itching. He did not take anything for pain prior to arrival at the hospital. He denies any associated symptoms including fevers, chills, sweats, recent trauma, abdominal pain, urinary burning , increased urinary frequency, urinary urgency, abdominal pain, nausea, vomiting. Review of Systems: As noted above in history of present illness. 8 body systems were reviewed and found to be negative as noted above. Past Medical History: Chronic pain syndrome, chronic deep vein thrombus, degenerative lumbar disc disease, diabetes, discitis, depression, dyslipidemia, factor V Leiden disease, GERD, pulmonary embolism, hypertension, migraine headaches, thoracic still myelitis, pneumonia, status post left hip arthroplasty and left knee anterior cruciate ligament repair Current Medications: Metformin, insulin, lisinopril, simvastatin, Prilosec, as her toe, gabapentin, Imitrex, Valtrex, docusate, bupropion, methadone. Allergies to Medications: Acetaminophen, amoxicillin, aspirin, clindamycin, azithromycin, tramadol, penicillin, NSAIDs, duloxetine, ketorolac tromethamine. Social History: Patient is not employed; he feels safe in his home environment; he admits to tobacco use. Physical Examination: Vital Signs: Date Time Temp Pulse Resp B/P (MAP) Pulse Ox O2 Delivery O2 Flow Rate FiO2 10/19/17 16:50 20 139/78 97 Room Air 10/19/17 14:54 36.3 103 16 159/88 96 GENERAL: 42-year-old male in mild distress due to symptoms, nontoxic-appearing, afebrile and hemodynamically stable. NEUROLOGICAL: Awake, alert and oriented to person, place and time. Answering questions appropriately and following commands. Normal gait. Good hand eye coordination. No focal motor sensory deficits. SKIN: Warm, dry and pink. Genitals: Patient has mild erythema over the entire scrotum which is slightly more pronounced on the left side. I also notes some mild erythema just superior to the genitals over the suprapubic area. This area does not appear cellulitic. There are no hives in this area. There is no lymphangitis. This area of erythema is mildly warm to the touch when compared to other body parts. THORAX: Lungs sounds are clear to auscultation and equal bilaterally with symmetrical chest wall. No wheezing, rales or rhonchi. ABDOMEN: Obese, soft and nontender. Positive bowel sounds in all quadrants. No guarding, rigidity or organomegaly. GENITALS: Please note soft tissue description above under SKIN. Mature uncircumcised penis. The penis is actually retracted partially into the scrotum. It is easily removed and there is no phimosis or paraphimosis. There is no erythema or edema to the glans. There is minimal erythema around external ureter opening. No drainage from the opening. No tenderness over the glans or penis. The scrotum is swollen and has mild erythema as noted above. There is no testicular tenderness. There is normal testicular lie. There is no erythema or edema in the inguinal areas. There is no local lymphadenopathy. ED Course: Patient is assessed as noted above. Patient's medication list was reviewed. Testicular/Scrotum Ultrasound: Was reviewed by myself and read by the radiologist showing normal testicular dimensions and vascular flow. Mild scrotal wall thickening. Patient's case was reviewed with Dr. Myers; we agreed on diagnostic approach , treatment, disposition and plan. Patient was educated about today's findings and instructed on his treatment plan ; he verbalized understanding and agreement with this plan. Clinical Impression: Scrotal swelling and mild erythema. Decision-Making: Initially my differential diagnosis I considered testicular torsion, cellulitis, kidney infection, , scrotal abscess and other causes. Disposition: Patient discharged home in stable condition; prior to departure he was reassessed and subjectively reported that he was pain-free. Plan: Patient was encouraged to continue his current medications as prescribed. Patient is encouraged use 50 mg of Benadryl every 6 hours as needed for itching. Patient was encouraged use cool compresses or ice bags on the scrotum 4-5 times a day. Patient is encouraged follow-up with his PCP for recheck if no better in 3-4 days. Patient was encouraged return ED for worsening itching, worsening swelling, fevers, urinary burning, bloody urine or any new/concerning symptoms.
== END 2017-10-19 17:05 | disposition home or self-care (01) ==
LOC: C.EDB 14:53 → C.EDD 17:05
DX: N50.82 Scrotal pain (principal); N50.89 Other specified disorders of the male genital organs